=== PATIENT | male | born 1970 | race Caucasian/White ===

== ENCOUNTER 2016-08-28 10:26 | Observation (INO) | payer OTHER ==
[2016-08-28] MEDS ORDERED: methylPREDNISolone Sodium Succinate 125 MG/2 ML SDV IVPUSH ONE (10:52)
[2016-08-28] MEDS: Sodium Chloride 0.9% 1,000 ML IV ONE ×2 (11:08→15:13)
--- NOTE | 2016-08-28 11:08 | EDM.PDOC ---
<Hiren Fitzgerald - Last Filed: 08/28/16 12:38> ED HISTORY OF PRESENT ILLNESS - General Chief Complaint: Respiratory Problem Stated Complaint: ASHMA Time Seen by Provider: 08/28/16 10:53 - Related Data Allergies/ADRs: Allergies Allergy/AdvReac Type Severity Reaction Status Date / Time No Known Allergies Allergy Verified 08/28/16 10:44 Home Meds: Home Meds Albuterol [Ventolin HFA] 2 inh INH BID 08/28/16 [History] Albuterol/Ipratropium [DuoNeb 3.0-0.5 MG/3 ML] 1 ampule PO ASDIRECTED 08/28/16 [ History] Losartan/Hydrochlorothiazide [Losartan-HCTZ 50-12.5 MG] 1 tab PO DAILY 08/28/16 [History] Mometasone/Formoterol [Dulera 200-5 MCG] 2 inh PO BID 08/28/16 [History] Montelukast [Singulair] 1 tab PO DAILY 08/28/16 [History] Course - Vital Signs Last Recorded V/S: Last Vital Signs Temp 36.5 C 08/28/16 11:41 Pulse 97 08/28/16 13:35 Resp 16 08/28/16 11:41 BP 150/72 H 08/28/16 13:35 Pulse Ox 88 L 08/28/16 13:35 - Orders/Labs/Meds Orders: Active Orders 24 hr Category Date Time Status RT Aerosol Therapy [RC] ASDIRECTED Care 08/28/16 11:40 Active Magnesium Sulfate/Water [Magnesium Sulfate 2 GM in Med 08/28/16 12:48 Active Water 50 ML] 2 gm Premix Bag 1 bag IV ONETIME Medication Orders Magnesium Sulfate 2 gm/ Premix 50 mls @ 25 mls/hr IV ONETIME ONE Stop: 08/28/16 14:47 Last Admin: 08/28/16 13:01 Dose: 25 mls/hr Labs: Laboratory Tests 08/28/16 08/28/16 Range/Units 11:16 11:16 WBC 7.09 (4.0-11.0) K/uL RBC 4.68 (4.50-5.90) M/uL Hgb 14.6 (13.0-17.0) g/dL Hct 42.8 (38.0-50.0) % MCV 91.5 (80.0-98.0) fL MCH 31.2 (27.0-32.0) pg MCHC 34.1 (31.0-37.0) g/dL RDW Std Deviation 47.0 (28.0-62.0) fl RDW Coeff of Jesika 14 (11.0-15.0) % Plt Count 224 (150-400) K/uL MPV 9.60 (7.40-12.00) fL Neut % (Auto) 69.7 (48.0-80.0) % Lymph % (Auto) 12.7 L (16.0-40.0) % Grundy % (Auto) 3.8 (0.0-15.0) % Eos % (Auto) 12.7 H (0.0-7.0) % Baso % (Auto) 1.1 (0.0-1.5) % Neut # (Auto) 4.9 (1.4-5.7) K/uL Lymph # (Auto) 0.9 (0.6-2.4) K/uL Grundy # (Auto) 0.3 (0.0-0.8) K/uL Eos # (Auto) 0.9 H (0.0-0.7) K/uL Baso # (Auto) 0.1 (0.0-0.1) K/uL Nucleated RBC % 0.0 /100WBC Nucleated RBCs # 0 K/uL Sodium 142 (136-146) mmol/L Potassium 4.2 (3.5-5.1) mmol/L Chloride 113 H (98-110) mmol/L Carbon Dioxide 19 L (21-31) mmol/L BUN 22 (6.0-23.0) mg/dL Creatinine 1.1 (0.6-1.5) mg/dL Est Cr Clr Drug Dosing 88.42 mL/min Estimated GFR (MDRD) > 60.0 ml/min Glucose 104 (60-110) mg/dL Calcium 8.8 (8.8-10.8) mg/dL Total Bilirubin 0.9 (0.1-1.5) mg/dL AST 29 (5-40) IU/L ALT 66 H (8-54) IU/L Alkaline Phosphatase 83 (40-150) Total Protein 6.8 (6.0-8.0) g/dL Albumin 4.1 (3.5-5.0) g/dL Globulin 2.7 (2.0-3.5) g/dL Albumin/Globulin Ratio 1.5 (1.3-2.8) Meds: Medications Generic Name Dose Route Start Last Admin Trade Name Freq PRN Reason Stop Dose Admin Magnesium Sulfate 2 gm/ Premix 50 mls @ 25 mls/hr 08/28/16 12:48 08/28/16 13: 01 IV 08/28/16 14:47 25 mls/hr ONETIME ONE Administration Discontinued Medications Generic Name Dose Route Start Last Admin Trade Name Freq PRN Reason Stop Dose Admin Sodium Chloride 1,000 mls @ 999 mls/hr 08/28/16 10:52 08/28/16 11:08 Normal Saline IV 08/28/16 11:52 999 mls/hr STAT ONE Administration Methylprednisolone Sodium Succinate 125 mg 08/28/16 10:52 08/28/16 11:07 Solu-Medrol IVPUSH 08/28/16 10:53 125 mg ONETIME ONE Administration Racepinephrine 0.5 ml 08/28/16 11:40 08/28/16 11:46 S-2 2.25% NEB 08/28/16 11:41 0.5 ml ONETIME ONE Administration Departure - Departure Disposition: Home, Self-Care 01 Clinical Impression: Exacerbation of asthma Instructions: Asthma, Adult Referrals: PCP,None [Primary Care Provider] - Forms: ED Department Discharge Additional Instructions: The following information is given to patients seen in the emergency department who are being discharged to home. This information is to outline your options for follow-up care. We provide all patients seen in our emergency department with a follow-up referral. The need for follow-up, as well as the timing and circumstances, are variable depending upon the specifics of your emergency department visit. If you don't have a primary care physician on staff, we will provide you with a referral. We always advise you to contact your personal physician following an emergency department visit to inform them of the circumstance of the visit and for follow-up with them and/or the need for any referrals to a consulting specialist. The emergency department will also refer you to a specialist when appropriate. This referral assures that you have the opportunity for follow-up care with a specialist. All of these measure are taken in an effort to provide you with optimal care, which includes your follow-up. Under all circumstances we always encourage you to contact your private physician who remains a resource for coordinating your care. When calling for follow-up care, please make the office aware that this follow-up is from your recent emergency room visit. If for any reason you are refused follow-up, please contact the [facility] Emergency Department at and asked to speak to the emergency department charge nurse. Take your routine asthma medicine as directed Followup with your primary care provider one to 2 days There will be benefit for a pulmonology workup as well as an general manager land department Return to ED as needed as discussed - My Orders Last 24 Hours: My Active Orders 08/28/16 11:40 RT Aerosol Therapy [RC] ASDIRECTED - Assessment/Plan Last 24 Hours: My Active Orders 08/28/16 11:40 RT Aerosol Therapy [RC] ASDIRECTED <Hernan Terry - Last Filed: 08/28/16 13:59> ED HISTORY OF PRESENT ILLNESS - General Source of Information: Reports: Patient, Family History Limitations: Reports: No limitations - History of Present Illness INITIAL COMMENTS - FREE TEXT/NARRATIVE: History of present illness: [51-year-old male presenting with acute onset of shortness of breath. Patient has a long-term history of asthma with a reactive airway component and [facility]. Provider [facility] called and requested we evaluate and treat patient further due to their limited resources.] Review of systems: As per history of present illness and below otherwise all systems reviewed and negative. Past medical history: As per history of present illness and as reviewed below otherwise noncontributory. Surgical history: As per history of present illness and as reviewed below otherwise noncontributory. Social history: No reported history of drug or alcohol abuse. Family history: As per history of present illness and as reviewed below otherwise noncontributory. Physical exam: HEENT: Atraumatic, normocephalic, pupils reactive, negative for conjunctival pallor or scleral icterus, mucous membranes moist, throat clear, neck supple, nontender, trachea midline. Lungs: Clear to auscultation, breath sounds equal bilaterally, chest nontender. Heart: S1S2, regular, negative for clicks, rubs, or JVD. Abdomen: Soft, nondistended, nontender. Negative for masses or hepatosplenomegaly. Negative for costovertebral tenderness. Pelvis: Stable nontender. Genitourinary: Deferred. Rectal: Deferred. Extremities: Atraumatic, negative for cords or calf pain. Neurovascular unremarkable. Neuro: Awake, alert, oriented. Cranial nerves II through XII unremarkable. Cerebellum unremarkable. Motor and sensory unremarkable throughout. Exam nonfocal. Diagnostics: [Chest x-ray, CBC, CMP] Therapeutics: [Syncope, magnesium, IV fluid, some lateral] Impression: [Asthma exacerbation] Plan: [Continue on asthma meds] Definitive disposition and diagnosis as appropriate pending reevaluation and review of above. ED ROS GENERAL - Review of Systems Review Of Systems: See Below (History of present illness) ED EXAM, GENERAL - Physical Exam Exam: See Below (See history of present illness) Course - Vital Signs Last Recorded V/S: Last Vital Signs Temp 36.5 C 08/28/16 11:41 Pulse 97 08/28/16 13:35 Resp 16 08/28/16 11:41 BP 150/72 H 08/28/16 13:35 Pulse Ox 88 L 08/28/16 13:35 - Orders/Labs/Meds Labs: Laboratory Tests 08/28/16 08/28/16 Range/Units 11:16 11:16 WBC 7.09 (4.0-11.0) K/uL RBC 4.68 (4.50-5.90) M/uL Hgb 14.6 (13.0-17.0) g/dL Hct 42.8 (38.0-50.0) % MCV 91.5 (80.0-98.0) fL MCH 31.2 (27.0-32.0) pg MCHC 34.1 (31.0-37.0) g/dL RDW Std Deviation 47.0 (28.0-62.0) fl RDW Coeff of Jesika 14 (11.0-15.0) % Plt Count 224 (150-400) K/uL MPV 9.60 (7.40-12.00) fL Neut % (Auto) 69.7 (48.0-80.0) % Lymph % (Auto) 12.7 L (16.0-40.0) % Grundy % (Auto) 3.8 (0.0-15.0) % Eos % (Auto) 12.7 H (0.0-7.0) % Baso % (Auto) 1.1 (0.0-1.5) % Neut # (Auto) 4.9 (1.4-5.7) K/uL Lymph # (Auto) 0.9 (0.6-2.4) K/uL Grundy # (Auto) 0.3 (0.0-0.8) K/uL Eos # (Auto) 0.9 H (0.0-0.7) K/uL Baso # (Auto) 0.1 (0.0-0.1) K/uL Nucleated RBC % 0.0 /100WBC Nucleated RBCs # 0 K/uL Sodium 142 (136-146) mmol/L Potassium 4.2 (3.5-5.1) mmol/L Chloride 113 H (98-110) mmol/L Carbon Dioxide 19 L (21-31) mmol/L BUN 22 (6.0-23.0) mg/dL Creatinine 1.1 (0.6-1.5) mg/dL Est Cr Clr Drug Dosing 88.42 mL/min Estimated GFR (MDRD) > 60.0 ml/min Glucose 104 (60-110) mg/dL Calcium 8.8 (8.8-10.8) mg/dL Total Bilirubin 0.9 (0.1-1.5) mg/dL AST 29 (5-40) IU/L ALT 66 H (8-54) IU/L Alkaline Phosphatase 83 (40-150) Total Protein 6.8 (6.0-8.0) g/dL Albumin 4.1 (3.5-5.0) g/dL Globulin 2.7 (2.0-3.5) g/dL Albumin/Globulin Ratio 1.5 (1.3-2.8) Meds: Medications Generic Name Dose Route Start Last Admin Trade Name Freq PRN Reason Stop Dose Admin Magnesium Sulfate 2 gm/ Premix 50 mls @ 25 mls/hr 08/28/16 12:48 08/28/16 13: 01 IV 08/28/16 14:47 25 mls/hr ONETIME ONE Administration Discontinued Medications Generic Name Dose Route Start Last Admin Trade Name Freq PRN Reason Stop Dose Admin Sodium Chloride 1,000 mls @ 999 mls/hr 08/28/16 10:52 08/28/16 11:08 Normal Saline IV 08/28/16 11:52 999 mls/hr STAT ONE Administration Methylprednisolone Sodium Succinate 125 mg 08/28/16 10:52 08/28/16 11:07 Solu-Medrol IVPUSH 08/28/16 10:53 125 mg ONETIME ONE Administration Racepinephrine 0.5 ml 08/28/16 11:40 08/28/16 11:46 S-2 2.25% NEB 08/28/16 11:41 0.5 ml ONETIME ONE Administration Departure - Departure Time of Disposition: 13:56 Condition: good
[2016-08-28] MEDS ORDERED: Racepinephrine 2.25% 0.5 ML Neb Soln NEB ONE (11:40)
[2016-08-28 12:00] LABS: CHLORIDE,CL 113 mmol/L (98-110); SODIUM,NA 142 mmol/L (136-146)
[2016-08-28] MEDS ORDERED: Magnesium Sulfate/Water 2 GM in Premix Bag 1 BAG IV ONE (12:48)
--- NOTE | 2016-08-28 13:14 | CR ---
EXAMINATION: Two-view chest (PA and Lateral views). HISTORY: Shortness of breath. FINDINGS: The trachea is midline. The cardiomediastinal silhouette is within normal limits. No pulmonary infil trates, effusions or pneumothorax. Osseous structures appear unremarkable. IMPRESSION: No acute cardiopulmonary process.
[2016-08-28] MEDS ORDERED: Albuterol/Ipratropium 3.0-0.5 MG/3 ML Neb Soln NEB ONE (14:12)
[2016-08-28] MEDS ORDERED: Sodium Chloride 0.9% 250 ML IV SCH (15:00)
--- NOTE | 2016-08-28 16:06 | PCM.HP ---
H&P History of Present Illness - General Date of Service: 08/28/16 Admit Problem/Dx: Admission Diagnosis/Problem Admission Diagnosis/Problem Asthma without status asthmaticus Source of Information: Patient, Family ( Julia at bedside) History Limitations: Reports: No limitations - History of Present Illness Initial Comments - Free Text/Narative: This 46 year old male with pmh of asthma, environmental allergies, and HTN presented to the ED today with complaints of 4 day history of SOB, cough, and sinus congestion. It has progressively worsened and his , Julia, urged him to be evaluated. He denies fever, chills, chest pain or palpitations. No N/V or abdominal pain. He takes Singulair, Dulera, Albuterol inhaler PRN, and Flonase occasionally. He reports being in [place] has worsened his allergies significantly than home in the [facility]. His contract ends in October and is hoping to move back home. In the ED no leukocytosis noted, eosinophils elevated, 12.7. BMP WNL. CXR negative. He was noted to have mild hypoxia on RA, with wheezing throughout. He was treated with Duonebs, Solumedrol, and Magnesium IV. He will be admitted for asthma exacerbation and mild hypoxia. - Related Data Allergies/Adverse Reactions: Allergies Allergy/AdvReac Type Severity Reaction Status Date / Time No Known Allergies Allergy Verified 08/28/16 10:44 Home Medications: Home Meds Albuterol [Ventolin HFA] 2 inh INH BID 08/28/16 [History] Albuterol/Ipratropium [DuoNeb 3.0-0.5 MG/3 ML] 1 ampule PO ASDIRECTED 08/28/16 [ History] Losartan/Hydrochlorothiazide [Losartan-HCTZ 50-12.5 MG] 1 tab PO DAILY 08/28/16 [History] Mometasone/Formoterol [Dulera 200-5 MCG] 2 inh PO BID 08/28/16 [History] Montelukast [Singulair] 1 tab PO DAILY 08/28/16 [History] Past Medical History Cardiovascular History: Reports: High cholesterol, Hypertension. Denies: Afib, Blood clots/VTE/DVT, HI Respiratory History: Reports: Asthma. Denies: PE, Sleep apnea Gastrointestinal History: Reports: Chronic constipation, GERD. Denies: Gastritis, GI bleed Endocrine/Metabolic History: Reports: Obesity/BMI 30+. Denies: Diabetes, type II, Hypothyroidism - Infectious Disease History Infectious Disease History: Reports: Chicken pox - Past Surgical History Musculoskeletal Surgical History: Reports: Other (see below) Other Musculoskeletal Surgeries/Procedures:: Right arm bicep muscle reattachment Social & Family History - Family History Family Medical History: Noncontributory - Tobacco Use Smoking Status *Q: Never Smoker Tobacco Use Within Last Twelve Months: Smokeless Tobacco Packs/Tins Daily: 1 (1 tin per day) Second Hand Smoke Exposure: Yes - Tobacco Core Measures Tobacco Use/Smoking Within Last 30 Days: Yes Smoking Frequency Within Last 30 Days: Reports: None Smokeless Tobacco Use in Last 30 Days: Yes Smokeless Tobacco Use History: Chewing Tobacco - Caffeine Use Caffeine Use: Reports: Soda - Alcohol Use Alcohol Use Frequency: Socially - Recreational Drug Use Recreational Drug Use: No - Living Situation & Occupation Living situation: Reports: Occupation: employed H&P Review of Systems - Review of Systems: Review Of Systems: See Below General: Reports: no symptoms. Denies: fever, chills, weakness HEENT: Reports: sinus congestion, other (itchy ears) Pulmonary: Reports: Shortness of Breath, Wheezing, Pleuritic Chest Pain, Cough. Denies: Sputum Cardiovascular: Reports: no symptoms. Denies: chest pain, palpitations, edema Gastrointestinal: Reports: No symptoms, Constipation (chronic). Denies: Black stool, Bloody stool, Nausea, Vomiting Genitourinary: Reports: no symptoms. Denies: dysuria, frequency, burning, pain Musculoskeletal: Reports: no symptoms Skin: Reports: no symptoms Psychiatric: Reports: no symptoms Neurological: Reports: No Symptoms Hematologic/Lymphatic: Reports: no symptoms Immunologic: Reports: no symptoms Exam - Exam Exam: See Below - Vital Signs Vital Signs: Last Vital Signs Temp 98.2 F 08/28/16 14:15 Pulse 101 H 08/28/16 14:15 Resp 20 08/28/16 14:15 BP 145/92 H 08/28/16 14:15 Pulse Ox 92 L 08/28/16 14:15 Weight: 127.006 kg - Exam General: alert, oriented, cooperative HEENT: Conjunctiva clear, EACs clear, EOMI, Hearing intact, Mucosa moist & pink , Posterior pharynx clear. No: Nares patent (sinus congestion) Neck: supple, trachea midline, 2+ carotid pulse wo bruit Lungs: Decreased breath sounds, Rhonchi, Wheezing Cardiovascular: regular rate, regular rhythm, normal S1, normal S2 Abdomen: normal bowel sounds, soft. No: organomegaly Extremities: normal inspection, normal pulses Neuro Extensive - Mental Status: alert, oriented x3, normal mood/affect, normal cognition Psychiatric: alert, normal affect, normal mood - Patient Data Result Diagrams: 08/28/16 11:16 08/28/16 11:16 *Q Meaningful Use (ADM) - VTE *Q VTE Criteria *Q: - VTE Risk Assess *Q Each Risk Factor Represents 1 Point: Age 41 - 59 years Total Score 1 Point Risk Factors: 1 Each Risk Factor Represents 2 Points: None Total Score 2 Point Risk Factors: 0 Each Risk Factor Represents 3 Points: None Total Score 3 Point Risk Factors: 0 Each Risk Factor Represents 5 Points: None Total Score 5 Point Risk Factors: 0 Venous Thromboembolism Risk Factor Score *Q: 1 - Stroke *Q Stroke Criteria *Q: - AMI *Q AMI Criteria *Q: - Problem List (1) Exacerbation of asthma SNOMED Code(s): 462612048 ICD Code: J45.901 - UNSPECIFIED ASTHMA WITH (ACUTE) EXACERBATION Status: Acute Current Visit: Yes (2) Environmental and seasonal allergies SNOMED Code(s): 325109536, 214666854, 648596833 ICD Code: J30.89 - OTHER ALLERGIC RHINITIS Status: Acute Current Visit: Yes (3) HTN (hypertension) SNOMED Code(s): 79549571 ICD Code: I10 - ESSENTIAL (PRIMARY) HYPERTENSION Status: Chronic Current Visit: Yes Qualifiers: Hypertension type: essential hypertension Qualified Code(s): I10 - Essential (primary) hypertension Problem List Initiated/Reviewed/Updated: Yes Orders Last 24hrs: Medication Orders Sodium Chloride (Normal Saline) 250 mls @ 999 mls/hr IV STAT DOMINIQUE Assessment/Plan Comment:: This 46 year old male admitted with asthma exacerbation with mild hypoxia 1. Asthma exacerbation iwth mild hypoxia: Continue IV Solu-medrol IV 125 mg Q8hrs. Duonebs, oxygen as needed. Continue Singulair and Flonase. Will add Loratadine. 2. HTN: Continue Losartan/HCTZ VTE: SCDs Dispo: 1-2 days pending improvement.
[2016-08-28] MEDS ORDERED: Acetaminophen 325 MG Tab PO PRN (16:12)
[2016-08-28] MEDS ORDERED: Ondansetron 4 MG/2 ML SDV IVPUSH PRN (16:12)
[2016-08-28] MEDS ORDERED: Albuterol 0.083% 2.5 MG/3 ML Neb Soln NEB PRN (16:12)
[2016-08-28] MEDS: Loratadine 10 MG Tab PO SCH (17:07)
[2016-08-28] MEDS ORDERED: methylPREDNISolone Sodium Succinate 125 MG/2 ML SDV IVPUSH SCH ×2 (18:00→22:00)
[2016-08-28] MEDS: Albuterol/Ipratropium 3.0-0.5 MG/3 ML Neb Soln NEB SCH ×2 (18:09→20:59)
[2016-08-28] MEDS ORDERED: Hydrochlorothiazide/Losartan 12.5-50 mg Tab PO SCH (21:00)
[2016-08-28] MEDS ORDERED: LORazepam 1 MG Tab PO ONE (21:00)
[2016-08-28] MEDS ORDERED: DULERA PO SCH (21:00)
[2016-08-28] MEDS: Fluticasone Propionate Nasal Spray 16 GM Bottle NASBOTH SCH (21:01)
[2016-08-29] MEDS: Albuterol/Ipratropium 3.0-0.5 MG/3 ML Neb Soln NEB SCH ×3 (02:13→10:31)
[2016-08-29 05:38] LABS: CHLORIDE,CL 111 mmol/L (98-110); SODIUM,NA 140 mmol/L (136-146)
--- NOTE | 2016-08-29 07:50 | PCM.PN ---
- General Info Date of Service: 08/29/16 Admission Dx/Problem (Free Text): Admission Diagnosis/Problem Admission Diagnosis/Problem Asthma without status asthmaticus - Patient Data Vitals - most recent: Last Vital Signs Temp 97.4 F 08/29/16 04:00 Pulse 111 H 08/29/16 00:28 Resp 20 08/29/16 04:00 BP 141/84 H 08/29/16 04:00 Pulse Ox 90 L 08/29/16 04:00 Weight - most recent: 127.006 kg I&O - last 24 hours: Intake & Output 08/28/16 08/29/16 08/29/16 22:59 06:59 14:59 Intake Total 200 Output Total 3 Balance 197 Lab Results last 24 hrs: Laboratory Results - last 24 hr 08/29/16 Range/Units 04:49 Sodium 140 (136-146) mmol/L Potassium 4.7 (3.5-5.1) mmol/L Chloride 111 H (98-110) mmol/L Carbon Dioxide 18 L (21-31) mmol/L BUN 19 (6.0-23.0) mg/dL Creatinine 1.1 (0.6-1.5) mg/dL Est Cr Clr Drug Dosing 88.06 mL/min Estimated GFR (MDRD) > 60.0 ml/min Glucose 130 H (60-110) mg/dL Calcium 9.5 (8.8-10.8) mg/dL Med Orders - Current: Current Medications Acetaminophen (Tylenol) 650 mg PO Q4H PRN PRN Reason: Pain Albuterol (Proventil Neb Soln) 2.5 mg NEB Q2H PRN PRN Reason: Shortness Of Breath/wheezing Albuterol/Ipratropium (Duoneb 3.0-0.5 Mg/3 Ml) 3 ml NEB Q4HRRT [facility] Last Admin: 08/29/16 05:59 Dose: Not Given Fluticasone Propionate (Flonase) 0 gm NASBOTH BID [facility] Last Admin: 08/28/16 21:01 Dose: 1 spray HCTZ/Losartan Potassium (Hyzaar 50-12.5 Mg) 1 tab PO BEDTIME [facility] Last Admin: 08/28/16 21:01 Dose: 1 tab Sodium Chloride (Normal Saline) 250 mls @ 999 mls/hr IV STAT DOMINIQUE Loratadine (Claritin) 10 mg PO DAILY [facility] Last Admin: 08/28/16 17:07 Dose: 10 mg Methylprednisolone Sodium Succinate (Solu-Medrol) 60 mg IVPUSH Q12H [facility] Last Admin: 08/28/16 22:44 Dose: 60 mg Montelukast Sodium (Singulair) 10 mg PO DAILY [facility] Dulera 100 Mcg/ 5mcg (Own Med) 0 each PO BID [facility] Ondansetron HCl (Zofran) 4 mg IVPUSH Q4H PRN PRN Reason: Nausea Discontinued Medications Albuterol/Ipratropium (Duoneb 3.0-0.5 Mg/3 Ml) 3 ml NEB ONETIME ONE Stop: 08/28/16 14:13 Last Admin: 08/28/16 14:20 Dose: 3 ml Sodium Chloride (Normal Saline) 1,000 mls @ 999 mls/hr IV STAT ONE Stop: 08/28/16 11:52 Last Admin: 08/28/16 15:13 Dose: 999 mls/hr Magnesium Sulfate 2 gm/ Premix 50 mls @ 25 mls/hr IV ONETIME ONE Stop: 08/28/16 14:47 Last Admin: 08/28/16 13:01 Dose: 25 mls/hr Lorazepam (Ativan) 1 mg PO ONETIME ONE Stop: 08/28/16 21:01 Last Admin: 08/28/16 21:02 Dose: 1 mg Methylprednisolone Sodium Succinate (Solu-Medrol) 125 mg IVPUSH ONETIME ONE Stop: 08/28/16 10:53 Last Admin: 08/28/16 11:07 Dose: 125 mg Methylprednisolone Sodium Succinate (Solu-Medrol) 125 mg IVPUSH Q8H [facility] Dulera (Mometasone/ (Formoterol) 200-5mcg) 2 each PO BID [facility] Last Admin: 08/29/16 02:13 Dose: Not Given Racepinephrine (S-2 2.25%) 0.5 ml NEB ONETIME ONE Stop: 08/28/16 11:41 Last Admin: 08/28/16 11:46 Dose: 0.5 ml - Problem List & Annotations (1) Exacerbation of asthma SNOMED Code(s): 164971843 Code(s): J45.901 - UNSPECIFIED ASTHMA WITH (ACUTE) EXACERBATION Status: Acute Current Visit: Yes (2) Environmental and seasonal allergies SNOMED Code(s): 641283510, 492760997, 181255296 Code(s): J30.89 - OTHER ALLERGIC RHINITIS Status: Acute Current Visit: Yes (3) HTN (hypertension) SNOMED Code(s): 57951619 Code(s): I10 - ESSENTIAL (PRIMARY) HYPERTENSION Status: Chronic Current Visit: Yes Qualifiers: Hypertension type: essential hypertension Qualified Code(s): I10 - Essential (primary) hypertension - My Orders Last 24 Hours: My Active Orders 08/28/16 16:12 Intake and Output [RC] Q12H May Shower [RC] ASDIRECTED Oxygen Therapy [RC] PRN Up ad Naya [RC] ASDIRECTED Vital Signs [RC] Q4H Acetaminophen [Tylenol] 650 mg PO Q4H PRN Albuterol [Proventil Neb Soln] 2.5 mg NEB Q2H PRN Ondansetron [Zofran] 4 mg IVPUSH Q4H PRN Sequential Compression Device [OM.PC] Per Unit Routine Resuscitation Status Routine 08/28/16 16:13 Antiembolic Devices [RC] PER UNIT ROUTINE 08/28/16 16:14 RT Aerosol Therapy [RC] ASDIRECTED 08/28/16 16:15 Loratadine [Claritin] 10 mg PO DAILY 08/28/16 18:00 Albuterol/Ipratropium [DuoNeb 3.0-0.5 MG/3 ML] 3 ml NEB Q4HRRT 08/28/16 21:00 Fluticasone Propionate [Flonase] 0 gm NASBOTH BID Hydrochlorothiazide/Losartan [Hyzaar 50-12.5 MG] 1 tab PO BEDTIME 08/28/16 22:00 methylPREDNISolone Sod Succ [Solu-MEDROL] 60 mg IVPUSH Q12H 08/28/16 Dinner Regular Diet [DIET] 08/29/16 09:00 Montelukast [Singulair] 10 mg PO DAILY Non-Formulary Medication [NF Drug] 0 each PO BID - Plan Plan:: This 46 year old male admitted with asthma exacerbation with mild hypoxia 1. Asthma exacerbation iwth mild hypoxia: Continue IV Solu-medrol IV 125 mg Q8hrs. Duonebs, oxygen as needed. Continue Singulair and Flonase. Will add Loratadine. 2. HTN: Continue Losartan/HCTZ VTE: SCDs Dispo: 1-2 days pending improvement.
[2016-08-29 08:01] VITALS: BP 154/78
[2016-08-29] MEDS: Fluticasone Propionate Nasal Spray 16 GM Bottle NASBOTH SCH (08:34)
[2016-08-29] MEDS: Loratadine 10 MG Tab PO SCH (08:34)
--- NOTE | 2016-08-29 08:48 | PCM.DCSUM1 ---
Discharge Summary - Hospital Course Brief History: This 46 year old male with pmh of asthma, environmental allergies , and HTN presented to the ED 08/28/2016 with complaints of 4 day history of SOB, cough, and sinus congestion. It has progressively worsened and his , Julia, urged him to be evaluated, he was seen at local urgent care who referred to the ED for further evaluation. He denies fever, chills, chest pain or palpitations. No N/V or abdominal pain. He takes Singulair, Dulera, Albuterol inhaler PRN, and Flonase occasionally. [place] in [place] and is hoping to move back home. In the ED no leukocytosis noted, eosinophils elevated, 12.7. BMP WNL. CXR negative. He was noted to have mild hypoxia on RA, with wheezing throughout. He was treated with Duonebs, Solumedrol, and Magnesium IV. He will be admitted for asthma exacerbation and mild hypoxia. - Discharge Data Discharge Date: 08/29/16 Discharge Disposition: Home, Self-Care 01 Condition: Good - Discharge Diagnosis/Problem(s) (1) Neck strain SNOMED Code(s): 941146645 ICD Code: S16.1XXA - STRAIN OF MUSCLE, FASCIA AND TENDON AT NECK LEVEL, INIT Status: Acute Current Visit: No Qualifiers: Encounter type: initial encounter Qualified Code(s): S16.1XXA - Strain of muscle, fascia and tendon at neck level, initial encounter (2) HTN (hypertension) SNOMED Code(s): 72798450 Status: Chronic Current Visit: Yes (3) Exacerbation of asthma SNOMED Code(s): 158801111 Status: Acute Current Visit: Yes - Patient Instructions Diet: Regular Diet as Tolerated - Discharge Plan Prescriptions/Med Rec: predniSONE 20 mg PO WITHBREAKFAST #33 tablet Home Medications: Home Meds Albuterol [Ventolin 2 MG/5 ML] 02/01/16 [History] Aspirin 81 mg PO DAILY 02/01/16 [History] Mometasone/Formoterol [Dulera 200-5 MCG] 2 puff IH BIDRT 02/01/16 [History] Albuterol [Ventolin HFA] 05/06/16 [History] Albuterol [Ventolin HFA] 2 inh INH BID 08/28/16 [History] Albuterol/Ipratropium [DuoNeb 3.0-0.5 MG/3 ML] 1 ampule PO ASDIRECTED 08/28/16 [ History] Losartan/Hydrochlorothiazide [Losartan-HCTZ 50-12.5 MG] 1 tab PO DAILY 08/28/16 [History] Montelukast [Singulair] 1 tab PO DAILY 08/28/16 [History] Fluticasone Propionate [Flonase] 0 gm NASBOTH BID bottle 08/29/16 [Rx] Loratadine [Claritin] 10 mg PO DAILY #0 tablet 08/29/16 [Rx] predniSONE 20 mg PO WITHBREAKFAST #33 tablet 08/29/16 [Rx] Patient Handouts: Asthma, Adult, Prednisone tablets, Hypertension Referrals: Brock Gtz MD [Physician] - 09/05/16 10:00 am - Discharge Summary/Plan Comment DC Time >30 min.: No Discharge Summary/Plan Comment: Discharge diagnoses: Acute asthma exacerbation Seasonal allergies Omkar was treated with Solu-medrol 60 mg IV q12h for asthma exacerbation, as well as Loratadine, Flonase and Duonebs. This exacerbation is likely caused from seasonal allergies. Today he is off oxygen and sating 94% on RA with and without activity. He is feeling much better and is requesting discharge home. I will discharge him home today with continuing home inhalers, Dulera and albuterol nebulizers and inhaler PRN, SIngulair daily. I have encouraged him to use Flonase more regularly along with Loratadine. I will prescribed a long (2 weeks) steroid taper due to severity of exacerbation and mild hypoxia associated with it. He is to follow up with PCP in 1 week. He is to return to ED or clinic if any concerns should arise. - General Info Date of Service: 08/29/16 Admission Dx/Problem (Free Text: Admission Diagnosis/Problem Admission Diagnosis/Problem Asthma without status asthmaticus Subjective Update: Feeling much better today, Breathing has improving and is less SOB. Still feels like deep down he isn't opening up but feels 80% better compared to yesterday. reports similar feelings. He is removed off oygen this am, sating 94% on RA and ambulated with no decreased in oxygen. Requesting discharge this morning. Functional Status: Reports: pain controlled, tolerating diet, ambulating, urinating - Review of Systems General: Reports: No Symptoms. Denies: Fever HEENT: Reports: sinus congestion, other (ear itchiness has ). Denies: sore throat Pulmonary: Reports: shortness of breath (improved.), cough (dry cough intermittently). Denies: sputum Cardiovascular: Reports: No Symptoms. Denies: Chest Pain, Palpitations, Edema Gastrointestinal: Reports: No symptoms. Denies: Abdominal pain, Nausea, Vomiting Musculoskeletal: Reports: no symptoms Skin: Reports: no symptoms Neurological: Reports: No Symptoms Psychiatric: Reports: no symptoms - Patient Data Vitals - Most Recent: Last Vital Signs Temp 98.5 F 08/29/16 07:59 Pulse 111 H 08/29/16 00:28 Resp 20 08/29/16 07:59 BP 154/78 H 08/29/16 07:59 Pulse Ox 93 L 08/29/16 07:59 Weight - Most Recent: 127.006 kg I&O - Last 24 hours: Intake & Output 08/28/16 08/29/16 08/29/16 22:59 06:59 14:59 Intake Total 200 Output Total 3 Balance 197 Lab Results - Last 24 hrs: Laboratory Results - last 24 hr 08/29/16 Range/Units 04:49 Sodium 140 (136-146) mmol/L Potassium 4.7 (3.5-5.1) mmol/L Chloride 111 H (98-110) mmol/L Carbon Dioxide 18 L (21-31) mmol/L BUN 19 (6.0-23.0) mg/dL Creatinine 1.1 (0.6-1.5) mg/dL Est Cr Clr Drug Dosing 88.06 mL/min Estimated GFR (MDRD) > 60.0 ml/min Glucose 130 H (60-110) mg/dL Calcium 9.5 (8.8-10.8) mg/dL Med Orders - Current: Current Medications Acetaminophen (Tylenol) 650 mg PO Q4H PRN PRN Reason: Pain Albuterol (Proventil Neb Soln) 2.5 mg NEB Q2H PRN PRN Reason: Shortness Of Breath/wheezing Albuterol/Ipratropium (Duoneb 3.0-0.5 Mg/3 Ml) 3 ml NEB Q4HRRT [facility] Last Admin: 08/29/16 05:59 Dose: Not Given Fluticasone Propionate (Flonase) 0 gm NASBOTH BID [facility] Last Admin: 08/29/16 08:34 Dose: 1 spray HCTZ/Losartan Potassium (Hyzaar 50-12.5 Mg) 1 tab PO BEDTIME [facility] Last Admin: 08/28/16 21:01 Dose: 1 tab Sodium Chloride (Normal Saline) 250 mls @ 999 mls/hr IV STAT [facility] Loratadine (Claritin) 10 mg PO DAILY [facility] Last Admin: 08/29/16 08:34 Dose: 10 mg Methylprednisolone Sodium Succinate (Solu-Medrol) 80 mg IVPUSH Q12H [facility] Montelukast Sodium (Singulair) 10 mg PO DAILY [facility] Last Admin: 08/29/16 08:34 Dose: 10 mg Dulera 100 Mcg/ 5mcg (Own Med) 0 each PO BID [facility] Last Admin: 08/29/16 08:35 Dose: 2 each Ondansetron HCl (Zofran) 4 mg IVPUSH Q4H PRN PRN Reason: Nausea Discontinued Medications Albuterol/Ipratropium (Duoneb 3.0-0.5 Mg/3 Ml) 3 ml NEB ONETIME ONE Stop: 08/28/16 14:13 Last Admin: 08/28/16 14:20 Dose: 3 ml Sodium Chloride (Normal Saline) 1,000 mls @ 999 mls/hr IV STAT ONE Stop: 08/28/16 11:52 Last Admin: 08/28/16 15:13 Dose: 999 mls/hr Magnesium Sulfate 2 gm/ Premix 50 mls @ 25 mls/hr IV ONETIME ONE Stop: 08/28/16 14:47 Last Admin: 08/28/16 13:01 Dose: 25 mls/hr Lorazepam (Ativan) 1 mg PO ONETIME ONE Stop: 08/28/16 21:01 Last Admin: 08/28/16 21:02 Dose: 1 mg Methylprednisolone Sodium Succinate (Solu-Medrol) 125 mg IVPUSH ONETIME ONE Stop: 08/28/16 10:53 Last Admin: 08/28/16 11:07 Dose: 125 mg Methylprednisolone Sodium Succinate (Solu-Medrol) 125 mg IVPUSH Q8H [facility] Methylprednisolone Sodium Succinate (Solu-Medrol) 60 mg IVPUSH Q12H [facility] Last Admin: 08/28/16 22:44 Dose: 60 mg Dulera (Mometasone/ (Formoterol) 200-5mcg) 2 each PO BID [facility] Last Admin: 08/29/16 02:13 Dose: Not Given Racepinephrine (S-2 2.25%) 0.5 ml NEB ONETIME ONE Stop: 08/28/16 11:41 Last Admin: 08/28/16 11:46 Dose: 0.5 ml - Exam Quality Assessment: Reports: DVT prophylaxis. Denies: supplemental oxygen General: Reports: alert, oriented, cooperative HEENT: Reports: Pupils equal, Pupils reactive, EOMI, Mucous membr. moist/pink Neck: Reports: supple Lungs: Reports: Clear to auscultation, Normal respiratory effort, Decreased breath sounds (to bilateral bases). Denies: Wheezing Cardiovascular: Reports: Regular Rate, Regular Rhythm Abdomen: Reports: bowel sounds present, soft, no tenderness, no distension Extremities: Reports: no edema, normal pulses *Q Meaningful Use (DIS) - VTE *Q VTE Criteria *Q: - Stroke *Q Stroke Criteria *Q: - AMI *Q AMI Criteria *Q:
[2016-08-29] MEDS ORDERED: DULERA PO SCH (09:00)
[2016-08-29] MEDS ORDERED: Montelukast 10 MG Tab PO SCH (09:00)
[2016-08-29] MEDS ORDERED: methylPREDNISolone Sodium Succinate 125 MG/2 ML SDV IVPUSH SCH (10:00)
== END 2016-08-29 11:30 | disposition home or self-care (01) ==
LOC: EDBD 10:26 → MW.ED 10:26 → MW.MS 15:30 → MERGE 15:33 → MW.MS 15:33
PROVIDERS: ADMIT Internal Medicine; ATTEND Internal Medicine
DX: J45.901 Unspecified asthma with (acute) exacerbation (principal); Z79.82 Long term (current) use of aspirin; I10 Essential (primary) hypertension; E78.00 Pure hypercholesterolemia, unspecified; K21.9 Gastro-esophageal reflux disease without esophagitis; K59.09 Other constipation; F17.220 Nicotine dependence, chewing tobacco, uncomplicated
CPT/HCPCS: 36415; 71020; 80048; 80053; 84484; 85025; 93005; 94640; 94664; 96361; 96365; 96375; 96376; 99285; A9270; G0378; J2930; J3475; J7040; 99283

== ENCOUNTER 2016-12-13 14:38 | Emergency (ER) | payer OTHER ==
[2016-12-13 15:03] VITALS: BP 149/80
[2016-12-13] MEDS ORDERED: Ketorolac 60 MG/2 ML SDV IM ONE (15:03)
--- NOTE | 2016-12-13 15:07 | EDM.PDOC ---
ED HPI GENERAL MEDICAL PROBLEM - General Chief Complaint: General Stated Complaint: CAN'T WALK Time Seen by Provider: 12/13/16 14:41 Source of Information: Reports: Patient History Limitations: Reports: No Limitations - History of Present Illness INITIAL COMMENTS - FREE TEXT/NARRATIVE: History of present illness: []Patient was sitting at his desk for about 18 hours and started feeling pain in his right ankle. He denies any trauma, fevers but has chills. He denies any leg pain, shortness of breath or chest pain. Patient has a history of gout but states it doesn't feel like a typical gout attack. Review of systems: As per history of present illness and below otherwise all systems reviewed and negative. Past medical history: As per history of present illness and as reviewed below otherwise noncontributory. Surgical history: As per history of present illness and as reviewed below otherwise noncontributory. Social history: No reported history of drug or alcohol abuse. Family history: As per history of present illness and as reviewed below otherwise noncontributory. Physical exam: General: Well developed, well nourished in NAD HEENT: Atraumatic, normocephalic, pupils reactive, negative for conjunctival pallor or scleral icterus, mucous membranes moist, throat clear, neck supple, nontender, trachea midline. Lungs: Clear to auscultation, breath sounds equal bilaterally, chest nontender. Heart: S1S2, regular, negative for clicks, rubs, or JVD. Abdomen: Soft, nondistended, nontender. Negative for masses or hepatosplenomegaly. Negative for costovertebral tenderness. Pelvis: Stable nontender. Genitourinary: Deferred. Rectal: Deferred. Extremities: Atraumatic, negative for cords or calf pain. Neurovascular unremarkable. Neuro: Awake, alert, oriented. Cranial nerves II through XII unremarkable. Cerebellum unremarkable. Motor and sensory unremarkable throughout. Exam nonfocal. Diagnostics: []CBC is mildly elevated uric acid is negative ESR and CRP are also elevated. X- rays negative Therapeutics: []Rocephin given here in the ED and Toradol for pain Impression: []Cellulitis right foot and ankle Plan: []Keflex 4 times a day for 10 days tramadol for pain, follow-up with PMD in 1-2 days for recheck. Definitive disposition and diagnosis as appropriate pending reevaluation and review of above. right foot Pain Score (Numeric/FACES): 9 - Related Data Allergies Allergy/AdvReac Type Severity Reaction Status Date / Time No Known Allergies Allergy Verified 12/13/16 14:57 Home Meds: Home Meds Albuterol [Ventolin 2 MG/5 ML] 02/01/16 [History] Aspirin 81 mg PO DAILY 02/01/16 [History] Mometasone/Formoterol [Dulera 200-5 MCG] 2 puff IH BIDRT 02/01/16 [History] Albuterol [Ventolin HFA] 05/06/16 [History] Albuterol [Ventolin HFA] 2 inh INH BID 08/28/16 [History] Albuterol/Ipratropium [DuoNeb 3.0-0.5 MG/3 ML] 1 ampule PO ASDIRECTED 08/28/16 [ History] Montelukast [Singulair] 1 tab PO DAILY 08/28/16 [History] Fluticasone Propionate [Flonase] 0 gm NASBOTH BID bottle 08/29/16 [Rx] Loratadine [Claritin] 10 mg PO DAILY #0 tablet 08/29/16 [Rx] Cephalexin [Keflex] 500 mg PO Q6HR #40 cap 12/13/16 [Rx] Losartan [Cozaar] 100 mg PO DAILY 12/13/16 [History] traMADol [Ultram] 50 mg PO Q8H PRN #12 tablet 12/13/16 [Rx] Past Medical History HEENT History: Reports: Impaired Vision Other HEENT History: Patient reports farsightedness Cardiovascular History: Reports: High Cholesterol, Hypertension Respiratory History: Reports: Asthma. Denies: PE, Sleep Apnea Gastrointestinal History: Reports: Chronic Constipation, GERD, None Genitourinary History: Reports: None, Retention, Urinary Musculoskeletal History: Reports: None Neurological History: Reports: None Psychiatric History: Reports: None Endocrine/Metabolic History: Reports: None, Obesity/BMI 30+ Hematologic History: Reports: None Oncologic (Cancer) History: Reports: None - Infectious Disease History Infectious Disease History: Reports: Chicken Pox, None - Past Surgical History HEENT Surgical History: Reports: Naso-Sinus Surgery, Polypectomy Musculoskeletal Surgical History: Reports: None, Other (See Below) Social & Family History - Family History Family Medical History: Noncontributory Cardiac: Reports: Hypertension, CT Respiratory: Reports: Asthma Oncologic: Reports: Lung - Tobacco Use Smoking Status *Q: Never Smoker Years of Tobacco use: 25 Packs/Tins Daily: 1 (1 tin per day) Second Hand Smoke Exposure: Yes - Caffeine Use Caffeine Use: Reports: Soda Caffeine Use Comment: Occasional coffee drinker - Recreational Drug Use Recreational Drug Use: No - Living Situation & Occupation Living situation: Reports: Occupation: Employed ED ROS GENERAL - Review of Systems Review Of Systems: See Below (See history of present illness) ED EXAM, GENERAL - Physical Exam Exam: See Below (History of present illness) Course - Vital Signs Last Recorded V/S: Last Vital Signs Temp 36.6 C 12/13/16 15:00 Pulse 98 12/13/16 15:00 Resp 18 12/13/16 15:00 BP 149/80 H 12/13/16 15:00 Pulse Ox 97 12/13/16 15:00 - Orders/Labs/Meds Orders: Active Orders 24 hr Category Date Time Status Ankle Min 3V Rt [CR] Stat Exams 12/13/16 16:14 Taken Labs: Laboratory Tests 12/13/16 12/13/16 12/13/16 Range/Units 15:12 15:12 15:12 WBC 11.22 H (4.0-11.0) K/uL RBC 4.62 (4.50-5.90) M/uL Hgb 14.4 (13.0-17.0) g/dL Hct 41.9 (38.0-50.0) % MCV 90.7 (80.0-98.0) fL MCH 31.2 (27.0-32.0) pg MCHC 34.4 (31.0-37.0) g/dL RDW Std Deviation 44.7 (28.0-62.0) fl RDW Coeff of Jesika 14 (11.0-15.0) % Plt Count 305 (150-400) K/uL MPV 9.40 (7.40-12.00) fL Neut % (Auto) 71.4 (48.0-80.0) % Lymph % (Auto) 15.4 L (16.0-40.0) % Giles % (Auto) 8.3 (0.0-15.0) % Eos % (Auto) 4.5 (0.0-7.0) % Baso % (Auto) 0.4 (0.0-1.5) % Neut # (Auto) 8.0 H (1.4-5.7) K/uL Lymph # (Auto) 1.7 (0.6-2.4) K/uL Giles # (Auto) 0.9 H (0.0-0.8) K/uL Eos # (Auto) 0.5 (0.0-0.7) K/uL Baso # (Auto) 0.1 (0.0-0.1) K/uL Nucleated RBC % 0.0 /100WBC Nucleated RBCs # 0 K/uL ESR 30 H (0-14) mm/hr Uric Acid 6.4 (2.1-7.4) mg/dL C-Reactive Protein 7.51 H (0.0-0.5) mg/dL Meds: Medications Discontinued Medications Generic Name Dose Route Start Last Admin Trade Name Freq PRN Reason Stop Dose Admin Ceftriaxone Sodium 1,000 mg/ 4 mls @ 4 mls/sec 12/13/16 16:37 12/13/16 16:56 Lidocaine HCl IM 12/13/16 16:38 4 mls/sec ONETIME ONE Administration Ketorolac Tromethamine 60 mg 12/13/16 15:03 12/13/16 15:55 Toradol IM 12/13/16 15:04 60 mg ONETIME ONE Administration Departure - Departure Time of Disposition: 17:02 Disposition: Home, Self-Care 01 Condition: Good Clinical Impression: Cellulitis of right lower extremity - Discharge Information Prescriptions: Cephalexin [Keflex] 500 mg PO Q6HR #40 cap traMADol [Ultram] 50 mg PO Q8H PRN #12 tablet PRN Reason: Pain Forms: ED Department Discharge Additional Instructions: The following information is given to patients seen in the emergency department who are being discharged to home. This information is to outline your options for follow-up care. We provide all patients seen in our emergency department with a follow-up referral. The need for follow-up, as well as the timing and circumstances, are variable depending upon the specifics of your emergency department visit. If you don't have a primary care physician on staff, we will provide you with a referral. We always advise you to contact your personal physician following an emergency department visit to inform them of the circumstance of the visit and for follow-up with them and/or the need for any referrals to a consulting specialist. The emergency department will also refer you to a specialist when appropriate. This referral assures that you have the opportunity for follow-up care with a specialist. All of these measure are taken in an effort to provide you with optimal care, which includes your follow-up. Under all circumstances we always encourage you to contact your private physician who remains a resource for coordinating your care. When calling for follow-up care, please make the office aware that this follow-up is from your recent emergency room visit. If for any reason you are refused follow-up, please contact the [facility] Emergency Department at and asked to speak to the emergency department charge nurse. Keflex and tramadol, Tylenol, ibuprofen or Aleve for pain, warm soaks. Follow- up with your regular physician in one to 2 days. [facility] [address] [place] [id number] - My Orders Last 24 Hours: My Active Orders 12/13/16 16:14 Ankle Min 3V Rt [CR] Stat - Assessment/Plan Last 24 Hours: My Active Orders 12/13/16 16:14 Ankle Min 3V Rt [CR] Stat
[2016-12-13] MEDS ORDERED: cefTRIAXone 1,000 MG in Lidocaine 1% 4 ML IM ONE (16:37)
--- NOTE | 2016-12-14 09:53 | CR ---
EXAM DATE: 12/13/16 PATIENT'S AGE: 46 Patient: JANIYA TRAVIS Facility: [place], [place] Site . Site : [id number] Study: XRay Extremity ankle [id number]/19/2017 4:32:48 PM Ordering Physician: Constantino Lopez Final Report: HISTORY: Pain x2 days and swelling. No injury. FINDINGS: Three views of the right ankle demonstrates normal appearance to the soft tissues. The distal fibula, tibia, mortise and talar dome are intact. No fracture line or dislocation is seen. No radiopaque foreign body. IMPRESSION: No bony abnormality within the right ankle. Dictated by Kerry Ellis MD @ 12/13/2016 4:56:29 PM Dictated by: Kerry Ellis MD @ 12/13/2016 16:56:34 (Electronic Signature) Report Signed by Proxy. RIGO
== END 2016-12-13 17:10 | disposition home or self-care (01) ==
LOC: MW.ED 14:38
DX: L03.115 Cellulitis of right lower limb (principal); I10 Essential (primary) hypertension; E78.00 Pure hypercholesterolemia, unspecified; J45.909 Unspecified asthma, uncomplicated; K21.9 Gastro-esophageal reflux disease without esophagitis; E66.9 Obesity, unspecified; Z98.890 Other specified postprocedural states; Z79.82 Long term (current) use of aspirin; Z79.899 Other long term (current) drug therapy; Z68.39 Body mass index [BMI] 39.0-39.9, adult
CPT/HCPCS: 36415; 73610; 84550; 85025; 85652; 86140; 96372; 99283; J0696; J1885; 99284

== ENCOUNTER 2017-01-07 19:42 | Emergency (ER) | payer OTHER ==
[2017-01-07] MEDS ORDERED: Albuterol/Ipratropium 3.0-0.5 MG/3 ML Neb Soln NEB ONE (19:44)
[2017-01-07] MEDS ORDERED: methylPREDNISolone Sodium Succinate 125 MG/2 ML SDV IM ONE (19:46)
--- NOTE | 2017-01-07 19:50 | EDM.PDOC ---
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 Past medical history: As per history of present illness and as reviewed below otherwise noncontributory. Surgical history: As per history of present illness and as reviewed below otherwise noncontributory. Social history: No reported history of drug or alcohol abuse. Family history: As per history of present illness and as reviewed below otherwise noncontributory. Physical exam: HEENT: Atraumatic, normocephalic, pupils reactive, negative for conjunctival pallor or scleral icterus, mucous membranes moist, throat clear, neck supple, nontender, trachea midline. Lungs: Clear to auscultation, breath sounds equal bilaterally, chest nontender. Heart: S1S2, regular, negative for clicks, rubs, or JVD. Abdomen: Soft, nondistended, nontender. Negative for masses or hepatosplenomegaly. Negative for costovertebral tenderness. Pelvis: Stable nontender. Genitourinary: Deferred. Rectal: Deferred. Extremities: Atraumatic, negative for cords or calf pain. Neurovascular unremarkable. Neuro: Awake, alert, oriented. Cranial nerves II through XII unremarkable. Cerebellum unremarkable. Motor and sensory unremarkable throughout. Exam nonfocal. Diagnostics: []Chest 2 views Therapeutics: []DuoNeb Solu-Medrol 125 mg IM DuoNeb Z-Eliazar Medrol Dosepak Impression: []Asthma exacerbation Definitive disposition and diagnosis as appropriate pending reevaluation and review of above. no pain Pain Score (Numeric/FACES): 0 - Related Data Allergies Allergy/AdvReac Type Severity Reaction Status Date / Time No Known Allergies Allergy Verified 01/07/17 19:46 Home Meds: Home Meds Albuterol [Ventolin 2 MG/5 ML] 02/01/16 [History] Aspirin 81 mg PO DAILY 02/01/16 [History] Mometasone/Formoterol [Dulera 200-5 MCG] 2 puff IH BIDRT 02/01/16 [History] Albuterol [Ventolin HFA] 05/06/16 [History] Albuterol [Ventolin HFA] 2 inh INH Q4HR 08/28/16 [History] Albuterol/Ipratropium [DuoNeb 3.0-0.5 MG/3 ML] 1 ampule PO ASDIRECTED 08/28/16 [ History] Montelukast [Singulair] 1 tab PO DAILY 08/28/16 [History] Fluticasone Propionate [Flonase] 0 gm NASBOTH BID bottle 08/29/16 [Rx] Loratadine [Claritin] 10 mg PO DAILY #0 tablet 08/29/16 [Rx] Cephalexin [Keflex] 500 mg PO Q6HR #40 cap 12/13/16 [Rx] Losartan [Cozaar] 100 mg PO DAILY 12/13/16 [History] traMADol [Ultram] 50 mg PO Q8H PRN #12 tablet 12/13/16 [Rx] Past Medical History HEENT History: Reports: Impaired Vision Other HEENT History: Patient reports farsightedness Cardiovascular History: Reports: High Cholesterol, Hypertension Respiratory History: Reports: Asthma. Denies: PE, Sleep Apnea Gastrointestinal History: Reports: Chronic Constipation, GERD, None Genitourinary History: Reports: None, Retention, Urinary Musculoskeletal History: Reports: None Neurological History: Reports: None Psychiatric History: Reports: None Endocrine/Metabolic History: Reports: None, Obesity/BMI 30+ Hematologic History: Reports: None Oncologic (Cancer) History: Reports: None - Infectious Disease History Infectious Disease History: Reports: Chicken Pox, None - Past Surgical History HEENT Surgical History: Reports: Naso-Sinus Surgery, Polypectomy Musculoskeletal Surgical History: Reports: None, Other (See Below) Social & Family History - Family History Family Medical History: Noncontributory Cardiac: Reports: Hypertension, [place] Respiratory: Reports: Asthma Oncologic: Reports: Lung - Tobacco Use Smoking Status *Q: Never Smoker Years of Tobacco use: 25 Packs/Tins Daily: 1 (1 tin per day) Second Hand Smoke Exposure: Yes - Caffeine Use Caffeine Use: Reports: Soda Caffeine Use Comment: Occasional coffee drinker - Recreational Drug Use Recreational Drug Use: No - Living Situation & Occupation Living situation: Reports: Occupation: Employed ED ROS GENERAL - Review of Systems Review Of Systems: ROS reveals no pertinent complaints other than HPI. ED EXAM, GENERAL - Physical Exam Exam: See Below Course - Vital Signs Last Recorded V/S: Last Vital Signs Temp 36.4 C 01/07/17 19:47 Pulse 101 H 01/07/17 19:47 Resp 24 H 01/07/17 19:47 BP 175/94 H 01/07/17 20:04 Pulse Ox 92 L 01/07/17 19:47 - Orders/Labs/Meds Orders: Active Orders 24 hr Category Date Time Status RT Aerosol Therapy [RC] ASDIRECTED Care 01/07/17 19:45 Active Chest 2V [CR] Stat Exams 01/07/17 19:46 Taken Meds: Medications Discontinued Medications Generic Name Dose Route Start Last Admin Trade Name Marcela PRN Reason Stop Dose Admin Albuterol/Ipratropium 3 ml 01/07/17 19:44 01/07/17 19:50 Duoneb 3.0-0.5 Mg/3 Ml NEB 01/07/17 19:45 3 ml ONETIME ONE Administration Methylprednisolone Sodium Succinate 125 mg 01/07/17 19:46 01/07/17 19:50 Solu-Medrol IM 01/07/17 19:47 125 mg ONETIME ONE Administration Departure - Departure Time of Disposition: 20:35 Disposition: Home, Self-Care 01 Condition: Good Clinical Impression: Exacerbation of asthma - Discharge Information Forms: ED Department Discharge Additional Instructions: Medication as prescribed Return if symptoms persist or worsen Follow-up with primary care in 2 weeks, follow-up with specialty care this week as scheduled The following information is given to patients seen in the emergency department who are being discharged to home. This information is to outline your options for follow-up care. We provide all patients seen in our emergency department with a follow-up referral. The need for follow-up, as well as the timing and circumstances, are variable depending upon the specifics of your emergency department visit. If you don't have a primary care physician on staff, we will provide you with a referral. We always advise you to contact your personal physician following an emergency department visit to inform them of the circumstance of the visit and for follow-up with them and/or the need for any referrals to a consulting specialist. The emergency department will also refer you to a specialist when appropriate. This referral assures that you have the opportunity for follow-up care with a specialist. All of these measure are taken in an effort to provide you with optimal care, which includes your follow-up. Under all circumstances we always encourage you to contact your private physician who remains a resource for coordinating your care. When calling for follow-up care, please make the office aware that this follow-up is from your recent emergency room visit. If for any reason you are refused follow-up, please contact the [facility] emergency department at and asked to speak to the emergency department charge nurse. - My Orders Last 24 Hours: My Active Orders 01/07/17 19:45 RT Aerosol Therapy [RC] ASDIRECTED 01/07/17 19:46 Chest 2V [CR] Stat - Assessment/Plan Last 24 Hours: My Active Orders 01/07/17 19:45 RT Aerosol Therapy [RC] ASDIRECTED 01/07/17 19:46 Chest 2V [CR] Stat
[2017-01-07 21:02] VITALS: BP 182/111
--- NOTE | 2017-01-08 13:37 | CR ---
EXAM DATE: 01/07/17 PATIENT'S AGE: 46 Patient: JANIYA TRAVIS Facility: [place], [place] Site . Site : 1970 Study: XRay Chest [id number]/13/[id number] 8:18:31 PM Ordering Physician: Ashtyn Olivarez Final Report: INDICATION: pain, sob TECHNIQUE: Chest 2 views COMPARISON: August 28, 2016. FINDINGS: Cardiovascular and mediastinum: Heart size and vasculature are normal in caliber and appearance. Mediastinum is within normal limits. Lungs and pleural spaces: No focal consolidation. No sign of pleural effusion. No pneumothorax. Bones and soft tissues: No significant findings. IMPRESSION: No acute cardiopulmonary disease. Dictated by Ankur Andre MD @ 01/07/2017 8:59:50 PM Dictated by: Ankur Andre MD @ 01/07/2017 20:59:56 (Electronic Signature) Report Signed by Proxy. [facility]ITAL[facility]adir
== END 2017-01-07 20:53 | disposition home or self-care (01) ==
LOC: MW.ED 19:42
DX: J45.901 Unspecified asthma with (acute) exacerbation (principal); E78.00 Pure hypercholesterolemia, unspecified; I10 Essential (primary) hypertension; K21.9 Gastro-esophageal reflux disease without esophagitis; Z79.82 Long term (current) use of aspirin; Z79.899 Other long term (current) drug therapy; Z98.890 Other specified postprocedural states
CPT/HCPCS: 71020; 96372; 99285; J2930; 99283

== ENCOUNTER 2017-01-22 07:52 | Observation (INO) | payer OTHER, BC ==
[2017-01-22] MEDS ORDERED: Albuterol/Ipratropium 3.0-0.5 MG/3 ML Neb Soln NEB ONE ×2 (07:59→11:24)
[2017-01-22] MEDS ORDERED: Sodium Chloride 0.9% 1,000 ML IV SCH (08:00)
[2017-01-22] MEDS: methylPREDNISolone Sodium Succinate 125 MG/2 ML SDV IVPUSH ONE ×3 (08:26→09:11)
--- NOTE | 2017-01-22 08:41 | EDM.PDOC ---
ED HPI GENERAL MEDICAL PROBLEM - General Chief Complaint: Respiratory Problem Stated Complaint: HARD TIME BREATHING Time Seen by Provider: 01/22/17 07:58 - History of Present Illness INITIAL COMMENTS - FREE TEXT/NARRATIVE: HISTORY AND PHYSICAL: History of present illness: Patient 46-year-old male with medical history significant for asthma presents with concern of shortness of breath and chest congestion over last 24 hours she has used his nebulizer with no improvement he denies fever chills nausea vomiting or other complaints Review of systems: As per history of present illness and below otherwise all systems reviewed and negative. Past medical history: As per history of present illness and as reviewed below otherwise noncontributory. Surgical history: As per history of present illness and as reviewed below otherwise noncontributory. Social history: No reported history of drug or alcohol abuse. Family history: As per history of present illness and as reviewed below otherwise noncontributory. Physical exam: HEENT: Atraumatic, normocephalic, pupils reactive, negative for conjunctival pallor or scleral icterus, mucous membranes moist, throat clear, neck supple, nontender, trachea midline. Lungs: Coarse bilaterally with scattered inspiratory and expiratory wheezing noted no crackles no rhonchi, breath sounds equal bilaterally, chest nontender. Heart: S1S2, regular, negative for clicks, rubs, or JVD. Abdomen: Soft, nondistended, nontender. Negative for masses or hepatosplenomegaly. Negative for costovertebral tenderness. Pelvis: Stable nontender. Genitourinary: Deferred. Rectal: Deferred. Extremities: Atraumatic, negative for cords or calf pain. Neurovascular unremarkable. Neuro: Awake, alert, oriented. Cranial nerves II through XII unremarkable. Cerebellum unremarkable. Motor and sensory unremarkable throughout. Exam nonfocal. Diagnostics: CBC CMP chest x-ray EKG Therapeutics: Albuterol ipratropium nebulizer Solu-Medrol 125 mg IV Impression: #1 acute asthmatic exacerbation Definitive disposition and diagnosis as appropriate pending reevaluation and review of above. - Related Data Allergies Allergy/AdvReac Type Severity Reaction Status Date / Time No Known Allergies Allergy Verified 01/22/17 07:56 Home Meds: Home Meds Mometasone/Formoterol [Dulera 200-5 MCG] 2 puff IH BIDRT 02/01/16 [History] Albuterol [Ventolin HFA] 2 inh INH Q4HR 08/28/16 [History] Albuterol/Ipratropium [DuoNeb 3.0-0.5 MG/3 ML] 1 ampule PO ASDIRECTED 08/28/16 [ History] Montelukast [Singulair] 1 tab PO DAILY 08/28/16 [History] Fluticasone Propionate [Flonase] 0 gm NASBOTH BID bottle 08/29/16 [Rx] Loratadine [Claritin] 10 mg PO DAILY #0 tablet 08/29/16 [Rx] Cephalexin [Keflex] 500 mg PO Q6HR #40 cap 12/13/16 [Rx] Losartan [Cozaar] 100 mg PO DAILY 12/13/16 [History] traMADol [Ultram] 50 mg PO Q8H PRN #12 tablet 12/13/16 [Rx] Past Medical History HEENT History: Reports: Impaired Vision Other HEENT History: Patient reports farsightedness Cardiovascular History: Reports: High Cholesterol, Hypertension Respiratory History: Reports: Asthma Gastrointestinal History: Reports: Chronic Constipation, GERD, None Genitourinary History: Reports: None, Retention, Urinary Musculoskeletal History: Reports: None Neurological History: Reports: None Psychiatric History: Reports: None Endocrine/Metabolic History: Reports: None, Obesity/BMI 30+ Hematologic History: Reports: None Immunologic History: Reports: None Oncologic (Cancer) History: Reports: None Dermatologic History: Reports: None - Infectious Disease History Infectious Disease History: Reports: Chicken Pox - Past Surgical History HEENT Surgical History: Reports: Naso-Sinus Surgery, Polypectomy Musculoskeletal Surgical History: Reports: None, Other (See Below) Social & Family History - Family History Family Medical History: Noncontributory Cardiac: Reports: Hypertension, [place] Respiratory: Reports: Asthma Oncologic: Reports: Lung - Tobacco Use Smoking Status *Q: Never Smoker Years of Tobacco use: 25 Packs/Tins Daily: 1 (1 tin per day) Second Hand Smoke Exposure: Yes - Caffeine Use Caffeine Use: Reports: Tea Caffeine Use Comment: Occasional coffee drinker - Recreational Drug Use Recreational Drug Use: No - Living Situation & Occupation Living situation: Reports: Occupation: Employed ED ROS GENERAL - Review of Systems Review Of Systems: ROS reveals no pertinent complaints other than HPI. ED EXAM, GENERAL - Physical Exam Exam: See Below (See dictation) Course - Vital Signs Last Recorded V/S: Last Vital Signs Temp 36.0 C 01/22/17 07:54 Pulse 115 H 01/22/17 07:54 Resp 22 H 01/22/17 07:54 BP 169/92 H 01/22/17 07:54 Pulse Ox 92 L 01/22/17 07:54 - Orders/Labs/Meds Orders: Active Orders 24 hr Category Date Time Status EKG Documentation Completion [RC] STAT Care 01/22/17 07:58 Active RT Aerosol Therapy [RC] ASDIRECTED Care 01/22/17 07:59 Active Sodium Chloride 0.9% [Normal Saline] 1,000 ml Med 01/22/17 08:00 Active IV STAT Medication Orders Sodium Chloride (Normal Saline) 1,000 mls @ 125 mls/hr IV STAT DOMINIQUE Last Admin: 01/22/17 08:28 Dose: 125 mls/hr Labs: Laboratory Tests 01/22/17 01/22/17 01/22/17 Range/Units 08:22 08:22 08:22 WBC 7.09 (4.0-11.0) K/uL RBC 4.64 (4.50-5.90) M/uL Hgb 14.3 (13.0-17.0) g/dL Hct 41.4 (38.0-50.0) % MCV 89.2 (80.0-98.0) fL MCH 30.8 (27.0-32.0) pg MCHC 34.5 (31.0-37.0) g/dL RDW Std Deviation 42.8 (28.0-62.0) fl RDW Coeff of Jesika 13 (11.0-15.0) % Plt Count 294 (150-400) K/uL MPV 8.90 (7.40-12.00) fL Neut % (Auto) 58.8 (48.0-80.0) % Lymph % (Auto) 22.6 (16.0-40.0) % Edgar % (Auto) 7.9 (0.0-15.0) % Eos % (Auto) 10.3 H (0.0-7.0) % Baso % (Auto) 0.4 (0.0-1.5) % Neut # (Auto) 4.2 (1.4-5.7) K/uL Lymph # (Auto) 1.6 (0.6-2.4) K/uL Edgar # (Auto) 0.6 (0.0-0.8) K/uL Eos # (Auto) 0.7 (0.0-0.7) K/uL Baso # (Auto) 0.0 (0.0-0.1) K/uL Nucleated RBC % 0.0 /100WBC Nucleated RBCs # 0 K/uL Sodium 141 (136-146) mmol/L Potassium 4.0 (3.5-5.1) mmol/L Chloride 109 (98-110) mmol/L Carbon Dioxide 22 (21-31) mmol/L BUN 15 (6.0-23.0) mg/dL Creatinine 1.2 (0.6-1.5) mg/dL Est Cr Clr Drug Dosing 81.05 mL/min Estimated GFR (MDRD) > 60.0 ml/min Glucose 93 (60-110) mg/dL Calcium 10.1 (8.8-10.8) mg/dL Total Bilirubin 1.0 (0.1-1.5) mg/dL AST 44 H (5-40) IU/L ALT 68 H (8-54) IU/L Alkaline Phosphatase 126 (40-150) B-Natriuretic Peptide 27 (<100) PG/ML Total Protein 7.2 (6.0-8.0) g/dL Albumin 4.1 (3.5-5.0) g/dL Globulin 3.1 (2.0-3.5) g/dL Albumin/Globulin Ratio 1.3 (1.3-2.8) Urine Color Urine Appearance Urine pH (5.0-8.0) Ur Specific [place] (1.001-1.035) Urine Protein (NEGATIVE) mg/dL Urine Glucose (UA) (NEGATIVE) mg/dL Urine Ketones (NEGATIVE) mg/dL Urine Occult Blood (NEGATIVE) Urine Nitrite (NEGATIVE) Urine Bilirubin (NEGATIVE) Urine Urobilinogen (<2.0) EU/dL Ur Leukocyte Esterase (NEGATIVE) Urine RBC (0-2/HPF) Urine WBC (0-5/HPF) Ur Epithelial Cells (NONE-FEW) Urine Bacteria (NEGATIVE) 01/22/17 Range/Units 10:22 WBC (4.0-11.0) K/uL RBC (4.50-5.90) M/uL Hgb (13.0-17.0) g/dL Hct (38.0-50.0) % MCV (80.0-98.0) fL MCH (27.0-32.0) pg MCHC (31.0-37.0) g/dL RDW Std Deviation (28.0-62.0) fl RDW Coeff of Jesika (11.0-15.0) % Plt Count (150-400) K/uL MPV (7.40-12.00) fL Neut % (Auto) (48.0-80.0) % Lymph % (Auto) (16.0-40.0) % Edgar % (Auto) (0.0-15.0) % Eos % (Auto) (0.0-7.0) % Baso % (Auto) (0.0-1.5) % Neut # (Auto) (1.4-5.7) K/uL Lymph # (Auto) (0.6-2.4) K/uL Edgar # (Auto) (0.0-0.8) K/uL Eos # (Auto) (0.0-0.7) K/uL Baso # (Auto) (0.0-0.1) K/uL Nucleated RBC % /100WBC Nucleated RBCs # K/uL Sodium (136-146) mmol/L Potassium (3.5-5.1) mmol/L Chloride (98-110) mmol/L Carbon Dioxide (21-31) mmol/L BUN (6.0-23.0) mg/dL Creatinine (0.6-1.5) mg/dL Est Cr Clr Drug Dosing mL/min Estimated GFR (MDRD) ml/min Glucose (60-110) mg/dL Calcium (8.8-10.8) mg/dL Total Bilirubin (0.1-1.5) mg/dL AST (5-40) IU/L ALT (8-54) IU/L Alkaline Phosphatase (40-150) B-Natriuretic Peptide (<100) PG/ML Total Protein (6.0-8.0) g/dL Albumin (3.5-5.0) g/dL Globulin (2.0-3.5) g/dL Albumin/Globulin Ratio (1.3-2.8) Urine Color YELLOW Urine Appearance CLEAR Urine pH 5.5 (5.0-8.0) Ur Specific [place] 1.020 (1.001-1.035) Urine Protein NEGATIVE (NEGATIVE) mg/dL Urine Glucose (UA) NEGATIVE (NEGATIVE) mg/dL Urine Ketones NEGATIVE (NEGATIVE) mg/dL Urine Occult Blood NEGATIVE (NEGATIVE) Urine Nitrite NEGATIVE (NEGATIVE) Urine Bilirubin NEGATIVE (NEGATIVE) Urine Urobilinogen 0.2 (<2.0) EU/dL Ur Leukocyte Esterase NEGATIVE (NEGATIVE) Urine RBC NONE SEEN (0-2/HPF) Urine WBC 0-1 (0-5/HPF) Ur Epithelial Cells RARE (NONE-FEW) Urine Bacteria RARE (NEGATIVE) Meds: Medications Generic Name Dose Route Start Last Admin Trade Name Freq PRN Reason Stop Dose Admin Sodium Chloride 1,000 mls @ 125 mls/hr 01/22/17 08:00 01/22/17 08:28 Normal Saline IV 125 mls/hr STAT DOMINIQUE Administration Discontinued Medications Generic Name Dose Route Start Last Admin Trade Name Freq PRN Reason Stop Dose Admin Albuterol/Ipratropium 3 ml 01/22/17 07:59 01/22/17 08:07 Duoneb 3.0-0.5 Mg/3 Ml NEB 01/22/17 08:00 3 ml ONETIME ONE Administration Methylprednisolone Sodium Succinate 125 mg 01/22/17 07:59 01/22/17 09:11 Solu-Medrol IVPUSH 01/22/17 08:00 Not Given ONETIME ONE Departure - Departure Time of Disposition: 10:43 Disposition: Home, Self-Care 01 Condition: Good Clinical Impression: Acute asthma - Discharge Information Referrals: Brock Gtz MD [Primary Care Provider] - Forms: ED Department Discharge Additional Instructions: The following information is given to patients seen in the emergency department who are being discharged to home. This information is to outline your options for follow-up care. We provide all patients seen in our emergency department with a follow-up referral. The need for follow-up, as well as the timing and circumstances, are variable depending upon the specifics of your emergency department visit. If you don't have a primary care physician on staff, we will provide you with a referral. We always advise you to contact your personal physician following an emergency department visit to inform them of the circumstance of the visit and for follow-up with them and/or the need for any referrals to a consulting specialist. The emergency department will also refer you to a specialist when appropriate. This referral assures that you have the opportunity for followup care with a specialist. All of these measure are taken in an effort to provide you with optimal care, which includes your followup. Under all circumstances we always encourage you to contact your private physician who remains a resource for coordinating your care. When calling for followup care, please make the office aware that this follow-up is from your recent emergency room visit. If for any reason you are refused follow-up, please contact the [facility] emergency department at and asked to speak to the emergency department charge nurse. [facility] [address] [place] [id number] Medrol albuterol as prescribed follow-up primary medical doctor and/or clinic above is discussed return as needed as discussed - My Orders Last 24 Hours: My Active Orders 01/22/17 07:58 EKG Documentation Completion [RC] STAT 01/22/17 07:59 RT Aerosol Therapy [RC] ASDIRECTED 01/22/17 08:00 Sodium Chloride 0.9% [Normal Saline] 1,000 ml IV STAT - Assessment/Plan Last 24 Hours: My Active Orders 01/22/17 07:58 EKG Documentation Completion [RC] STAT 01/22/17 07:59 RT Aerosol Therapy [RC] ASDIRECTED 01/22/17 08:00 Sodium Chloride 0.9% [Normal Saline] 1,000 ml IV STAT
--- NOTE | 2017-01-22 08:43 | CR ---
EXAMINATION: Portable chest radiograph. HISTORY: Shortness of breath. FINDINGS: The trachea is midline. The cardiomediastinal silhouette is within normal limits. No pulmonary infilt rates, effusions or pneumothorax. Osseous structures appear unremarkable. IMPRESSION: No acute cardiopulmonary process.
[2017-01-22 09:21] LABS: CHLORIDE,CL 109 mmol/L (98-110); SODIUM,NA 141 mmol/L (136-146)
[2017-01-22] MEDS ORDERED: Albuterol/Ipratropium 3.0-0.5 MG/3 ML Neb Soln NEB PRN (14:44)
[2017-01-22] MEDS: Albuterol/Ipratropium 3.0-0.5 MG/3 ML Neb Soln NEB SCH ×2 (14:54→17:31)
[2017-01-22] MEDS: methylPREDNISolone Sodium Succinate 125 MG/2 ML SDV IVPUSH SCH ×2 (15:10→21:41)
--- NOTE | 2017-01-22 17:58 | PCM.HP ---
H&P History of Present Illness - History of Present Illness Initial Comments - Free Text/Narative: 46 yo with pmh of asthma who presents with one day history of shortness of breath, wheezing and cough. He denies any fevers, chills, or chest pain. - Related Data Allergies/Adverse Reactions: Allergies Allergy/AdvReac Type Severity Reaction Status Date / Time No Known Allergies Allergy Verified 01/22/17 07:56 Home Medications: Home Meds Mometasone/Formoterol [Dulera 200-5 MCG] 2 puff IH BIDRT 02/01/16 [History] Albuterol [Ventolin HFA] 2 inh INH Q4HR 08/28/16 [History] Albuterol/Ipratropium [DuoNeb 3.0-0.5 MG/3 ML] 1 ampule PO ASDIRECTED 08/28/16 [ History] Montelukast [Singulair] 1 tab PO DAILY 08/28/16 [History] Fluticasone Propionate [Flonase] 0 gm NASBOTH BID bottle 08/29/16 [Rx] Loratadine [Claritin] 10 mg PO DAILY #0 tablet 08/29/16 [Rx] Cephalexin [Keflex] 500 mg PO Q6HR #40 cap 12/13/16 [Rx] Losartan [Cozaar] 100 mg PO DAILY 12/13/16 [History] traMADol [Ultram] 50 mg PO Q8H PRN #12 tablet 12/13/16 [Rx] Past Medical History HEENT History: Reports: Impaired Vision Other HEENT History: Patient reports farsightedness Cardiovascular History: Reports: Hypertension Respiratory History: Reports: Asthma Gastrointestinal History: Reports: None Genitourinary History: Reports: None, Retention, Urinary Musculoskeletal History: Reports: None, Gout Neurological History: Reports: None Psychiatric History: Reports: None Endocrine/Metabolic History: Reports: None, Obesity/BMI 30+ Hematologic History: Reports: None Immunologic History: Reports: None Oncologic (Cancer) History: Reports: None Dermatologic History: Reports: None - Infectious Disease History Infectious Disease History: Reports: Chicken Pox - Past Surgical History HEENT Surgical History: Reports: Naso-Sinus Surgery, Polypectomy Musculoskeletal Surgical History: Reports: None, Other (See Below) Social & Family History - Family History Family Medical History: Noncontributory Cardiac: Reports: Hypertension, [place] Respiratory: Reports: Asthma, Other (See Below) Other Respiratory Family Hisory: Mother had lung CA. She was a heavy smoker. Oncologic: Reports: Lung - Tobacco Use Smoking Status *Q: Never Smoker Years of Tobacco use: 25 Packs/Tins Daily: 1 (1 tin per day) Second Hand Smoke Exposure: No - Caffeine Use Caffeine Use: Reports: Tea Caffeine Use Comment: Occasional coffee drinker - Alcohol Use Days Per Week of Alcohol Use: 0 Number of Drinks Per Day: 0 Total Drinks Per Week: 0 - Recreational Drug Use Recreational Drug Use: No - Living Situation & Occupation Living situation: Reports: Occupation: Employed H&P Review of Systems - Review of Systems: Review Of Systems: ROS reveals no pertinent complaints other than HPI. Exam - Exam Exam: See Below - Vital Signs Vital Signs: Last Vital Signs Temp 36.4 C 01/22/17 11:23 Pulse 92 01/22/17 11:45 Resp 22 H 01/22/17 11:45 BP 133/72 01/22/17 11:45 Pulse Ox 94 L 01/22/17 11:45 Weight: 127.459 kg - Exam General: Alert, Oriented, 4 HEENT: Mucosa Moist & [place] Neck: Supple Lungs: Wheezing Cardiovascular: Regular Rate, Regular Rhythm GI/Abdominal Exam: Normal Bowel Sounds, Soft, Non-Tender, No Organomegaly, No Distention, No Mass, Pelvis Stable Extremities: Pedal Edema (mild) Skin: Warm, Dry, Intact - Patient Data Result Diagrams: 01/22/17 08:22 01/22/17 08:22 *Q Meaningful Use (ADM) - VTE *Q VTE Criteria *Q: - Stroke *Q Stroke Criteria *Q: - AMI *Q AMI Criteria *Q: Problem List Initiated/Reviewed/Updated: Yes Orders Last 24hrs: Active Orders 24 hr Category Date Time Status Antiembolic Devices [RC] PER UNIT ROUTINE Care 01/22/17 17:55 Ordered Intake and Output [RC] QSHIFT Care 01/22/17 17:55 Ordered Oxygen Therapy [RC] PRN Care 01/22/17 17:55 Ordered RT Aerosol Therapy [RC] ASDIRECTED Care 01/22/17 11:24 Active RT Aerosol Therapy [RC] ASDIRECTED Care 01/22/17 14:45 Active Up ad [place]aya [RC] ASDIRECTED Care 01/22/17 17:55 Ordered VTE/DVT Education [RC] PER UNIT ROUTINE Care 01/22/17 17:55 Ordered Vital Signs [RC] Q4H Care 01/22/17 17:55 Ordered Regular Diet [DIET] Diet 01/22/17 Dinner Active BASIC METABOLIC PANEL,BMP [CHEM] AM Lab 01/23/17 05:11 Ordered CBC WITH AUTO DIFF [HEME] AM Lab 01/23/17 05:11 Ordered Albuterol/Ipratropium [DuoNeb 3.0-0.5 MG/3 ML] Med 01/22/17 14:44 Active 3 ml NEB Q2H PRN Albuterol/Ipratropium [DuoNeb 3.0-0.5 MG/3 ML] Med 01/22/17 14:45 Active 3 ml NEB Q6HRRT Enoxaparin [Lovenox] Med 01/23/17 09:00 Ordered 40 mg SUBCUT DAILY Loratadine [Claritin] Med 01/23/17 09:00 Active 10 mg PO DAILY Losartan [Cozaar] Med 01/23/17 09:00 Active 100 mg PO DAILY Montelukast [Singulair] Med 01/23/17 09:00 Active 10 mg PO DAILY Patient's Own Medication [Ptom] Med 01/22/17 21:00 Active 1 each INH BIDRT methylPREDNISolone Sod Succ [Solu-MEDROL] Med 01/22/17 15:00 Active 125 mg IVPUSH Q6H Sequential Compression Device [OM.PC] Per Unit Routine Oth 01/22/17 17:55 Ordered Resuscitation Status Routine Resus Stat 01/22/17 17:55 Ordered Medication Orders Albuterol/Ipratropium (Duoneb 3.0-0.5 Mg/3 Ml) 3 ml NEB Q6HRRT [facility] Last Admin: 01/22/17 17:31 Dose: 3 ml Admin: 01/22/17 14:54 Dose: 3 ml Albuterol/Ipratropium (Duoneb 3.0-0.5 Mg/3 Ml) 3 ml NEB Q2H PRN PRN Reason: Wheezing Sodium Chloride (Normal Saline) 1,000 mls @ 125 mls/hr IV STAT [facility] Last Admin: 01/22/17 08:28 Dose: 125 mls/hr Loratadine (Claritin) 10 mg PO DAILY [facility] Losartan Potassium (Cozaar) 100 mg PO DAILY [facility] Methylprednisolone Sodium Succinate (Solu-Medrol) 125 mg IVPUSH Q6H [facility] Last Admin: 01/22/17 15:10 Dose: 125 mg Montelukast Sodium (Singulair) 10 mg PO DAILY [facility] Patient Own Medication (Ptom) 1 each INH BIDRT [facility] Assessment/Plan Comment:: 46 yo male admitted with asthma exacerbation. We will treat with solumedrol and duonebs
[2017-01-22] MEDS: Patient's Own Medication 1 Each INH SCH (20:47)
[2017-01-22] MEDS ORDERED: Losartan 50 MG Tab PO SCH (21:00)
[2017-01-23] MEDS: Cephalexin 500 MG Cap PO SCH ×2 (00:10→05:55)
[2017-01-23] MEDS: Albuterol/Ipratropium 3.0-0.5 MG/3 ML Neb Soln NEB SCH ×2 (00:11→05:43)
[2017-01-23] MEDS: methylPREDNISolone Sodium Succinate 125 MG/2 ML SDV IVPUSH SCH (02:46)
[2017-01-23] MEDS: Patient's Own Medication 1 Each INH SCH (05:46)
[2017-01-23 06:23] VITALS: BP 148/92
[2017-01-23 06:24] LABS: CHLORIDE,CL 110 mmol/L (98-110); SODIUM,NA 141 mmol/L (136-146)
--- NOTE | 2017-01-23 06:45 | PCM.DCSUM1 ---
Discharge Summary - Discharge Data Discharge Date: 01/23/17 Discharge Disposition: Home, Self-Care 01 Condition: Good - Patient Summary/Data Hospital Course: Admission diagnosis Acute asthma exacerbation Hospital course: 46 yo with pmh of asthma who presented with one day history of shortness of breath, wheezing and cough. On admision wheezing was noted on lung exam but no labor breath. He was satting 92% on room air. WBC was 7,090 and CXR showed no acute cadiopulmonary process. He was treated with solumedrol and duonebs and monitored overnight. This morning he is requesting discharge. He was discharge home on oral prednison 40mg daily for five days. - Patient Instructions Diet: Regular Diet as Tolerated - Discharge Plan Prescriptions/Med Rec: Prednisone [IMW: predniSONE] 40 mg PO WITHBREAKFAST #10 tab Home Medications: Home Meds Mometasone/Formoterol [Dulera 200-5 MCG] 2 puff IH BIDRT 02/01/16 [History] Albuterol [Ventolin HFA] 2 inh INH Q4HR 08/28/16 [History] Albuterol/Ipratropium [DuoNeb 3.0-0.5 MG/3 ML] 1 ampule PO ASDIRECTED 08/28/16 [ History] Montelukast [Singulair] 1 tab PO DAILY 08/28/16 [History] Fluticasone Propionate [Flonase] 0 gm NASBOTH BID bottle 08/29/16 [Rx] Loratadine [Claritin] 10 mg PO DAILY #0 tablet 08/29/16 [Rx] Cephalexin [Keflex] 500 mg PO Q6HR #40 cap 12/13/16 [Rx] Losartan [Cozaar] 100 mg PO DAILY 12/13/16 [History] traMADol [Ultram] 50 mg PO Q8H PRN #12 tablet 12/13/16 [Rx] Prednisone [IMW: predniSONE] 40 mg PO WITHBREAKFAST #10 tab 01/23/17 [Rx] Referrals: Brock Gtz MD [Primary Care Provider] - - Patient Data Vitals - Most Recent: Last Vital Signs Temp 36.9 C 01/23/17 04:00 Pulse 101 H 01/23/17 04:00 Resp 18 01/23/17 04:00 BP 148/92 H 01/23/17 04:00 Pulse Ox 93 L 01/23/17 04:00 Weight - Most Recent: 127.459 kg I&O - Last 24 hours: Intake & Output 01/22/17 01/22/17 01/23/17 14:59 22:59 06:59 Intake Total 1000 500 700 Output Total 900 1450 Balance 1000 -400 -750 Lab Results - Last 24 hrs: Laboratory Results - last 24 hr 01/23/17 01/23/17 Range/Units 05:43 05:43 WBC 16.49 H (4.0-11.0) K/uL RBC 4.68 (4.50-5.90) M/uL Hgb 14.0 (13.0-17.0) g/dL Hct 41.3 (38.0-50.0) % MCV 88.2 (80.0-98.0) fL MCH 29.9 (27.0-32.0) pg MCHC 33.9 (31.0-37.0) g/dL RDW Std Deviation 41.8 (28.0-62.0) fl RDW Coeff of Jesika 13 (11.0-15.0) % Plt Count 373 (150-400) K/uL MPV 9.00 (7.40-12.00) fL Neut % (Auto) 94.4 H (48.0-80.0) % Lymph % (Auto) 4.4 L (16.0-40.0) % [place] % (Auto) 1.2 (0.0-15.0) % Eos % (Auto) 0.0 (0.0-7.0) % Baso % (Auto) 0.0 (0.0-1.5) % Neut # (Auto) 15.6 H (1.4-5.7) K/uL Lymph # (Auto) 0.7 (0.6-2.4) K/uL [place] # (Auto) 0.2 (0.0-0.8) K/uL Eos # (Auto) 0.0 (0.0-0.7) K/uL Baso # (Auto) 0.0 (0.0-0.1) K/uL Nucleated RBC % 0.0 /100WBC Nucleated RBCs # 0 K/uL Sodium 141 (136-146) mmol/L Potassium 4.0 (3.5-5.1) mmol/L Chloride 110 (98-110) mmol/L Carbon Dioxide 19 L (21-31) mmol/L BUN 19 (6.0-23.0) mg/dL Creatinine 1.1 (0.6-1.5) mg/dL Est Cr Clr Drug Dosing 85.72 mL/min Estimated GFR (MDRD) > 60.0 ml/min Glucose 148 H (60-110) mg/dL Calcium 10.2 (8.8-10.8) mg/dL Med Orders - Current: Current Medications Albuterol/Ipratropium (Duoneb 3.0-0.5 Mg/3 Ml) 3 ml NEB Q6HRRT [facility] Last Admin: 01/23/17 05:43 Dose: 3 ml Albuterol/Ipratropium (Duoneb 3.0-0.5 Mg/3 Ml) 3 ml NEB Q2H PRN PRN Reason: Wheezing Cephalexin (Keflex) 500 mg PO Q6H [facility] Last Admin: 01/23/17 05:55 Dose: 500 mg Enoxaparin Sodium (Lovenox) 40 mg SUBCUT DAILY [facility] Sodium Chloride (Normal Saline) 1,000 mls @ 125 mls/hr IV STAT [facility] Last Admin: 01/22/17 08:28 Dose: 125 mls/hr Loratadine (Claritin) 10 mg PO DAILY [facility] Losartan Potassium (Cozaar) 100 mg PO BEDTIME [facility] Last Admin: 01/22/17 22:20 Dose: 100 mg Methylprednisolone Sodium Succinate (Solu-Medrol) 125 mg IVPUSH Q6H [facility] Last Admin: 01/23/17 02:46 Dose: 125 mg Montelukast Sodium (Singulair) 10 mg PO DAILY [facility] Patient Own Medication (Ptom) 1 each INH BIDRT [facility] Last Admin: 01/23/17 05:46 Dose: 1 each Discontinued Medications Albuterol/Ipratropium (Duoneb 3.0-0.5 Mg/3 Ml) 3 ml NEB ONETIME ONE Stop: 01/22/17 08:00 Last Admin: 01/22/17 08:07 Dose: 3 ml Albuterol/Ipratropium (Duoneb 3.0-0.5 Mg/3 Ml) 3 ml NEB ONETIME ONE Stop: 01/22/17 11:25 Last Admin: 01/22/17 11:31 Dose: 3 ml Losartan Potassium (Cozaar) 100 mg PO DAILY [facility] Methylprednisolone Sodium Succinate (Solu-Medrol) 125 mg IVPUSH ONETIME ONE Stop: 01/22/17 08:00 Last Admin: 01/22/17 09:11 Dose: Not Given *Q Meaningful Use (DIS) - VTE *Q VTE Criteria *Q: - Stroke *Q Stroke Criteria *Q: - AMI *Q AMI Criteria *Q:
[2017-01-23] MEDS ORDERED: Montelukast 10 MG Tab PO SCH (09:00)
[2017-01-23] MEDS ORDERED: Losartan 50 MG Tab PO SCH (09:00)
[2017-01-23] MEDS ORDERED: Enoxaparin 40 MG/0.4 ML Syringe SUBCUT SCH (09:00)
[2017-01-23] MEDS ORDERED: Loratadine 10 MG Tab PO SCH (09:00)
== END 2017-01-23 07:31 | disposition home or self-care (01) ==
LOC: MW.ED 07:52 → MW.MS 11:21
PROVIDERS: ADMIT Internal Medicine; ATTEND Internal Medicine
DX: J45.901 Unspecified asthma with (acute) exacerbation (principal); I10 Essential (primary) hypertension; E66.9 Obesity, unspecified; Z68.30 Body mass index [BMI] 30.0-30.9, adult; Z98.890 Other specified postprocedural states; Z79.51 Long term (current) use of inhaled steroids; Z79.899 Other long term (current) drug therapy; Z79.2 Long term (current) use of antibiotics
CPT/HCPCS: 36415; 71010; 80048; 80053; 81001; 83880; 85025; 93005; 94640; 96361; 96374; 96376; 99285; A9270; G0378; J2930; J7040; 99283

== ENCOUNTER 2017-04-17 19:20 | Emergency (ER) | payer BC, OTHER ==
[2017-04-17] MEDS ORDERED: Albuterol/Ipratropium 3.0-0.5 MG/3 ML Neb Soln NEB ONE (19:30)
[2017-04-17] MEDS ORDERED: Dexamethasone 10 MG/ML SDV IVPUSH ONE (19:45)
[2017-04-17] MEDS ORDERED: Sodium Chloride 0.9% 10 ML Syringe FLUSH PRN (19:45)
[2017-04-17] MEDS ORDERED: Sodium Chloride 0.9% 2.5 ML Syringe FLUSH PRN (19:45)
--- NOTE | 2017-04-17 19:46 | EDM.PDOC ---
ED HPI GENERAL MEDICAL PROBLEM - General Chief Complaint: Respiratory Problem Stated Complaint: ASTHMA/TROUBLE BREATHING Time Seen by Provider: 04/17/17 19:46 Source of Information: Reports: Patient, Family History Limitations: Reports: No Limitations - History of Present Illness INITIAL COMMENTS - FREE TEXT/NARRATIVE: HISTORY AND PHYSICAL: []47-year-old male presenting with shortness of breath this has been present for the last week History of Present Illness: []Patient has history of asthma reactive airway Hypertension Peripheral edema Patient's states that he has been sick every 6 weeks since moving here from [place], [place]. Review of Systems: As per history of present illness and below otherwise all systems reviewed and negative. Past medical history: As per history of present illness and as reviewed below otherwise noncontributory. Surgical history: As per history of present illness and as reviewed below otherwise noncontributory. Social history: No reported history of drug or alcohol abuse. Family history: As per history of present illness and as reviewed below otherwise noncontributory. Physical exam: Alert and oriented male speaking in sentences of 4 words with breathiness. is in room and answers many questions for him. He was last in urgent care 6 weeks ago and treated for similar incident. He has a nebulizer machine at home for which he takes a DuoNeb. HEENT: Atraumatic, normocehpalic, pupils reactive, negative for conjunctival pallor or scleral icterus, mucous membranes moist, throat clear, neck supple, nontender, trachea midline. Wheezing present Lungs: Wheezing present bilaterally, chest non tender. Heart: S1S2, regular, negative for clicks, rubs, or JVD. Abdomen: Soft, nondistended, nontender. Negative for masses or hepatossplenmegaly. Negative for costovertebral tenderness. Pelvis: Stable nontender. Genitourinary: Deferred. Rectal: Deferred Extremities: Atraumatic, negative for cords or calf pain. Neurovascular unremarkable. Neuro: Awake, alert, oriented. Cranial nerves II through XII unremarkable. Cerebellum unremarkable. Motor and sensory unremarkable throughout. Exam nonfocal. Diagnostics: [CBC CMP and BMP chest x-ray EKG ] Therapeutics: []Dexamethasone IV DuoNeb Impression: [Wheezing reactive airway] Plan: []Discharged to home Prescription for dexamethasone given Follow-up with your primary care provider tomorrow Definitive disposition and diagnosis as appropriate pending reevaluation and review of above. Onset: Sudden Duration: Chronic Location: Reports: Chest Severity: Moderate - Related Data Allergies Allergy/AdvReac Type Severity Reaction Status Date / Time No Known Allergies Allergy Verified 04/17/17 19:33 Home Meds: Home Meds Mometasone/Formoterol [Dulera 200-5 MCG] 2 puff IH BIDRT 02/01/16 [History] Albuterol [Ventolin HFA] 2 inh INH Q4HR 08/28/16 [History] Albuterol/Ipratropium [DuoNeb 3.0-0.5 MG/3 ML] 1 ampule PO ASDIRECTED 08/28/16 [ History] Fluticasone Propionate [Flonase] 0 gm NASBOTH BID bottle 08/29/16 [Rx] Cephalexin [Keflex] 500 mg PO Q6HR #40 cap 12/13/16 [Rx] Losartan [Cozaar] 100 mg PO DAILY 12/13/16 [History] Dexamethasone 4 mg PO DAILY #5 tablet 04/17/17 [Rx] Past Medical History HEENT History: Reports: Impaired Vision Other HEENT History: Patient reports farsightedness Cardiovascular History: Reports: Hypertension Respiratory History: Reports: Asthma Gastrointestinal History: Reports: None Genitourinary History: Reports: None, Retention, Urinary Musculoskeletal History: Reports: None, Gout Neurological History: Reports: None Psychiatric History: Reports: None Endocrine/Metabolic History: Reports: None, Obesity/BMI 30+ Hematologic History: Reports: None Immunologic History: Reports: None Oncologic (Cancer) History: Reports: None Dermatologic History: Reports: None - Infectious Disease History Infectious Disease History: Reports: Chicken Pox - Past Surgical History HEENT Surgical History: Reports: Naso-Sinus Surgery, Polypectomy Musculoskeletal Surgical History: Reports: None, Other (See Below) Social & Family History - Family History Family Medical History: Noncontributory Cardiac: Reports: Hypertension, [place] Respiratory: Reports: Asthma, Other (See Below) Other Respiratory Family Hisory: Mother had lung CA. She was a heavy smoker. Oncologic: Reports: Lung - Tobacco Use Smoking Status *Q: Never Smoker Years of Tobacco use: 25 Packs/Tins Daily: 1 (1 tin per day) Second Hand Smoke Exposure: No - Caffeine Use Caffeine Use: Reports: Tea Caffeine Use Comment: Occasional coffee drinker - Alcohol Use Days Per Week of Alcohol Use: 0 Number of Drinks Per Day: 0 Total Drinks Per Week: 0 - Recreational Drug Use Recreational Drug Use: No - Living Situation & Occupation Living situation: Reports: Occupation: Employed ED ROS GENERAL - Review of Systems Review Of Systems: ROS reveals no pertinent complaints other than HPI. ED EXAM, GENERAL - Physical Exam Exam: See Below (See dictation) Course - Vital Signs Last Recorded V/S: Last Vital Signs Temp 36.7 C 04/17/17 19:25 Pulse 118 H 04/17/17 19:25 Resp 24 H 04/17/17 19:25 BP 164/100 H 04/17/17 19:25 Pulse Ox 92 L 04/17/17 19:25 - Orders/Labs/Meds Orders: Active Orders 24 hr Category Date Time Status EKG Documentation Completion [RC] STAT Care 04/17/17 19:45 Active RT Aerosol Therapy [RC] ASDIRECTED Care 04/17/17 19:30 Active Chest 2V [CR] Stat Exams 04/17/17 19:45 Taken Sodium Chloride 0.9% [Saline Flush] Med 04/17/17 19:45 Active 10 ml FLUSH ASDIRECTED PRN Sodium Chloride 0.9% [Saline Flush] Med 04/17/17 19:45 Active 2.5 ml FLUSH ASDIRECTED PRN Saline Lock Insert [OM.PC] Stat Oth 04/17/17 19:45 Ordered Medication Orders Sodium Chloride (Saline Flush) 10 ml FLUSH ASDIRECTED PRN PRN Reason: Keep Vein Open Last Admin: 04/17/17 20:01 Dose: 10 ml Sodium Chloride (Saline Flush) 2.5 ml FLUSH ASDIRECTED PRN PRN Reason: Keep Vein Open Last Admin: 04/17/17 20:01 Dose: 2.5 ml Labs: Laboratory Tests 04/17/17 04/17/17 Range/Units 20:02 20:02 WBC 10.33 (4.0-11.0) K/uL RBC 5.09 (4.50-5.90) M/uL Hgb 15.3 (13.0-17.0) g/dL Hct 44.9 (38.0-50.0) % MCV 88.2 (80.0-98.0) fL MCH 30.1 (27.0-32.0) pg MCHC 34.1 (31.0-37.0) g/dL RDW Std Deviation 45.3 (28.0-62.0) fl RDW Coeff of Jesika 14 (11.0-15.0) % Plt Count 315 (150-400) K/uL MPV 9.70 (7.40-12.00) fL Neut % (Auto) 58.5 (48.0-80.0) % Lymph % (Auto) 19.9 (16.0-40.0) % [place] % (Auto) 7.2 (0.0-15.0) % Eos % (Auto) 13.4 H (0.0-7.0) % Baso % (Auto) 1.0 (0.0-1.5) % Neut # (Auto) 6.1 H (1.4-5.7) K/uL Lymph # (Auto) 2.1 (0.6-2.4) K/uL [place] # (Auto) 0.7 (0.0-0.8) K/uL Eos # (Auto) 1.4 H (0.0-0.7) K/uL Baso # (Auto) 0.1 (0.0-0.1) K/uL Nucleated RBC % 0.0 /100WBC Nucleated RBCs # 0 K/uL Sodium 140 (136-146) mmol/L Potassium 4.1 (3.5-5.1) mmol/L Chloride 109 (98-110) mmol/L Carbon Dioxide 19 L (21-31) mmol/L BUN 19 (6.0-23.0) mg/dL Creatinine 1.2 (0.6-1.5) mg/dL Est Cr Clr Drug Dosing 80.18 mL/min Estimated GFR (MDRD) > 60.0 ml/min Glucose 98 (60-110) mg/dL Calcium 10.0 (8.8-10.8) mg/dL Total Bilirubin 0.8 (0.1-1.5) mg/dL AST 24 (5-40) IU/L ALT 40 (8-54) IU/L Alkaline Phosphatase 104 (40-150) Total Protein 7.5 (6.0-8.0) g/dL Albumin 4.3 (3.5-5.0) g/dL Globulin 3.2 (2.0-3.5) g/dL Albumin/Globulin Ratio 1.3 (1.3-2.8) Meds: Medications Generic Name Dose Route Start Last Admin Trade Name Freq PRN Reason Stop Dose Admin Sodium Chloride 10 ml 04/17/17 19:45 04/17/17 20:01 Saline Flush FLUSH 10 ml ASDIRECTED PRN Administration Keep Vein Open Sodium Chloride 2.5 ml 04/17/17 19:45 04/17/17 20:01 Saline Flush FLUSH 2.5 ml ASDIRECTED PRN Administration Keep Vein Open Discontinued Medications Generic Name Dose Route Start Last Admin Trade Name Freq PRN Reason Stop Dose Admin Albuterol/Ipratropium 3 ml 04/17/17 19:30 04/17/17 20:01 Duoneb 3.0-0.5 Mg/3 Ml NEB 04/17/17 19:31 3 ml ONETIME ONE Administration Dexamethasone 10 mg 04/17/17 19:45 04/17/17 20:01 Dexamethasone IVPUSH 04/17/17 19:46 10 mg ONETIME ONE Administration Departure - Departure Time of Disposition: 21:09 Disposition: Home, Self-Care 01 Condition: Good Clinical Impression: Exacerbation of asthma Qualifiers: Asthma severity: moderate Asthma persistence: unspecified Qualified Code(s): J45.901 - Unspecified asthma with (acute) exacerbation - Discharge Information Prescriptions: Dexamethasone 4 mg PO DAILY #5 tablet Referrals: Brock Gtz MD [Primary Care Provider] - Forms: ED Department Discharge Additional Instructions: The following information is given to patients seen in the emergency department who are being discharged to home. This information is to outline your options for follow-up care. We provide all patients seen in our emergency department with a follow-up referral. The need for follow-up, as well as the timing and circumstances, are variable depending upon the specifics of your emergency department visit. If you don't have a primary care physician on staff, we will provide you with a referral. We always advise you to contact your personal physician following an emergency department visit to inform them of the circumstance of the visit and for follow-up with them and/or the need for any referrals to a consulting specialist. The emergency department will also refer you to a specialist when appropriate. This referral assures that you have the opportunity for followup care with a specialist. All of these measure are taken in an effort to provide you with optimal care, which includes your followup. Under all circumstances we always encourage you to contact your private physician who remains a resource for coordinating your care. When calling for followup care, please make the office aware that this follow-up is from your recent emergency room visit. If for any reason you are refused follow-up, please contact the [facility] emergency department at and asked to speak to the emergency department charge nurse. Follow-up with your primary care provider tomorrow prescription and has been given for dexamethasone 4 mg daily 5 days - My Orders Last 24 Hours: My Active Orders 04/17/17 19:45 EKG Documentation Completion [RC] STAT Chest 2V [CR] Stat Sodium Chloride 0.9% [Saline Flush] 10 ml FLUSH ASDIRECTED PRN Sodium Chloride 0.9% [Saline Flush] 2.5 ml FLUSH ASDIRECTED PRN Saline Lock Insert [OM.PC] Stat - Assessment/Plan Last 24 Hours: My Active Orders 04/17/17 19:45 EKG Documentation Completion [RC] STAT Chest 2V [CR] Stat Sodium Chloride 0.9% [Saline Flush] 10 ml FLUSH ASDIRECTED PRN Sodium Chloride 0.9% [Saline Flush] 2.5 ml FLUSH ASDIRECTED PRN Saline Lock Insert [OM.PC] Stat
[2017-04-17 20:32] LABS: CHLORIDE,CL 109 mmol/L (98-110); SODIUM,NA 140 mmol/L (136-146)
[2017-04-18 00:06] VITALS: BP 156/90
--- NOTE | 2017-04-18 10:34 | CR ---
EXAM DATE: 04/17/17 PATIENT'S AGE: 47 Patient: JANIYA TRAVIS Facility: [place], [place] Site . Site : 1970 Study: XRay Chest [id number] 8:40:44 PM Ordering Physician: Doctor Brizuela Final Report: INDICATION: shortness of breath for 2 days, history of asthma TECHNIQUE: Chest radiograph 2 views COMPARISON: 01/22/17 FINDINGS: Cardiovascular and mediastinum: The cardiac silhouette is normal in appearance and size. Mediastinum is within normal limits. Lungs and pleural spaces: Both lungs are unremarkable in appearance. No sign of pleural effusion. No pneumothorax is seen. Bones and soft tissues: No significant findings. IMPRESSION: 1. No acute cardiopulmonary disease seen. Dictated by: Alex Lynch MD @ 04/17/2017 20:58:03 (Electronic Signature) Report Signed by Proxy. RIGO
== END 2017-04-17 21:25 | disposition home or self-care (01) ==
LOC: MW.ED 19:20
DX: J45.901 Unspecified asthma with (acute) exacerbation (principal); I10 Essential (primary) hypertension; Z79.899 Other long term (current) drug therapy
CPT/HCPCS: 71020; 80053; 85025; 93005; 96374; 99285; J1100

== ENCOUNTER 2017-05-22 19:07 | Inpatient (IN) | payer OTHER ==
[2017-05-22] MEDS ORDERED: Albuterol/Ipratropium 3.0-0.5 MG/3 ML Neb Soln NEB ONE (19:15)
--- NOTE | 2017-05-22 19:18 | EDM.PDOC ---
ED HPI GENERAL MEDICAL PROBLEM - General Chief Complaint: Respiratory Problem Stated Complaint: SOB Time Seen by Provider: 05/22/17 19:15 Source of Information: Reports: Patient History Limitations: Reports: No Limitations - History of Present Illness INITIAL COMMENTS - FREE TEXT/NARRATIVE: HISTORY AND PHYSICAL: History of present illness: Patient is a 47-year-old male who presents to the emergency room with complaints of cough 2 weeks. States as of recent he has had increased shortness of breath and decided to come to the emergency room. He does have a history of asthma she has a rescue inhaler, and has been using frequently. Complains of some left-sided rib pain when coughing. Denies any fever, chills, chest pain, abdominal pain, nausea, vomiting or diarrhea. Denies any history of tobacco use. Has not received the [id number] influenza vaccine Review of systems: As per history of present illness and below otherwise all systems reviewed and negative. Past medical history: As per history of present illness and as reviewed below otherwise noncontributory. Surgical history: As per history of present illness and as reviewed below otherwise noncontributory. Social history: No reported history of drug or alcohol abuse. Family history: As per history of present illness and as reviewed below otherwise noncontributory. Physical exam: Gen.: Well-developed and well-nourished 47-year-old male. Alert and oriented. Nontoxic appearing. HEENT: Atraumatic, normocephalic, pupils reactive, negative for conjunctival pallor or scleral icterus, mucous membranes moist, throat clear, neck supple, nontender, trachea midline. Lungs: Poor air exchange with inspiratory and expiratory wheezing to the posterior bases bilaterally, chest nontender. Dry nonproductive cough noted. Heart: S1S2, regular rate and rhythm without murmur Abdomen: Soft, obese, nondistended, nontender. Negative for masses or hepatosplenomegaly. Negative for costovertebral tenderness. Pelvis: Stable nontender. Genitourinary: Deferred. Rectal: Deferred. Extremities: Atraumatic, moves all extremities per self and has full range of motion without deficits or difficulty. Neurovascular unremarkable. Neuro: Awake, alert, oriented. Cranial nerves II through XII unremarkable. Cerebellum unremarkable. Motor and sensory unremarkable throughout. Exam nonfocal. Oxygen saturation is 91-92% on room air. Patient is agreeable for her routine lab work and x-ray. 2020- CBC, CMP are normal. Influenza A is positive. Patient's oxygen saturation remains 90% on room air, after DuoNeb. An ambulating O2 sat 90% on room air. Dr. Zuñiga was consulted on this case. We will admit this patient for observation for influenza A with hypoxemia. No antibiotics have been started at this time as the chest x-ray does not show any consolidation or bacterial pneumonia (Dr. Zuñiga is agreeable) Diagnostics: CBC, CMP, blood cultures, chest x-ray Therapeutics: DuoNeb, IV Medrol, IV fluid Impression: Influenza A with hypoxemia History of asthma Plan: 1. Observation admission Definitive disposition and diagnosis as appropriate pending reevaluation and review of above. Duration: Week(s): throat Pain Score (Numeric/FACES): 8 - Related Data Allergies Allergy/AdvReac Type Severity Reaction Status Date / Time No Known Allergies Allergy Verified 04/17/17 19:33 Home Meds: Home Meds Albuterol [Ventolin HFA] 2 inh INH Q4HR 08/28/16 [History] Albuterol/Ipratropium [DuoNeb 3.0-0.5 MG/3 ML] 1 ampule PO ASDIRECTED 08/28/16 [ History] Losartan [Cozaar] 100 mg PO DAILY 12/13/16 [History] Past Medical History HEENT History: Reports: Impaired Vision Other HEENT History: Patient reports farsightedness Cardiovascular History: Reports: Hypertension Respiratory History: Reports: Asthma Gastrointestinal History: Reports: None Genitourinary History: Reports: None, Retention, Urinary Musculoskeletal History: Reports: None, Gout Neurological History: Reports: None Psychiatric History: Reports: None Endocrine/Metabolic History: Reports: None, Obesity/BMI 30+ Hematologic History: Reports: None Immunologic History: Reports: None Oncologic (Cancer) History: Reports: None Dermatologic History: Reports: None - Infectious Disease History Infectious Disease History: Reports: Chicken Pox - Past Surgical History HEENT Surgical History: Reports: Naso-Sinus Surgery, Polypectomy Musculoskeletal Surgical History: Reports: None, Other (See Below) Social & Family History - Family History Family Medical History: Noncontributory Cardiac: Reports: Hypertension, [place] Respiratory: Reports: Asthma, Other (See Below) Other Respiratory Family Hisory: Mother had lung CA. She was a heavy smoker. Oncologic: Reports: Lung - Tobacco Use Smoking Status *Q: Current Every Day Smoker Years of Tobacco use: 20 Packs/Tins Daily: 1 Second Hand Smoke Exposure: No - Caffeine Use Caffeine Use: Reports: Tea Caffeine Use Comment: Occasional coffee drinker - Alcohol Use Days Per Week of Alcohol Use: 0 Number of Drinks Per Day: 0 Total Drinks Per Week: 0 - Recreational Drug Use Recreational Drug Use: No - Living Situation & Occupation Living situation: Reports: Occupation: Employed ED ROS GENERAL - Review of Systems Review Of Systems: ROS reveals no pertinent complaints other than HPI. ED EXAM, GENERAL - Physical Exam Exam: See Below (See dictation) Course - Vital Signs Last Recorded V/S: Last Vital Signs Temp 100.7 F H 05/22/17 19:11 Pulse 128 H 05/22/17 19:11 Resp 22 H 05/22/17 19:11 BP 186/93 H 05/22/17 19:11 Pulse Ox 90 L 05/22/17 19:21 - Orders/Labs/Meds Orders: Active Orders 24 hr Category Date Time Status RT Aerosol Therapy [RC] ASDIRECTED Care 05/22/17 19:15 Active Chest 2V [CR] Stat Exams 05/22/17 19:15 Ordered CULTURE BLOOD [BC] Stat Lab 05/22/17 19:40 Received CULTURE BLOOD [BC] Stat Lab 05/22/17 19:55 Received CULTURE STREP A CONFIRMATION [RM] Stat Lab 05/22/17 19:40 Results STREP SCRN A RAPID W CULT CONF [RM] Stat Lab 05/22/17 19:40 Results Sodium Chloride 0.9% [Normal Saline] 1,000 ml Med 05/22/17 20:19 Ordered IV STAT Blood Culture x2 Reflex Set [OM.PC] Stat Oth 05/22/17 19:16 Ordered Medication Orders Sodium Chloride (Normal Saline) 1,000 mls @ 999 mls/hr IV STAT ONE Stop: 05/22/17 21:19 Labs: Laboratory Tests 05/22/17 05/22/17 Range/Units 19:40 19:40 WBC 7.82 (4.0-11.0) K/uL RBC 4.37 L (4.50-5.90) M/uL Hgb 13.1 (13.0-17.0) g/dL Hct 38.8 (38.0-50.0) % MCV 88.8 (80.0-98.0) fL MCH 30.0 (27.0-32.0) pg MCHC 33.8 (31.0-37.0) g/dL RDW Std Deviation 43.9 (28.0-62.0) fl RDW Coeff of Jesika 14 (11.0-15.0) % Plt Count 262 (150-400) K/uL MPV 9.10 (7.40-12.00) fL Add Manual Diff YES Neutrophils % (Manual) 64 (48.0-80.0) % Band Neutrophils % 9 % Lymphocytes % (Manual) 21 (16.0-40.0) % Monocytes % (Manual) 3 (0.0-15.0) % Eosinophils % (Manual) 1 (0.0-7.0) % Basophils % (Manual) 2 H (0.0-1.5) % Nucleated RBC % 0.0 /100WBC Absolute Seg Neuts 5.0 (1.4-5.7) Band Neutrophils # 0.7 Lymphocytes # (Manual) 1.6 (0.6-2.4) Monocytes # (Manual) 0.2 (0.0-0.8) Eosinophils # (Manual) 0.1 (0.0-0.7) Basophils # (Manual) 0.2 H (0.0-0.1) Nucleated RBCs # 0 K/uL Sodium 141 (136-146) mmol/L Potassium 3.8 (3.5-5.1) mmol/L Chloride 109 (98-110) mmol/L Carbon Dioxide 20 L (21-31) mmol/L BUN 15 (6.0-23.0) mg/dL Creatinine 1.1 (0.6-1.5) mg/dL Est Cr Clr Drug Dosing 87.47 mL/min Estimated GFR (MDRD) > 60.0 ml/min Glucose 132 H (60-110) mg/dL Calcium 8.8 (8.8-10.8) mg/dL Total Bilirubin 0.6 (0.1-1.5) mg/dL AST 20 (5-40) IU/L ALT 49 (8-54) IU/L Alkaline Phosphatase 107 (40-150) Total Protein 6.9 (6.0-8.0) g/dL Albumin 3.9 (3.5-5.0) g/dL Globulin 3.0 (2.0-3.5) g/dL Albumin/Globulin Ratio 1.3 (1.3-2.8) Meds: Medications Generic Name Dose Route Start Last Admin Trade Name Marcela PRN Reason Stop Dose Admin Sodium Chloride 1,000 mls @ 999 mls/hr 05/22/17 20:19 Normal Saline IV 05/22/17 21:19 STAT ONE Discontinued Medications Generic Name Dose Route Start Last Admin Trade Name Marcela PRN Reason Stop Dose Admin Acetaminophen 650 mg 05/22/17 20:16 Tylenol PO 05/22/17 20:17 NOW ONE Albuterol/Ipratropium 3 ml 05/22/17 19:15 05/22/17 19:20 Duoneb 3.0-0.5 Mg/3 Ml NEB 05/22/17 19:16 3 ml ONETIME ONE Administration Methylprednisolone Sodium Succinate 125 mg 05/22/17 20:09 Solu-Medrol IVPUSH 05/22/17 20:10 ONETIME ONE Departure - Departure Time of Disposition: 20:26 Disposition: Home, Self-Care 01 Clinical Impression: Influenza A, Hypoxemia - Discharge Information Referrals: Brock Gtz MD [Primary Care Provider] - Forms: ED Department Discharge - My Orders Last 24 Hours: My Active Orders 05/22/17 19:15 RT Aerosol Therapy [RC] ASDIRECTED Chest 2V [CR] Stat 05/22/17 19:16 Blood Culture x2 Reflex Set [OM.PC] Stat 05/22/17 19:40 CULTURE BLOOD [BC] Stat CULTURE STREP A CONFIRMATION [RM] Stat STREP SCRN A RAPID W CULT CONF [RM] Stat 05/22/17 19:55 CULTURE BLOOD [BC] Stat 05/22/17 20:19 Sodium Chloride 0.9% [Normal Saline] 1,000 ml IV STAT - Assessment/Plan Last 24 Hours: My Active Orders 05/22/17 19:15 RT Aerosol Therapy [RC] ASDIRECTED Chest 2V [CR] Stat 05/22/17 19:16 Blood Culture x2 Reflex Set [OM.PC] Stat 05/22/17 19:40 CULTURE BLOOD [BC] Stat CULTURE STREP A CONFIRMATION [RM] Stat STREP SCRN A RAPID W CULT CONF [RM] Stat 05/22/17 19:55 CULTURE BLOOD [BC] Stat 05/22/17 20:19 Sodium Chloride 0.9% [Normal Saline] 1,000 ml IV STAT
[2017-05-22] MEDS ORDERED: methylPREDNISolone Sodium Succinate 125 MG/2 ML SDV IVPUSH ONE (20:09)
[2017-05-22 20:13] LABS: CHLORIDE,CL 109 mmol/L (98-110); SODIUM,NA 141 mmol/L (136-146)
[2017-05-22] MEDS ORDERED: Acetaminophen 325 MG Tab PO ONE (20:16)
[2017-05-22] MEDS ORDERED: Sodium Chloride 0.9% 1,000 ML IV ONE (20:19)
--- NOTE | 2017-05-22 20:46 | PCM.HP ---
H&P History of Present Illness - General Date of Service: 05/22/17 Admit Problem/Dx: Admission Diagnosis/Problem Admission Diagnosis/Problem Influenza due to influenza A virus Source of Information: Patient, Family History Limitations: Reports: No Limitations - History of Present Illness Initial Comments - Free Text/Narative: 47-year-old male presenting to the emergency department with chief complaint of shortness of breath and cough 2 weeks with past medical history of moderate asthma. Patient presented to the emergency department with his with chief complaint of increasing shortness of breath and cough 2 weeks. His states that he began to feel ill around and has not completely improved since then. He has gotten better then worse but over the last 2 weeks his breathing has become more impaired with associated cough and wheezing. Patient has a history of asthma for which he has a daily inhaler as well as a rescue inhaler. He also has a home nebulizer. He does have some left-sided rib pain associated with coughing. Patient denies any chest pain, palpitations, syncopal episodes, focal neurologic deficits, fever, chills, nausea, vomiting, or diarrhea. Patient did not receive the influenza vaccine this year. He denies history of smoking. In the emergency department CBC and CMP were unremarkable. Rapid strep was negative. Patient was positive for influenza A. Chest x-ray was unremarkable. Patient was admitted to observation for influenza A with dyspnea. throat Pain Score (Numeric/FACES): 8 - Related Data Allergies/Adverse Reactions: Allergies Allergy/AdvReac Type Severity Reaction Status Date / Time No Known Allergies Allergy Verified 04/17/17 19:33 Home Medications: Home Meds Albuterol [Ventolin HFA] 2 inh INH Q4HR 08/28/16 [History] Albuterol/Ipratropium [DuoNeb 3.0-0.5 MG/3 ML] 1 ampule PO ASDIRECTED 08/28/16 [ History] Losartan [Cozaar] 100 mg PO DAILY 12/13/16 [History] Past Medical History HEENT History: Reports: Impaired Vision Other HEENT History: Patient reports farsightedness Cardiovascular History: Reports: Hypertension Respiratory History: Reports: Asthma Gastrointestinal History: Reports: None Genitourinary History: Reports: None, Retention, Urinary Musculoskeletal History: Reports: None, Gout Neurological History: Reports: None Psychiatric History: Reports: None Endocrine/Metabolic History: Reports: None, Obesity/BMI 30+ Hematologic History: Reports: None Immunologic History: Reports: None Oncologic (Cancer) History: Reports: None Dermatologic History: Reports: None - Infectious Disease History Infectious Disease History: Reports: Chicken Pox - Past Surgical History HEENT Surgical History: Reports: Naso-Sinus Surgery, Polypectomy Musculoskeletal Surgical History: Reports: None, Other (See Below) Social & Family History - Family History Family Medical History: Noncontributory Cardiac: Reports: Hypertension, [place] Respiratory: Reports: Asthma, Other (See Below) Other Respiratory Family Hisory: Mother had lung CA. She was a heavy smoker. Oncologic: Reports: Lung - Tobacco Use Smoking Status *Q: Current Every Day Smoker Years of Tobacco use: 20 Packs/Tins Daily: 1 Second Hand Smoke Exposure: No - Caffeine Use Caffeine Use: Reports: Tea Caffeine Use Comment: Occasional coffee drinker - Alcohol Use Days Per Week of Alcohol Use: 0 Number of Drinks Per Day: 0 Total Drinks Per Week: 0 - Recreational Drug Use Recreational Drug Use: No - Living Situation & Occupation Living situation: Reports: Occupation: Employed H&P Review of Systems - Review of Systems: Review Of Systems: See Below General: Reports: Malaise. Denies: Fever, Chills, Weakness, Fatigue, Diaphoresis HEENT: Reports: Sore Throat. Denies: Dysphasia, Headaches Pulmonary: Reports: Shortness of Breath, Wheezing, Pleuritic Chest Pain, Cough. Denies: Sputum Cardiovascular: Denies: Chest Pain, Palpitations, Edema Gastrointestinal: Denies: Abdominal Pain, Black Stool, Bloody Stool, Nausea, Vomiting Genitourinary: Denies: Dysuria, Hematuria Musculoskeletal: Denies: Neck Pain, Leg Pain Skin: Denies: Cyanosis Psychiatric: Denies: Confusion Neurological: Denies: Confusion, Dizziness, Headache Exam - Exam Exam: See Below - Vital Signs Vital Signs: Last Vital Signs Temp 100.7 F H 05/22/17 19:11 Pulse 128 H 05/22/17 19:11 Resp 22 H 05/22/17 19:11 BP 186/93 H 05/22/17 19:11 Pulse Ox 90 L 05/22/17 19:21 Weight: 285 kg - Exam Quality Assessment: Supplemental Oxygen, DVT Prophylaxis General: Alert, Oriented, Cooperative HEENT: Conjunctiva Clear, EACs Clear, EOMI, Hearing Intact, Mucosa Moist & [place] , Nares Patent, Normal Nasal Septum, Posterior Pharynx Clear, PERRLA Neck: Supple, Trachea Midline, 2 Lungs: Normal Respiratory Effort, Decreased Breath Sounds, Wheezing Cardiovascular: Regular Rhythm, Normal S1, Normal S2, Tachycardia GI/Abdominal Exam: Normal Bowel Sounds, Soft, Non-Tender, No Organomegaly, No Distention Back Exam: Normal Inspection Extremities: Normal Inspection, Non-Tender, No Pedal Edema, Normal Capillary Refill Peripheral Pulses: 2+: Radial (L), Radial (R), Posterior Tibial (L), Posterior Tibial (R), Dorsalis Pedis (L), Dorsalis Pedis (R) Skin: Warm, Dry, Intact Neurological: Cranial Nerves Intact Neuro Extensive - Mental Status: Alert, Oriented x3, Normal Mood/Affect, Normal Cognition Neuro Extensive - Motor, Sensory, Reflexes: CN II-XII Intact Psychiatric: Alert, Normal Affect, Normal Mood - Patient Data Lab Results Last 24 hrs: Laboratory Results - last 24 hr 05/22/17 05/22/17 Range/Units 19:40 19:40 WBC 7.82 (4.0-11.0) K/uL RBC 4.37 L (4.50-5.90) M/uL Hgb 13.1 (13.0-17.0) g/dL Hct 38.8 (38.0-50.0) % MCV 88.8 (80.0-98.0) fL MCH 30.0 (27.0-32.0) pg MCHC 33.8 (31.0-37.0) g/dL RDW Std Deviation 43.9 (28.0-62.0) fl RDW Coeff of Jesika 14 (11.0-15.0) % Plt Count 262 (150-400) K/uL MPV 9.10 (7.40-12.00) fL Add Manual Diff YES Neutrophils % (Manual) 64 (48.0-80.0) % Band Neutrophils % 9 % Lymphocytes % (Manual) 21 (16.0-40.0) % Monocytes % (Manual) 3 (0.0-15.0) % Eosinophils % (Manual) 1 (0.0-7.0) % Basophils % (Manual) 2 H (0.0-1.5) % Nucleated RBC % 0.0 /100WBC Absolute Seg Neuts 5.0 (1.4-5.7) Band Neutrophils # 0.7 Lymphocytes # (Manual) 1.6 (0.6-2.4) Monocytes # (Manual) 0.2 (0.0-0.8) Eosinophils # (Manual) 0.1 (0.0-0.7) Basophils # (Manual) 0.2 H (0.0-0.1) Nucleated RBCs # 0 K/uL Sodium 141 (136-146) mmol/L Potassium 3.8 (3.5-5.1) mmol/L Chloride 109 (98-110) mmol/L Carbon Dioxide 20 L (21-31) mmol/L BUN 15 (6.0-23.0) mg/dL Creatinine 1.1 (0.6-1.5) mg/dL Est Cr Clr Drug Dosing 87.47 mL/min Estimated GFR (MDRD) > 60.0 ml/min Glucose 132 H (60-110) mg/dL Calcium 8.8 (8.8-10.8) mg/dL Total Bilirubin 0.6 (0.1-1.5) mg/dL AST 20 (5-40) IU/L ALT 49 (8-54) IU/L Alkaline Phosphatase 107 (40-150) Total Protein 6.9 (6.0-8.0) g/dL Albumin 3.9 (3.5-5.0) g/dL Globulin 3.0 (2.0-3.5) g/dL Albumin/Globulin Ratio 1.3 (1.3-2.8) Result Diagrams: 05/22/17 19:40 05/22/17 19:40 Adam Results Last 24 hrs: Microbiology 05/22/17 19:30 Influenza Type A Antigen Screen - Final Nasopharyngeal Swab Positive Influenza A Ag Influenza Type B Antigen Screen - Final NEGATIVE INFLUENZA B VIRUS AG 05/22/17 19:40 Group A Streptococcus Rapid Screen - Final Throat NEGATIVE STREP A SCREEN *Q Meaningful Use (ADM) - VTE *Q VTE Criteria *Q: - Stroke *Q Stroke Criteria *Q: - AMI *Q AMI Criteria *Q: - Problem List (1) Moderate persistent asthma SNOMED Code(s): 861815622 ICD Code: J45.40 - MODERATE PERSISTENT ASTHMA, UNCOMPLICATED Status: Chronic Priority: High Current Visit: Yes Qualifiers: Asthma complication type: uncomplicated Qualified Code(s): J45.40 - Moderate persistent asthma, uncomplicated (2) Influenza A SNOMED Code(s): 788797708 ICD Code: J10.1 - FLU DUE TO OTH IDENT INFLUENZA VIRUS W OTH RESP MANIFEST Status: Acute Priority: High Current Visit: Yes (3) HTN (hypertension) SNOMED Code(s): 05818223 Status: Chronic Priority: Low Current Visit: Yes Qualifiers: Hypertension type: essential hypertension Qualified Code(s): I10 - Essential (primary) hypertension Problem List Initiated/Reviewed/Updated: Yes Orders Last 24hrs: Active Orders 24 hr Category Date Time Status Admission Status [Patient Status] [ADT] Stat ADT 05/22/17 20:27 Active RT Aerosol Therapy [RC] ASDIRECTED Care 05/22/17 19:15 Active Chest 2V [CR] Stat Exams 05/22/17 19:15 Taken CULTURE BLOOD [BC] Stat Lab 05/22/17 19:40 Received CULTURE BLOOD [BC] Stat Lab 05/22/17 19:55 Received CULTURE STREP A CONFIRMATION [RM] Stat Lab 05/22/17 19:40 Results STREP SCRN A RAPID W CULT CONF [RM] Stat Lab 05/22/17 19:40 Results Sodium Chloride 0.9% [Normal Saline] 1,000 ml Med 05/22/17 20:19 Active IV STAT Blood Culture x2 Reflex Set [OM.PC] Stat Oth 05/22/17 19:16 Ordered Medication Orders Sodium Chloride (Normal Saline) 1,000 mls @ 999 mls/hr IV STAT ONE Stop: 05/22/17 21:19 Last Admin: 05/22/17 20:39 Dose: 999 mls/hr Assessment/Plan Comment:: 47-year-old male admitted influenza A with past medical history of moderate persistent asthma and hypertension. Influenza A: We'll treat with Tamiflu 75 mg by mouth daily 5 days Moderate persistent asthma: Currently exacerbated by influenza. Will treat with DuoNeb nebs and Solu-Medrol. Hypertension: Currently stable we'll resume home meds. VTE proph: Lovenox, SCD Dispo: 1-2 days
[2017-05-22] MEDS ORDERED: Acetaminophen 325 MG Tab PO PRN (21:14)
[2017-05-22] MEDS ORDERED: Ondansetron 4 MG Tab.DIS PO PRN (21:14)
[2017-05-22] MEDS: Oseltamivir 75 MG Cap PO SCH (21:59)
[2017-05-22] MEDS: Enoxaparin 40 MG/0.4 ML Syringe SUBCUT SCH (22:00)
[2017-05-22] MEDS: Albuterol/Ipratropium 3.0-0.5 MG/3 ML Neb Soln NEB SCH (23:22)
[2017-05-23 05:51] LABS: CHLORIDE,CL 107 mmol/L (98-110); SODIUM,NA 140 mmol/L (136-146)
[2017-05-23] MEDS: Albuterol/Ipratropium 3.0-0.5 MG/3 ML Neb Soln NEB SCH ×5 (06:48→22:00)
[2017-05-23] MEDS ORDERED: methylPREDNISolone Sodium Succinate 125 MG/2 ML SDV IVPUSH SCH (09:00)
[2017-05-23] MEDS: Oseltamivir 75 MG Cap PO SCH ×2 (09:21→20:39)
[2017-05-23] MEDS ORDERED: Albuterol 6.7 GM Inhaler INH PRN (09:41)
[2017-05-23] MEDS ORDERED: Ketorolac 30 MG/ML SDV IVPUSH ONE (09:45)
--- NOTE | 2017-05-23 10:00 | PCM.PN ---
- General Info Date of Service: 05/23/17 Admission Dx/Problem (Free Text): Admission Diagnosis/Problem Admission Diagnosis/Problem Influenza due to influenza A virus Subjective Update: Patient currently on 3L O2. Still complaining of sob, cough and pleuritic chest pain. Functional Status: Reports: Tolerating Diet, Ambulating, Urinating - Review of Systems General: Reports: Malaise HEENT: Reports: No Symptoms Pulmonary: Reports: Shortness of Breath, Pleuritic Chest Pain, Cough Cardiovascular: Reports: No Symptoms Gastrointestinal: Reports: No Symptoms Genitourinary: Reports: No Symptoms Musculoskeletal: Reports: No Symptoms Skin: Reports: No Symptoms Neurological: Reports: No Symptoms Psychiatric: Reports: No Symptoms - Patient Data Vitals - Most Recent: Last Vital Signs Temp 36.3 C 05/23/17 04:00 Pulse 108 H 05/23/17 04:00 Resp 22 H 05/23/17 04:00 BP 158/92 H 05/23/17 04:00 Pulse Ox 94 L 05/23/17 04:00 Weight - Most Recent: 285 kg I&O - Last 24 Hours: Intake & Output 05/22/17 05/23/17 05/23/17 22:59 06:59 14:59 Intake Total 700 Output Total 1000 Balance -300 Lab Results Last 24 Hours: Laboratory Results - last 24 hr 05/23/17 05/23/17 Range/Units 04:46 04:46 WBC 6.93 (4.0-11.0) K/uL RBC 4.64 (4.50-5.90) M/uL Hgb 13.8 (13.0-17.0) g/dL Hct 41.2 (38.0-50.0) % MCV 88.8 (80.0-98.0) fL MCH 29.7 (27.0-32.0) pg MCHC 33.5 (31.0-37.0) g/dL RDW Std Deviation 44.2 (28.0-62.0) fl RDW Coeff of Jesika 14 (11.0-15.0) % Plt Count 335 (150-400) K/uL MPV 9.30 (7.40-12.00) fL Neut % (Auto) 93.0 H (48.0-80.0) % Lymph % (Auto) 4.2 L (16.0-40.0) % [place] % (Auto) 2.6 (0.0-15.0) % Eos % (Auto) 0.1 (0.0-7.0) % Baso % (Auto) 0.1 (0.0-1.5) % Neut # (Auto) 6.4 H (1.4-5.7) K/uL Lymph # (Auto) 0.3 L (0.6-2.4) K/uL [place] # (Auto) 0.2 (0.0-0.8) K/uL Eos # (Auto) 0.0 (0.0-0.7) K/uL Baso # (Auto) 0.0 (0.0-0.1) K/uL Nucleated RBC % 0.0 /100WBC Nucleated RBCs # 0 K/uL Sodium 140 (136-146) mmol/L Potassium 4.4 (3.5-5.1) mmol/L Chloride 107 (98-110) mmol/L Carbon Dioxide 21 (21-31) mmol/L BUN 14 (6.0-23.0) mg/dL Creatinine 1.1 (0.6-1.5) mg/dL Est Cr Clr Drug Dosing 87.47 mL/min Estimated GFR (MDRD) > 60.0 ml/min Glucose 157 H (60-110) mg/dL Calcium 9.5 (8.8-10.8) mg/dL Med Orders - Current: Current Medications Acetaminophen (Tylenol) 650 mg PO Q4H PRN PRN Reason: Pain (Mild 1-3)/fever Last Admin: 05/23/17 06:54 Dose: 650 mg Albuterol (Proventil Hfa) 0 gm INH Q4H PRN PRN Reason: cough, sob Albuterol/Ipratropium (Duoneb 3.0-0.5 Mg/3 Ml) 3 ml NEB Q4HRRT [facility] Benzonatate (Tessalon Perles) 100 mg PO TID PRN PRN Reason: Cough Enoxaparin Sodium (Lovenox) 40 mg SUBCUT DAILY@1999 [facility] Last Admin: 05/22/17 22:00 Dose: 40 mg Ketorolac Tromethamine (Toradol) 30 mg IVPUSH ONETIME ONE Stop: 05/23/17 09:46 Methylprednisolone Sodium Succinate (Solu-Medrol) 125 mg IVPUSH Q6H [facility] Ondansetron HCl (Zofran Odt) 4 mg PO Q4H PRN PRN Reason: nausea, able to take PO Oseltamivir Phosphate (Tamiflu) 75 mg PO BID [facility] Discontinued Medications Acetaminophen (Tylenol) 650 mg PO NOW ONE Stop: 05/22/17 20:17 Last Admin: 05/22/17 20:41 Dose: Not Given Albuterol/Ipratropium (Duoneb 3.0-0.5 Mg/3 Ml) 3 ml NEB ONETIME ONE Stop: 05/22/17 19:16 Last Admin: 05/22/17 19:20 Dose: 3 ml Albuterol/Ipratropium (Duoneb 3.0-0.5 Mg/3 Ml) 3 ml NEB Q6HRRT [facility] Last Admin: 05/23/17 06:48 Dose: 3 ml Sodium Chloride (Normal Saline) 1,000 mls @ 999 mls/hr IV STAT ONE Stop: 05/22/17 21:19 Last Admin: 05/22/17 20:39 Dose: 999 mls/hr Methylprednisolone Sodium Succinate (Solu-Medrol) 125 mg IVPUSH ONETIME ONE Stop: 05/22/17 20:10 Last Admin: 05/22/17 20:39 Dose: 125 mg Methylprednisolone Sodium Succinate (Solu-Medrol) 125 mg IVPUSH BID [facility] Last Admin: 05/23/17 09:21 Dose: 125 mg Oseltamivir Phosphate (Tamiflu) 75 mg PO DAILY [facility] Last Admin: 05/23/17 09:21 Dose: 75 mg - Exam Quality Assessment: Supplemental Oxygen General: Alert, Oriented HEENT: Pupils Equal, Pupils Reactive Neck: Supple, No JVD Lungs: Decreased Breath Sounds, Wheezing Cardiovascular: Regular Rate, Tachycardia GI/Abdominal Exam: Normal Bowel Sounds, Soft, Non-Tender, No Distention Back Exam: Normal Inspection Extremities: Normal Inspection, No Pedal Edema Peripheral Pulses: 2+: Radial (L), Radial (R) Skin: Warm, Dry, Intact Neurological: No New Focal Deficit Psy/Mental Status: Alert, Normal Affect, Normal Mood - Problem List Review Problem List Initiated/Reviewed/Updated: Yes - My Orders Last 24 Hours: My Active Orders 05/23/17 09:41 Albuterol [Proventil HFA] See Dose Instructions INH Q4H PRN 05/23/17 09:42 RT Post Treatment Assessment [RC] Click to Edit RT Pre-Treatment Assessment [RC] Click to Edit 05/23/17 09:45 Benzonatate [Tessalon Perles] 100 mg PO TID PRN Ketorolac [Toradol] 30 mg IVPUSH ONETIME ONE 05/23/17 09:46 methylPREDNISolone Sod Succ [Solu-MEDROL] 125 mg IVPUSH Q6H 05/23/17 10:00 Albuterol/Ipratropium [DuoNeb 3.0-0.5 MG/3 ML] 3 ml NEB Q4HRRT 05/23/17 21:00 Oseltamivir [Tamiflu] 75 mg PO BID - Plan Plan:: 47-year-old male with history of HTN and moderate persistent asthma admitted for acute influenza A with acute asthma exacerbation and hypoxia #Influenza A -on Tamiflu 75 mg BID -hypoxia, diminished breath sounds with poor air movement, pleuritis plan: -continue Tamiflu -administer Ketorolac 30 mg IV single dose followed by Ibuprofen PRN for pleuritic pain -tessalon pearls prn for cough #Acute Asthma Exacerbation, secondary to Influenza -increase duonebs from q6h to q4h -increase Solumedrol 125 mg IV from BID to [id number] -as per patients request, resume home proventil PRN for sob and cough #Hypoxia -likely multifactorial, secondary to influenza and asthma -currently on 3L O2 plan: -wean O2 -as per above #Hypertension -resume home Losartan 100 mg QD VTE proph: Lovenox, SCD Dispo: 1-2 days pending improvement
[2017-05-23] MEDS: Benzonatate 100 MG Cap PO PRN ×2 (10:36→18:01)
--- NOTE | 2017-05-23 11:41 | CR ---
EXAM DATE: 05/22/17 PATIENT'S AGE: 47 Patient: JANIYA TRAVIS Facility: [place], [place] Site . Site : 1970 Study: XRay Chest [id number] 8:15:12 PM Ordering Physician: Doctor Brizuela Final Report: CHEST 2 VIEWS INDICATION: Cough. IMPRESSION: Normal heart size and vascular pattern. Lungs are clear. No pneumothorax or pleural abnormality. Dictated by Matt Lobo MD @ May 22 2017 9:46PM (Electronic Signature) Report Signed by Proxy. [facility]ITAL[facility]ad[facility]
[2017-05-23] MEDS ORDERED: Albuterol 8 GM Inhaler INH PRN (12:15)
[2017-05-23] MEDS: methylPREDNISolone Sodium Succinate 125 MG/2 ML SDV IVPUSH SCH ×2 (15:03→20:41)
[2017-05-23] MEDS: Ibuprofen 800 MG Tab PO PRN (18:01)
[2017-05-23] MEDS: Enoxaparin 40 MG/0.4 ML Syringe SUBCUT SCH (20:39)
[2017-05-23] MEDS ORDERED: Hydrochlorothiazide/Losartan 12.5-50 mg Tab PO SCH (21:00)
[2017-05-24] MEDS: Albuterol/Ipratropium 3.0-0.5 MG/3 ML Neb Soln NEB SCH ×3 (02:25→09:47)
[2017-05-24] MEDS: methylPREDNISolone Sodium Succinate 125 MG/2 ML SDV IVPUSH SCH ×2 (02:25→08:14)
[2017-05-24 06:13] LABS: CHLORIDE,CL 108 mmol/L (98-110); SODIUM,NA 142 mmol/L (136-146)
[2017-05-24] MEDS: Benzonatate 100 MG Cap PO PRN (08:14)
[2017-05-24] MEDS: Oseltamivir 75 MG Cap PO SCH (08:14)
[2017-05-24 08:21] VITALS: BP 138/75
[2017-05-24] MEDS: Ibuprofen 800 MG Tab PO PRN (08:27)
--- NOTE | 2017-05-24 11:03 | PCM.DCSUM1 ---
Discharge Summary - Hospital Course Free Text/Narrative:: 47 year old male was admitted for on 05/22 for Hypoxia, Acute asthma exacerbation and Influenza. He was treated with Tamiflu, Solumedrol and duonebs. His home inhalers were also continued. He improved as expected. He was discharged home on 05/24/17. f/u with his PCP was arranged. His who was at bedside during most of hospitalization was prescribed phophylactic tamiflu. Discharge Diagnosis/Plan #1. Acute Asthma Exacerbation, improved -discharged on Prednisone 40 mg QD for 5 days -patient states he is on Albuterol and Advair which he was instructed to continue -f/u with pcp in 2 weeks #2. Influenza, improved -discharged home on Tamiflu 75 mg BID for 4 more days to equal total 7 days (7 day duration chosen due to severity of symptoms) - given prescription for prophylactic tamiflu #3. Hypoxia, resolved -plan as per above - Discharge Data Discharge Date: 05/24/17 Discharge Disposition: Home, Self-Care 01 Condition: Good - Patient Instructions Diet: Usual Diet as Tolerated Activity: As Tolerated Activity, Other: home from work until 05/28/17 - Discharge Plan Prescriptions/Med Rec: Benzonatate [Tessalon Perles] 100 mg PO TID PRN #30 cap PRN Reason: Cough Oseltamivir Phosphate [IJD: Tamiflu] 75 mg PO BID #9 capsule Prednisone [IJD: predniSONE] 40 mg PO WITHBREAKFAST #10 tab Home Medications: Home Meds Albuterol [Ventolin HFA] 2 inh INH Q4HR PRN 08/28/16 [History] Albuterol/Ipratropium [DuoNeb 3.0-0.5 MG/3 ML] 1 ampule PO ASDIRECTED 08/28/16 [ History] Celecoxib 200 mg PO DAILY PRN 05/23/17 [History] Colchicine [Colcrys] 0.6 mg PO ASDIRECTED PRN 05/23/17 [History] Fluticasone/Vilanterol [Breo Ellipta 200-25 Mcg INH] 1 each IH DAILY 05/23/17 [ History] Indomethacin 50 mg PO TID PRN 05/23/17 [History] Losartan/Hydrochlorothiazide [Losartan-HCTZ 50-12.5 MG] 1 each PO BEDTIME [History] Mometasone/Formoterol [Dulera 200-5 MCG] 2 puff IH BID 05/23/17 [History] Umeclidinium Moose [Incruse Ellipta*] 62.5 mcg IH DAILY 05/23/17 [History] Benzonatate [Tessalon Perles] 100 mg PO TID PRN #30 cap 05/24/17 [Rx] Oseltamivir Phosphate [IJD: Tamiflu] 75 mg PO BID #9 capsule 05/24/17 [Rx] Prednisone [IJD: predniSONE] 40 mg PO WITHBREAKFAST #10 tab 05/24/17 [Rx] Patient Handouts: Influenza, Adult, [id number] Referrals: Brock Gtz MD [Primary Care Provider] - 06/01/17 1:00 pm - Discharge Summary/Plan Comment DC Time >30 min.: No - Review of Systems General: Reports: No Symptoms HEENT: Reports: No Symptoms Pulmonary: Reports: No Symptoms Cardiovascular: Reports: No Symptoms Gastrointestinal: Reports: No Symptoms Genitourinary: Reports: No Symptoms Musculoskeletal: Reports: No Symptoms Skin: Reports: No Symptoms Neurological: Reports: No Symptoms Psychiatric: Reports: No Symptoms - Patient Data Vitals - Most Recent: Last Vital Signs Temp 36.3 C 05/24/17 08:00 Pulse 112 H 05/24/17 08:00 Resp 20 05/24/17 08:00 BP 138/75 05/24/17 08:00 Pulse Ox 93 L 05/24/17 08:00 Weight - Most Recent: 125.1 kg I&O - Last 24 hours: Intake & Output 05/23/17 05/24/17 05/24/17 22:59 06:59 14:59 Intake Total 1100 1210 Output Total 1300 Balance 1100 -90 Lab Results - Last 24 hrs: Laboratory Results - last 24 hr 05/24/17 05/24/17 Range/Units 04:50 04:50 WBC 11.66 H (4.0-11.0) K/uL RBC 4.79 (4.50-5.90) M/uL Hgb 14.3 (13.0-17.0) g/dL Hct 42.8 (38.0-50.0) % MCV 89.4 (80.0-98.0) fL MCH 29.9 (27.0-32.0) pg MCHC 33.4 (31.0-37.0) g/dL RDW Std Deviation 44.8 (28.0-62.0) fl RDW Coeff of Jesika 14 (11.0-15.0) % Plt Count 358 (150-400) K/uL MPV 9.30 (7.40-12.00) fL Neut % (Auto) 91.5 H (48.0-80.0) % Lymph % (Auto) 4.2 L (16.0-40.0) % [place] % (Auto) 4.3 (0.0-15.0) % Eos % (Auto) 0.0 (0.0-7.0) % Baso % (Auto) 0.0 (0.0-1.5) % Neut # (Auto) 10.7 H (1.4-5.7) K/uL Lymph # (Auto) 0.5 L (0.6-2.4) K/uL [place] # (Auto) 0.5 (0.0-0.8) K/uL Eos # (Auto) 0.0 (0.0-0.7) K/uL Baso # (Auto) 0.0 (0.0-0.1) K/uL Nucleated RBC % 0.0 /100WBC Nucleated RBCs # 0 K/uL Sodium 142 (136-146) mmol/L Potassium 4.4 (3.5-5.1) mmol/L Chloride 108 (98-110) mmol/L Carbon Dioxide 20 L (21-31) mmol/L BUN 22 (6.0-23.0) mg/dL Creatinine 1.1 (0.6-1.5) mg/dL Est Cr Clr Drug Dosing 87.47 mL/min Estimated GFR (MDRD) > 60.0 ml/min Glucose 163 H (60-110) mg/dL Calcium 9.6 (8.8-10.8) mg/dL Med Orders - Current: Current Medications Acetaminophen (Tylenol) 650 mg PO Q4H PRN PRN Reason: Pain (Mild 1-3)/fever Last Admin: 05/23/17 06:54 Dose: 650 mg Albuterol (Ventolin Hfa) 0 gm INH Q4H PRN PRN Reason: cough, sob Last Admin: 05/23/17 12:40 Dose: 2 puff Albuterol/Ipratropium (Duoneb 3.0-0.5 Mg/3 Ml) 3 ml NEB Q4HRRT [facility] Last Admin: 05/24/17 09:47 Dose: 3 ml Benzonatate (Tessalon Perles) 100 mg PO TID PRN PRN Reason: Cough Last Admin: 05/24/17 08:14 Dose: 100 mg Enoxaparin Sodium (Lovenox) 40 mg SUBCUT DAILY@1999 [facility] Last Admin: 05/23/17 20:39 Dose: 40 mg HCTZ/Losartan Potassium (Hyzaar 50-12.5 Mg) 1 tab PO BEDTIME [facility] Last Admin: 05/23/17 20:39 Dose: 1 tab Ibuprofen (Motrin) 800 mg PO Q6H PRN PRN Reason: sob Last Admin: 05/24/17 08:27 Dose: 800 mg Methylprednisolone Sodium Succinate (Solu-Medrol) 125 mg IVPUSH Q6H [facility] Last Admin: 05/24/17 08:14 Dose: 125 mg Ondansetron HCl (Zofran Odt) 4 mg PO Q4H PRN PRN Reason: nausea, able to take PO Oseltamivir Phosphate (Tamiflu) 75 mg PO BID [facility] Last Admin: 05/24/17 08:14 Dose: 75 mg Discontinued Medications Acetaminophen (Tylenol) 650 mg PO NOW ONE Stop: 05/22/17 20:17 Last Admin: 05/22/17 20:41 Dose: Not Given Albuterol (Proventil Hfa) 0 gm INH Q4H PRN PRN Reason: cough, sob Albuterol/Ipratropium (Duoneb 3.0-0.5 Mg/3 Ml) 3 ml NEB ONETIME ONE Stop: 05/22/17 19:16 Last Admin: 05/22/17 19:20 Dose: 3 ml Albuterol/Ipratropium (Duoneb 3.0-0.5 Mg/3 Ml) 3 ml NEB Q6HRRT [facility] Last Admin: 05/23/17 06:48 Dose: 3 ml Sodium Chloride (Normal Saline) 1,000 mls @ 999 mls/hr IV STAT ONE Stop: 05/22/17 21:19 Last Admin: 05/22/17 20:39 Dose: 999 mls/hr Ketorolac Tromethamine (Toradol) 30 mg IVPUSH ONETIME ONE Stop: 05/23/17 09:46 Last Admin: 05/23/17 10:37 Dose: 30 mg Methylprednisolone Sodium Succinate (Solu-Medrol) 125 mg IVPUSH ONETIME ONE Stop: 05/22/17 20:10 Last Admin: 05/22/17 20:39 Dose: 125 mg Methylprednisolone Sodium Succinate (Solu-Medrol) 125 mg IVPUSH BID [facility] Last Admin: 05/23/17 09:21 Dose: 125 mg Oseltamivir Phosphate (Tamiflu) 75 mg PO DAILY [facility] Last Admin: 05/23/17 09:21 Dose: 75 mg - Exam General: Reports: Alert, Oriented HEENT: Reports: Pupils Equal, Pupils Reactive Neck: Reports: Supple, No JVD Lungs: Reports: Normal Respiratory Effort, Decreased Breath Sounds, Wheezing Cardiovascular: Reports: Regular Rate, Regular Rhythm GI/Abdominal Exam: Normal Bowel Sounds, Soft, Non-Tender Extremities: Normal Inspection, No Pedal Edema, Normal Capillary Refill Neurological: Reports: No New Focal Deficit *Q Meaningful Use (DIS) - VTE *Q VTE Criteria *Q: - Stroke *Q Stroke Criteria *Q: - AMI *Q AMI Criteria *Q:
== END 2017-05-24 11:30 | disposition home or self-care (01) | DRG 203 ==
LOC: MW.ED 19:07 → MW.MS 20:27 → OBSVTOIN 21:15 → MW.MS 05-23 03:00
PROVIDERS: ADMIT Family Medicine; ATTEND Family Medicine
DX: J45.901 Unspecified asthma with (acute) exacerbation (principal); R09.02 Hypoxemia; J09.X2 Influenza due to identified novel influenza A virus with other respiratory manifestations; I10 Essential (primary) hypertension; Z79.899 Other long term (current) drug therapy
CPT/HCPCS: 36415; 71020; 71020-26; 80048; 80053; 85025; 87040; 87081; 87804; 87880; 94640; 96374; 99284; 99285-25; A9270-GY; J1650; J1885; J2930; J7040

== ENCOUNTER 2017-07-07 21:12 | Observation (INO) | payer OTHER ==
[2017-07-07] MEDS ORDERED: Albuterol/Ipratropium 3.0-0.5 MG/3 ML Neb Soln ONE (21:14)
[2017-07-07] MEDS ORDERED: Sodium Chloride 0.9% 2.5 ML Syringe FLUSH PRN (21:14)
[2017-07-07] MEDS ORDERED: Sodium Chloride 0.9% 1,000 ML IV ONE (21:14)
[2017-07-07] MEDS ORDERED: Albuterol/Ipratropium 3.0-0.5 MG/3 ML Neb Soln NEB ONE ×2 (21:14→21:51)
[2017-07-07] MEDS ORDERED: Sodium Chloride 0.9% 10 ML Syringe FLUSH PRN (21:14)
[2017-07-07] MEDS ORDERED: methylPREDNISolone Sodium Succinate 125 MG/2 ML SDV IVPUSH ONE (21:14)
--- NOTE | 2017-07-07 21:18 | EDM.PDOC ---
ED HPI GENERAL MEDICAL PROBLEM - General Stated Complaint: UNKNOWN Time Seen by Provider: 07/07/17 21:13 - History of Present Illness INITIAL COMMENTS - FREE TEXT/NARRATIVE: HISTORY AND PHYSICAL: History of present illness: The patient is a 47-year-old male with a known history of asthma and hypertension who presents with a recurrent asthma attack. Patient says that about a week ago he started feeling like an asthma attack was going to happen and he was seen at urgent care on Sunday. At that time he was put on prednisone 20 mg once a day for 5 days and he has been using his nebulizer machine at home. He said he started to feel better but then today started feeling worse again. The patient does not smoke and he has had no fevers chills nausea vomiting or diarrhea and has no chest pain. He's been coughing a lot which has been dry and hacking with only a scant amount of phlegm. The patient said he has been using his nebulizer treatments every 2 hours. 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 Patient says that he felt like he was not making any progress with his treatments. He said that he finished the prednisone today and things seem to worsen. Patient tells nursing he did have a positive influenza test the beginning of May. Review of systems: As per history of present illness and below otherwise all systems reviewed and negative. Past medical history: As per history of present illness and as reviewed below otherwise noncontributory. Surgical history: As per history of present illness and as reviewed below otherwise noncontributory. Social history: No reported history of drug or alcohol abuse. Family history: As per history of present illness and as reviewed below otherwise noncontributory. Physical exam: General: Well-developed well-nourished overweight male who seems somewhat breathless in the room and with activity and vital signs are noted by me including an O2 sat on room air of 89%. HEENT: Atraumatic, normocephalic, negative for conjunctival pallor or scleral icterus, mucous membranes moist, throat clear, neck supple, nontender, trachea midline. Lungs: Severely diminished breath sounds throughout all lung rodriguez with expiratory wheezing and rhonchi, breath sounds equal bilaterally, chest nontender. Heart: S1S2, regular rhythm slightly tachycardic rate on my evaluation Abdomen: Soft, nondistended, nontender. NABS. Pelvis: Stable nontender. Genitourinary: Deferred. Rectal: Deferred. Extremities: Atraumatic, negative for cords or calf pain. Neurovascular unremarkable. No pedal edema or leg asymmetry Neuro: Awake, alert, oriented. Cranial nerves II through XII unremarkable. Cerebellum unremarkable. Motor and sensory unremarkable throughout. Exam nonfocal. Skin: No diaphoresis and turgor is normal Diagnostics: Chest x-ray CBC CMP lactic acid influenza swab EKG Therapeutics: IV O2 monitor IV fluids duo neb Solu-Medrol Toradol After the first duo neb the patient is requiring 8 L simple mask oxygen to keep the sat at 95% and he is still having some work of breathing and wheezing. Respiratory therapy is currently at bedside giving another DuoNeb and evaluating for BiPAP. The patient says he is supposed to wear C Pap at sleep times and he does not have the machine with him. We will continue to monitor his responses and proceed to BiPAP as indicated. After the second duo neb the patient is improving and we are weaning his oxygen but he is aware of all testing results and my recommendation for observation admission and he agrees. Impression: Acute asthma exacerbation with hypoxia Definitive disposition and diagnosis as appropriate pending reevaluation and review of above. - Related Data Allergies Allergy/AdvReac Type Severity Reaction Status Date / Time No Known Allergies Allergy Verified 07/07/17 21:18 Home Meds: Home Meds Albuterol [Ventolin HFA] 2 inh INH Q4HR PRN 08/28/16 [History] Albuterol/Ipratropium [DuoNeb 3.0-0.5 MG/3 ML] 1 ampule PO ASDIRECTED 08/28/16 [ History] Celecoxib 200 mg PO DAILY PRN 05/23/17 [History] Colchicine [Colcrys] 0.6 mg PO ASDIRECTED PRN 05/23/17 [History] Fluticasone/Vilanterol [Breo Ellipta 200-25 Mcg INH] 1 each IH DAILY 05/23/17 [ History] Indomethacin 50 mg PO TID PRN 05/23/17 [History] Losartan/Hydrochlorothiazide [Losartan-HCTZ 50-12.5 MG] 1 each PO BEDTIME [History] Mometasone/Formoterol [Dulera 200-5 MCG] 2 puff IH BID 05/23/17 [History] Umeclidinium [place] [Incruse Ellipta*] 62.5 mcg IH DAILY 05/23/17 [History] Benzonatate [Tessalon Perles] 100 mg PO TID PRN #30 cap 05/24/17 [Rx] Oseltamivir Phosphate [IJD: Tamiflu] 75 mg PO BID #9 capsule 05/24/17 [Rx] Prednisone [IJD: predniSONE] 40 mg PO WITHBREAKFAST #10 tab 05/24/17 [Rx] Past Medical History HEENT History: Reports: Impaired Vision Other HEENT History: Patient reports farsightedness Cardiovascular History: Reports: Hypertension Respiratory History: Reports: Asthma Gastrointestinal History: Reports: None Genitourinary History: Reports: None, Retention, Urinary Musculoskeletal History: Reports: None, Gout Neurological History: Reports: None Psychiatric History: Reports: None Endocrine/Metabolic History: Reports: None, Obesity/BMI 30+ Hematologic History: Reports: None Immunologic History: Reports: None Oncologic (Cancer) History: Reports: None Dermatologic History: Reports: None - Infectious Disease History Infectious Disease History: Reports: Chicken Pox - Past Surgical History HEENT Surgical History: Reports: Naso-Sinus Surgery, Polypectomy Musculoskeletal Surgical History: Reports: None, Other (See Below) Social & Family History - Family History Family Medical History: Noncontributory Cardiac: Reports: Hypertension, [place] Respiratory: Reports: Asthma, Other (See Below) Other Respiratory Family Hisory: Mother had lung CA. She was a heavy smoker. Oncologic: Reports: Lung - Tobacco Use Smoking Status *Q: Current Every Day Smoker Years of Tobacco use: 20 Packs/Tins Daily: 1 Second Hand Smoke Exposure: No - Caffeine Use Caffeine Use: Reports: Tea Caffeine Use Comment: Occasional coffee drinker - Alcohol Use Days Per Week of Alcohol Use: 0 Number of Drinks Per Day: 0 Total Drinks Per Week: 0 - Recreational Drug Use Recreational Drug Use: No - Living Situation & Occupation Living situation: Reports: Occupation: Employed ED ROS GENERAL - Review of Systems Review Of Systems: ROS reveals no pertinent complaints other than HPI. ED EXAM, GENERAL - Physical Exam Exam: See Below (See dictation) Course - Vital Signs Last Recorded V/S: Last Vital Signs Temp 36.4 C 07/07/17 21:18 Pulse 121 H 02/10/18 21:18 Resp 22 H 07/07/17 21:18 BP 198/111 H 07/07/17 21:18 Pulse Ox 89 L 07/07/17 21:18 - Orders/Labs/Meds Orders: Active Orders 24 hr Category Date Time Status Cardiac Monitoring [RC] . DIRECTED Care 07/07/17 21:13 Active EKG Documentation Completion [RC] STAT Care 07/07/17 21:13 Active Oxygen Therapy, ED [RC] ASDIRECTED Care 07/07/17 21:13 Active Pulse Oximetry [RC] ASDIRECTED Care 07/07/17 21:13 Active RT Aerosol Therapy [RC] ASDIRECTED Care 07/07/17 21:15 Active RT Aerosol Therapy [RC] ASDIRECTED Care 07/07/17 21:51 Active Chest 2V [CR] Stat Exams 07/07/17 21:14 Taken Sodium Chloride 0.9% [Normal Saline] 1,000 ml Med 07/07/17 21:14 Active IV STAT Sodium Chloride 0.9% [Saline Flush] Med 07/07/17 21:14 Active 10 ml FLUSH ASDIRECTED PRN Sodium Chloride 0.9% [Saline Flush] Med 07/07/17 21:14 Active 2.5 ml FLUSH ASDIRECTED PRN Saline Lock Insert [OM.PC] Stat Oth 07/07/17 21:13 Ordered Medication Orders Sodium Chloride (Normal Saline) 1,000 mls @ 999 mls/hr IV STAT ONE Stop: 07/07/17 22:14 Last Admin: 07/07/17 21:27 Dose: 999 mls/hr Sodium Chloride (Saline Flush) 10 ml FLUSH ASDIRECTED PRN PRN Reason: Keep Vein Open Sodium Chloride (Saline Flush) 2.5 ml FLUSH ASDIRECTED PRN PRN Reason: Keep Vein Open Labs: Laboratory Tests 07/07/17 07/07/17 07/07/17 Range/Units 21:20 21:20 21:20 WBC 11.42 H (4.0-11.0) K/uL RBC 4.87 (4.50-5.90) M/uL Hgb 15.1 (13.0-17.0) g/dL Hct 43.2 (38.0-50.0) % MCV 88.7 (80.0-98.0) fL MCH 31.0 (27.0-32.0) pg MCHC 35.0 (31.0-37.0) g/dL RDW Std Deviation 48.4 (28.0-62.0) fl RDW Coeff of Jesika 15 (11.0-15.0) % Plt Count 293 (150-400) K/uL MPV 9.30 (7.40-12.00) fL Neut % (Auto) 58.1 (48.0-80.0) % Lymph % (Auto) 16.1 (16.0-40.0) % [place] % (Auto) 6.8 (0.0-15.0) % Eos % (Auto) 18.1 H (0.0-7.0) % Baso % (Auto) 0.9 (0.0-1.5) % Neut # (Auto) 6.6 H (1.4-5.7) K/uL Lymph # (Auto) 1.8 (0.6-2.4) K/uL [place] # (Auto) 0.8 (0.0-0.8) K/uL Eos # (Auto) 2.1 H (0.0-0.7) K/uL Baso # (Auto) 0.1 (0.0-0.1) K/uL Nucleated RBC % 0.0 /100WBC Nucleated RBCs # 0 K/uL Lactate 1.0 (0.20-2.00) mmol/L Sodium 141 (136-146) mmol/L Potassium 3.4 L (3.5-5.1) mmol/L Chloride 108 (98-110) mmol/L Carbon Dioxide 22 (21-31) mmol/L BUN 16 (6.0-23.0) mg/dL Creatinine 1.1 (0.6-1.5) mg/dL Est Cr Clr Drug Dosing 87.47 mL/min Estimated GFR (MDRD) > 60.0 ml/min Glucose 90 (60-110) mg/dL Calcium 9.7 (8.8-10.8) mg/dL Total Bilirubin 1.7 H (0.1-1.5) mg/dL AST 35 (5-40) IU/L ALT 54 (8-54) IU/L Alkaline Phosphatase 99 (40-150) Total Protein 7.3 (6.0-8.0) g/dL Albumin 4.7 (3.5-5.0) g/dL Globulin 2.6 (2.0-3.5) g/dL Albumin/Globulin Ratio 1.8 (1.3-2.8) Meds: Medications Generic Name Dose Route Start Last Admin Trade Name Freq PRN Reason Stop Dose Admin Sodium Chloride 1,000 mls @ 999 mls/hr 07/07/17 21:14 07/07/17 21:27 Normal Saline IV 07/07/17 22:14 999 mls/hr STAT ONE Administration Sodium Chloride 10 ml 07/07/17 21:14 Saline Flush FLUSH ASDIRECTED PRN Keep Vein Open Sodium Chloride 2.5 ml 07/07/17 21:14 Saline Flush FLUSH ASDIRECTED PRN Keep Vein Open Discontinued Medications Generic Name Dose Route Start Last Admin Trade Name Freq PRN Reason Stop Dose Admin Albuterol/Ipratropium 3 ml 07/07/17 21:14 07/07/17 21:27 Duoneb 3.0-0.5 Mg/3 Ml NEB 07/07/17 21:15 3 ml ONETIME ONE Administration Albuterol/Ipratropium Confirm 07/07/17 21:14 07/07/17 21:27 Duoneb 3.0-0.5 Mg/3 Ml Administered 07/07/17 21:15 Not Given Dose 3 ml .ROUTE .STK-MED ONE Albuterol/Ipratropium 3 ml 07/07/17 21:51 07/07/17 21:56 Duoneb 3.0-0.5 Mg/3 Ml NEB 07/07/17 21:52 3 ml ONETIME ONE Administration Ketorolac Tromethamine 30 mg 07/07/17 21:57 07/07/17 22:02 Toradol IVPUSH 07/07/17 21:58 30 mg ONETIME ONE Administration Methylprednisolone Sodium Succinate 125 mg 07/07/17 21:14 07/07/17 21:27 Solu-Medrol IVPUSH 07/07/17 21:15 125 mg ONETIME ONE Administration Departure - Departure Time of Disposition: 22:09 Disposition: Refer to Observation Condition: Fair Clinical Impression: Hypoxia Acute asthma exacerbation Qualifiers: Asthma severity: moderate Asthma persistence: unspecified Qualified Code(s): J45.901 - Unspecified asthma with (acute) exacerbation - Discharge Information Referrals: PCP,None [Primary Care Provider] - - My Orders Last 24 Hours: My Active Orders 07/07/17 21:13 Cardiac Monitoring [RC] . DIRECTED EKG Documentation Completion [RC] STAT Oxygen Therapy, ED [RC] ASDIRECTED Pulse Oximetry [RC] ASDIRECTED Saline Lock Insert [OM.PC] Stat 07/07/17 21:14 Chest 2V [CR] Stat Sodium Chloride 0.9% [Normal Saline] 1,000 ml IV STAT Sodium Chloride 0.9% [Saline Flush] 10 ml FLUSH ASDIRECTED PRN Sodium Chloride 0.9% [Saline Flush] 2.5 ml FLUSH ASDIRECTED PRN 07/07/17 21:15 RT Aerosol Therapy [RC] ASDIRECTED 07/07/17 21:51 RT Aerosol Therapy [RC] ASDIRECTED - Assessment/Plan Last 24 Hours: My Active Orders 07/07/17 21:13 Cardiac Monitoring [RC] . DIRECTED EKG Documentation Completion [RC] STAT Oxygen Therapy, ED [RC] ASDIRECTED Pulse Oximetry [RC] ASDIRECTED Saline Lock Insert [OM.PC] Stat 07/07/17 21:14 Chest 2V [CR] Stat Sodium Chloride 0.9% [Normal Saline] 1,000 ml IV STAT Sodium Chloride 0.9% [Saline Flush] 10 ml FLUSH ASDIRECTED PRN Sodium Chloride 0.9% [Saline Flush] 2.5 ml FLUSH ASDIRECTED PRN 07/07/17 21:15 RT Aerosol Therapy [RC] ASDIRECTED 07/07/17 21:51 RT Aerosol Therapy [RC] ASDIRECTED
[2017-07-07 21:50] LABS: CHLORIDE,CL 108 mmol/L (98-110); SODIUM,NA 141 mmol/L (136-146)
[2017-07-07] MEDS ORDERED: Ketorolac 30 MG/ML SDV IVPUSH ONE (21:57)
--- NOTE | 2017-07-07 22:18 | PCM.HP ---
H&P History of Present Illness - General Date of Service: 07/07/17 Admit Problem/Dx: Admission Diagnosis/Problem Admission Diagnosis/Problem Acute asthma Source of Information: Patient History Limitations: Reports: No Limitations - History of Present Illness Initial Comments - Free Text/Narative: 47-year-old male presenting to the emergency department with chief complaint of one week of shortness of breath with past medical history of moderate persistent asthma and hypertension. Patient stated that approximately a week ago he started feeling like he was starting to have an asthma attack. He did go to an urgent care center on Sunday of this week where he was given prednisone 20 mg for 5 days. He states that he did take those medications and had been using his nebulizer at home. He did start feeling better with the steriods but once finished began to have symptoms again so presented to the emergency department for further evaluation. Patient is a nonsmoker and denies any fevers, chills, nausea, vomiting, diarrhea, chest pain, palpitations, syncopal events, or new focal neurologic deficits. 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 He does take a daily medication as well as his rescue inhaler. Patient was recently hospitalized here in April for influenza and asthma exacerbation. He did require 2 days of steroids and DuoNeb nebs for him to feel better. In the emergency department mild leukocytosis of 11.4 most likely secondary to steroids as patient afebrile and reporting no symptoms. Lactate and CMP were unremarkable. Influenza screen was negative. He was given duo nebs and 125 mg IV Solu-Medrol with improvement. Patient was admitted for hypoxia/asthma exacerbation. - Related Data Allergies/Adverse Reactions: Allergies Allergy/AdvReac Type Severity Reaction Status Date / Time No Known Allergies Allergy Verified 07/07/17 21:18 Home Medications: Home Meds Albuterol [Ventolin HFA] 2 inh INH Q4HR PRN 08/28/16 [History] Albuterol/Ipratropium [DuoNeb 3.0-0.5 MG/3 ML] 1 ampule PO ASDIRECTED 08/28/16 [ History] Fluticasone/Vilanterol [Breo Ellipta 200-25 Mcg INH] 1 each IH DAILY 05/23/17 [ History] Losartan/Hydrochlorothiazide [Losartan-HCTZ 50-12.5 MG] 1 each PO BEDTIME [History] Past Medical History HEENT History: Reports: Impaired Vision Other HEENT History: Patient reports farsightedness Cardiovascular History: Reports: Hypertension Respiratory History: Reports: Asthma Gastrointestinal History: Reports: None Genitourinary History: Reports: None, Retention, Urinary Musculoskeletal History: Reports: None, Gout Neurological History: Reports: None Psychiatric History: Reports: None Endocrine/Metabolic History: Reports: None, Obesity/BMI 30+ Hematologic History: Reports: None Immunologic History: Reports: None Oncologic (Cancer) History: Reports: None Dermatologic History: Reports: None - Infectious Disease History Infectious Disease History: Reports: Chicken Pox - Past Surgical History HEENT Surgical History: Reports: Naso-Sinus Surgery, Polypectomy Musculoskeletal Surgical History: Reports: None, Other (See Below) Social & Family History - Family History Family Medical History: Noncontributory Cardiac: Reports: Hypertension, [place] Respiratory: Reports: Asthma, Other (See Below) Other Respiratory Family Hisory: Mother had lung CA. She was a heavy smoker. Oncologic: Reports: Lung - Tobacco Use Smoking Status *Q: Current Every Day Smoker Years of Tobacco use: 20 Packs/Tins Daily: 1 Second Hand Smoke Exposure: No - Caffeine Use Caffeine Use: Reports: Tea Caffeine Use Comment: Occasional coffee drinker - Alcohol Use Days Per Week of Alcohol Use: 0 Number of Drinks Per Day: 0 Total Drinks Per Week: 0 - Recreational Drug Use Recreational Drug Use: No - Living Situation & Occupation Living situation: Reports: Occupation: Employed H&P Review of Systems - Review of Systems: Review Of Systems: See Below General: Denies: Fever, Chills, Weakness HEENT: Denies: Contact Lenses, Vertigo Pulmonary: Reports: Shortness of Breath, Wheezing. Denies: Pleuritic Chest Pain , Hemoptysis Cardiovascular: Denies: Chest Pain, Palpitations, Lightheadedness Gastrointestinal: Denies: Abdominal Pain, Anorexia, Diarrhea, Nausea, Vomiting Genitourinary: Denies: Dysuria, Hematuria Musculoskeletal: Denies: Neck Pain Skin: Denies: Cyanosis Psychiatric: Denies: Confusion, Depression Neurological: Denies: Confusion, Dizziness, Headache Hematologic/Lymphatic: Denies: Anemia Exam - Exam Exam: See Below - Vital Signs Vital Signs: Last Vital Signs Temp 97.6 F 07/07/17 21:18 Pulse 113 H 07/07/17 22:07 Resp 26 H 07/07/17 22:07 BP 198/111 H 07/07/17 21:18 Pulse Ox 94 L 07/07/17 22:07 Weight: 117.027 kg - Exam Quality Assessment: Supplemental Oxygen General: Alert, Oriented, Cooperative HEENT: Conjunctiva Clear, EACs Clear, EOMI, Hearing Intact, Mucosa Moist & [place] , Nares Patent, PERRLA Neck: Supple, Trachea Midline. No: JVD Lungs: Normal Respiratory Effort, Decreased Breath Sounds, Wheezing Cardiovascular: Regular Rate, Regular Rhythm, Normal S1, Normal S2 GI/Abdominal Exam: Normal Bowel Sounds, Soft, Non-Tender, No Organomegaly, No Distention, No Abnormal Bruit (Male) Exam: Deferred Rectal (Males) Exam: Deferred Back Exam: Normal Inspection, Full Range of Motion, NT Extremities: Normal Inspection, Normal Range of Motion, Non-Tender, No Pedal Edema, Normal Capillary Refill Peripheral Pulses: 2+: Radial (L), Radial (R), Posterior Tibial (L), Posterior Tibial (R), Dorsalis Pedis (L), Dorsalis Pedis (R) Skin: Warm, Dry, Intact Neurological: Cranial Nerves Intact Neuro Extensive - Mental Status: Alert, Oriented x3, Normal Mood/Affect, Normal Cognition Neuro Extensive - Motor, Sensory, Reflexes: CN II-XII Intact Psychiatric: Alert, Normal Affect, Normal Mood - Patient Data Lab Results Last 24 hrs: Laboratory Results - last 24 hr 07/07/17 07/07/17 07/07/17 Range/Units 21:20 21:20 21:20 WBC 11.42 H (4.0-11.0) K/uL RBC 4.87 (4.50-5.90) M/uL Hgb 15.1 (13.0-17.0) g/dL Hct 43.2 (38.0-50.0) % MCV 88.7 (80.0-98.0) fL MCH 31.0 (27.0-32.0) pg MCHC 35.0 (31.0-37.0) g/dL RDW Std Deviation 48.4 (28.0-62.0) fl RDW Coeff of Jesika 15 (11.0-15.0) % Plt Count 293 (150-400) K/uL MPV 9.30 (7.40-12.00) fL Neut % (Auto) 58.1 (48.0-80.0) % Lymph % (Auto) 16.1 (16.0-40.0) % [place] % (Auto) 6.8 (0.0-15.0) % Eos % (Auto) 18.1 H (0.0-7.0) % Baso % (Auto) 0.9 (0.0-1.5) % Neut # (Auto) 6.6 H (1.4-5.7) K/uL Lymph # (Auto) 1.8 (0.6-2.4) K/uL [place] # (Auto) 0.8 (0.0-0.8) K/uL Eos # (Auto) 2.1 H (0.0-0.7) K/uL Baso # (Auto) 0.1 (0.0-0.1) K/uL Nucleated RBC % 0.0 /100WBC Nucleated RBCs # 0 K/uL Lactate 1.0 (0.20-2.00) mmol/L Sodium 141 (136-146) mmol/L Potassium 3.4 L (3.5-5.1) mmol/L Chloride 108 (98-110) mmol/L Carbon Dioxide 22 (21-31) mmol/L BUN 16 (6.0-23.0) mg/dL Creatinine 1.1 (0.6-1.5) mg/dL Est Cr Clr Drug Dosing 87.47 mL/min Estimated GFR (MDRD) > 60.0 ml/min Glucose 90 (60-110) mg/dL Calcium 9.7 (8.8-10.8) mg/dL Total Bilirubin 1.7 H (0.1-1.5) mg/dL AST 35 (5-40) IU/L ALT 54 (8-54) IU/L Alkaline Phosphatase 99 (40-150) Total Protein 7.3 (6.0-8.0) g/dL Albumin 4.7 (3.5-5.0) g/dL Globulin 2.6 (2.0-3.5) g/dL Albumin/Globulin Ratio 1.8 (1.3-2.8) Result Diagrams: 07/08/17 05:05 07/08/17 05:05 Adam Results Last 24 hrs: Microbiology 07/07/17 21:29 Influenza Type A Antigen Screen - Final Nasopharyngeal Swab NEGATIVE INFLUENZA A VIRUS AG Influenza Type B Antigen Screen - Final NEGATIVE INFLUENZA B VIRUS AG *Q Meaningful Use (ADM) - VTE *Q VTE Criteria *Q: - Stroke *Q Stroke Criteria *Q: - AMI *Q AMI Criteria *Q: - Problem List (1) Acute asthma exacerbation SNOMED Code(s): 692433634 ICD Code: J45.901 - UNSPECIFIED ASTHMA WITH (ACUTE) EXACERBATION Status: Acute Priority: High Current Visit: Yes Qualifiers: Asthma severity: moderate Asthma persistence: unspecified Qualified Code( s): J45.901 - Unspecified asthma with (acute) exacerbation (2) Hypoxia SNOMED Code(s): 094820013 ICD Code: R09.02 - HYPOXEMIA Status: Acute Priority: High Current Visit : Yes (3) HTN (hypertension) SNOMED Code(s): 13627637 Status: Chronic Priority: Low Current Visit: Yes Qualifiers: Hypertension type: essential hypertension Qualified Code(s): I10 - Essential (primary) hypertension (4) Moderate persistent asthma SNOMED Code(s): 810287558 ICD Code: J45.40 - MODERATE PERSISTENT ASTHMA, UNCOMPLICATED Status: Chronic Priority: High Current Visit: Yes Qualifiers: Asthma complication type: uncomplicated Qualified Code(s): J45.40 - Moderate persistent asthma, uncomplicated Problem List Initiated/Reviewed/Updated: Yes Orders Last 24hrs: Active Orders 24 hr Category Date Time Status Patient Status [ADT] Stat ADT 07/07/17 22:11 Active Cardiac Monitoring [RC] . DIRECTED Care 07/07/17 21:13 Active EKG Documentation Completion [RC] STAT Care 07/07/17 21:13 Active Oxygen Therapy, ED [RC] ASDIRECTED Care 07/07/17 21:13 Active Pulse Oximetry [RC] ASDIRECTED Care 07/07/17 21:13 Active RT Aerosol Therapy [RC] ASDIRECTED Care 07/07/17 21:15 Active RT Aerosol Therapy [RC] ASDIRECTED Care 07/07/17 21:51 Active Chest 2V [CR] Stat Exams 07/07/17 21:14 Taken Sodium Chloride 0.9% [Saline Flush] Med 07/07/17 21:14 Active 10 ml FLUSH ASDIRECTED PRN Sodium Chloride 0.9% [Saline Flush] Med 07/07/17 21:14 Active 2.5 ml FLUSH ASDIRECTED PRN Saline Lock Insert [OM.PC] Stat Oth 07/07/17 21:13 Ordered Medication Orders Sodium Chloride (Saline Flush) 10 ml FLUSH ASDIRECTED PRN PRN Reason: Keep Vein Open Sodium Chloride (Saline Flush) 2.5 ml FLUSH ASDIRECTED PRN PRN Reason: Keep Vein Open Assessment/Plan Comment:: 47-year-old male admitted hypoxia secondary to acute asthma exacerbation with past medical history of moderate persistent asthma and hypertension. Hypoxia/acute asthma exacerbation: We'll treat with duo nebs and IV Solu- Medrol. Patient did require hospitalization for extended amount of time when he was diagnosed with influenza in April. We will watch him closely and when his respiratory status improves we will discharge him with a long dose taper of steroids. Hypertension: Currently controlled will restart home medications.
[2017-07-07] MEDS ORDERED: Albuterol/Ipratropium 3.0-0.5 MG/3 ML Neb Soln NEB PRN (22:43)
[2017-07-07] MEDS ORDERED: Morphine 2 MG/ML Syringe IVPUSH PRN (22:48)
[2017-07-07] MEDS ORDERED: Acetaminophen 325 MG Tab PO PRN (22:49)
[2017-07-08] MEDS: methylPREDNISolone Sodium Succinate 40 MG/1 ML SDV IVPUSH SCH ×2 (02:01→08:44)
[2017-07-08] MEDS ORDERED: Ondansetron 4 MG Tab.DIS PO PRN (05:55)
[2017-07-08] MEDS ORDERED: Morphine 2 MG/ML Syringe IVPUSH PRN (05:55)
[2017-07-08 06:05] LABS: CHLORIDE,CL 108 mmol/L (98-110); SODIUM,NA 141 mmol/L (136-146)
--- NOTE | 2017-07-08 08:40 | PCM.DCSUM1 ---
Discharge Summary - Hospital Course HPI Initial Comments: 47-year-old male admitted hypoxia secondary to acute asthma exacerbation with past medical history of moderate persistent asthma and hypertension. Brief History: Patient stated that approximately a week ago he started feeling like he was starting to have an asthma attack. He did go to an urgent care center on Sunday of this week where he was given prednisone 20 mg for 5 days. He stated that he did take those medications and had been using his nebulizer at home. He did start feeling better with the steriods but once finished began to have symptoms again so presented to the emergency department for further evaluation. Patient is a nonsmoker and denies any fevers, chills, nausea, vomiting, diarrhea, chest pain, palpitations, syncopal events, or new focal neurologic deficits. 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 He does take a daily medication as well as his rescue inhaler. Patient was recently hospitalized here in April for influenza and asthma exacerbation. He did require 2 days of steroids and DuoNeb nebs for him to feel better. - Discharge Data Discharge Date: 07/08/17 Discharge Disposition: Home, Self-Care 01 Condition: Good - Discharge Diagnosis/Problem(s) (1) Acute asthma exacerbation SNOMED Code(s): 166742208 ICD Code: J45.901 - UNSPECIFIED ASTHMA WITH (ACUTE) EXACERBATION Status: Resolved Priority: High Current Visit: Yes Qualifiers: Asthma severity: moderate Asthma persistence: unspecified Qualified Code( s): J45.901 - Unspecified asthma with (acute) exacerbation (2) Hypoxia SNOMED Code(s): 779957950 ICD Code: R09.02 - HYPOXEMIA Status: Resolved Priority: High Current Visit: Yes (3) HTN (hypertension) SNOMED Code(s): 12620193 Status: Chronic Priority: Low Current Visit: Yes Qualifiers: Hypertension type: essential hypertension Qualified Code(s): I10 - Essential (primary) hypertension (4) Moderate persistent asthma SNOMED Code(s): 065393675 ICD Code: J45.40 - MODERATE PERSISTENT ASTHMA, UNCOMPLICATED Status: Chronic Priority: High Current Visit: Yes Qualifiers: Asthma complication type: uncomplicated Qualified Code(s): J45.40 - Moderate persistent asthma, uncomplicated - Patient Instructions Diet: Heart Healthy Diet Activity: Rest and Relax Today Driving: Do Not Drive Showering/Bathing: September Shower Notify Provider of: Fever, Increased Pain, Nausea and/or Vomiting Other/Special Instructions: Follow-up with primary care physician. return to emergency department if new or worsening symptoms. - Discharge Plan Prescriptions/Med Rec: Prednisone [IJD: predniSONE] 20 mg PO WITHBREAKFAST #30 tab Home Medications: Home Meds Albuterol [Ventolin HFA] 2 inh INH Q4HR PRN 08/28/16 [History] Albuterol/Ipratropium [DuoNeb 3.0-0.5 MG/3 ML] 1 ampule PO ASDIRECTED 08/28/16 [ History] Fluticasone/Vilanterol [Breo Ellipta 200-25 Mcg INH] 1 each IH DAILY 05/23/17 [ History] Losartan/Hydrochlorothiazide [Losartan-HCTZ 50-12.5 MG] 1 each PO BEDTIME [History] Prednisone [IJD: predniSONE] 20 mg PO WITHBREAKFAST #30 tab 07/08/17 [Rx] Forms: ED Department Discharge Referrals: PCP,None [Primary Care Provider] - - Discharge Summary/Plan Comment DC Time >30 min.: No Discharge Summary/Plan Comment: 47-year-old male admitted hypoxia secondary to acute asthma exacerbation with past medical history of moderate persistent asthma and hypertension. Patient stated that approximately a week ago he started feeling like he was starting to have an asthma attack. He did go to an urgent care center on Sunday of this week where he was given prednisone 20 mg for 5 days. He stated that he did take those medications and had been using his nebulizer at home. He did start feeling better with the steriods but once finished began to have symptoms again so presented to the emergency department for further evaluation. Patient is a nonsmoker and denies any fevers, chills, nausea, vomiting, diarrhea, chest pain, palpitations, syncopal events, or new focal neurologic deficits. 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 He does take a daily medication as well as his rescue inhaler. Patient was recently hospitalized here in April for influenza and asthma exacerbation. He did require 2 days of steroids and DuoNeb nebs for him to feel better. In the emergency department mild leukocytosis of 11.4 most likely secondary to steroids as patient afebrile and reporting no symptoms. Lactate and CMP were unremarkable. Influenza screen was negative. He was given duo nebs and 125 mg IV Solu-Medrol with improvement. Patient was admitted for hypoxia/asthma exacerbation. Patient did well throughout his stay. He was treated with IV Solu-Medrol as well as DuoNeb's. On second day of admission he was satting 93% on room air. He was discharged in good condition with a prescription for a long dose prednisone taper. He was also scheduled for a follow-up with primary care physician. He was instructed to return to the emergency department if he had any new or worsening symptoms. Patient states that he is planning on returning to [place] for work as he feels that the cold weather is exacerbating his asthma. - General Info Date of Service: 07/08/17 Admission Dx/Problem (Free Text: Admission Diagnosis/Problem Admission Diagnosis/Problem Acute asthma Subjective Update: Doing much better this morning. States that he has not been using supplemental oxygen all morning long. Is wishing to go home if he is able. Denies any pain or shortness of breath. Functional Status: Reports: Pain Controlled, Tolerating Diet, Ambulating - Review of Systems General: Denies: Fever, Weakness, Fatigue HEENT: Denies: Dysphasia, Headaches, Sinus Congestion Pulmonary: Reports: Shortness of Breath. Denies: Cough, Sputum Cardiovascular: Denies: Chest Pain, Palpitations, Edema Gastrointestinal: Denies: Abdominal Pain, Nausea, Vomiting Genitourinary: Denies: Dysuria, Hematuria Musculoskeletal: Denies: Neck Pain, Leg Pain Skin: Denies: Cyanosis Neurological: Denies: Confusion, Dizziness, Headache Psychiatric: Denies: Confusion - Patient Data Vitals - Most Recent: Last Vital Signs Temp 97.8 F 07/08/17 04:00 Pulse 86 07/08/17 04:00 Resp 20 07/08/17 04:00 BP 151/89 H 07/08/17 04:00 Pulse Ox 95 07/08/17 04:00 Weight - Most Recent: 117.027 kg I&O - Last 24 hours: Intake & Output 07/07/17 07/08/17 07/08/17 22:59 06:59 14:59 Intake Total 900 Output Total 950 Balance -50 Lab Results - Last 24 hrs: Laboratory Results - last 24 hr 07/08/17 07/08/17 Range/Units 05:05 05:05 WBC 9.09 (4.0-11.0) K/uL RBC 4.76 (4.50-5.90) M/uL Hgb 14.5 (13.0-17.0) g/dL Hct 42.3 (38.0-50.0) % MCV 88.9 (80.0-98.0) fL MCH 30.5 (27.0-32.0) pg MCHC 34.3 (31.0-37.0) g/dL RDW Std Deviation 48.5 (28.0-62.0) fl RDW Coeff of Jesika 15 (11.0-15.0) % Plt Count 264 (150-400) K/uL MPV 9.40 (7.40-12.00) fL Neut % (Auto) 93.1 H (48.0-80.0) % Lymph % (Auto) 5.9 L (16.0-40.0) % [place] % (Auto) 0.6 (0.0-15.0) % Eos % (Auto) 0.2 (0.0-7.0) % Baso % (Auto) 0.2 (0.0-1.5) % Neut # (Auto) 8.5 H (1.4-5.7) K/uL Lymph # (Auto) 0.5 L (0.6-2.4) K/uL [place] # (Auto) 0.1 (0.0-0.8) K/uL Eos # (Auto) 0.0 (0.0-0.7) K/uL Baso # (Auto) 0.0 (0.0-0.1) K/uL Nucleated RBC % 0.0 /100WBC Nucleated RBCs # 0 K/uL Sodium 141 (136-146) mmol/L Potassium 4.0 (3.5-5.1) mmol/L Chloride 108 (98-110) mmol/L Carbon Dioxide 22 (21-31) mmol/L BUN 15 (6.0-23.0) mg/dL Creatinine 1.0 (0.6-1.5) mg/dL Est Cr Clr Drug Dosing 95.82 mL/min Estimated GFR (MDRD) > 60.0 ml/min Glucose 153 H (60-110) mg/dL Calcium 9.4 (8.8-10.8) mg/dL Med Orders - Current: Current Medications Acetaminophen (Tylenol) 650 mg PO Q6H PRN PRN Reason: Pain Albuterol/Ipratropium (Duoneb 3.0-0.5 Mg/3 Ml) 3 ml NEB Q4HRRT PRN PRN Reason: Wheezing Last Admin: 07/08/17 01:55 Dose: 3 ml Enoxaparin Sodium (Lovenox) 40 mg SUBCUT DAILY DOMINIQUE Methylprednisolone Sodium Succinate (Solu-Medrol) 60 mg IVPUSH Q6H DOMINIQUE Last Admin: 07/08/17 02:01 Dose: 60 mg Morphine Sulfate (Morphine) 2 mg IVPUSH Q2H PRN PRN Reason: Pain Morphine Sulfate (Morphine) 2 mg IVPUSH Q2H PRN PRN Reason: Pain (severe 7-10) Stop: 07/09/17 05:57 Ondansetron HCl (Zofran Odt) 4 mg PO Q4H PRN PRN Reason: nausea, able to take PO Sodium Chloride (Saline Flush) 10 ml FLUSH ASDIRECTED PRN PRN Reason: Keep Vein Open Sodium Chloride (Saline Flush) 2.5 ml FLUSH ASDIRECTED PRN PRN Reason: Keep Vein Open Discontinued Medications Albuterol/Ipratropium (Duoneb 3.0-0.5 Mg/3 Ml) 3 ml NEB ONETIME ONE Stop: 07/07/17 21:15 Last Admin: 07/07/17 21:27 Dose: 3 ml Albuterol/Ipratropium (Duoneb 3.0-0.5 Mg/3 Ml) Confirm Administered Dose 3 ml .ROUTE .STK-MED ONE Stop: 07/07/17 21:15 Last Admin: 07/07/17 21:27 Dose: Not Given Albuterol/Ipratropium (Duoneb 3.0-0.5 Mg/3 Ml) 3 ml NEB ONETIME ONE Stop: 07/07/17 21:52 Last Admin: 07/07/17 21:56 Dose: 3 ml Sodium Chloride (Normal Saline) 1,000 mls @ 999 mls/hr IV STAT ONE Stop: 07/07/17 22:14 Last Admin: 07/07/17 21:27 Dose: 999 mls/hr Ketorolac Tromethamine (Toradol) 30 mg IVPUSH ONETIME ONE Stop: 07/07/17 21:58 Last Admin: 07/07/17 22:02 Dose: 30 mg Methylprednisolone Sodium Succinate (Solu-Medrol) 125 mg IVPUSH ONETIME ONE Stop: 07/07/17 21:15 Last Admin: 07/07/17 21:27 Dose: 125 mg - Exam Quality Assessment: Reports: DVT Prophylaxis General: Reports: Alert, Oriented, Cooperative, No Acute Distress HEENT: Reports: Pupils Equal, Pupils Reactive, EOMI, Mucous Membr. Moist/[place] Neck: Reports: Supple Lungs: Reports: Clear to Auscultation, Normal Respiratory Effort Cardiovascular: Reports: Regular Rate, Regular Rhythm, No Murmurs GI/Abdominal Exam: Normal Bowel Sounds, Soft, Non-Tender, No Organomegaly, No Distention, No Abnormal Bruit (Male) Exam: Deferred Rectal (Males) Exam: Deferred Back Exam: Reports: Normal Inspection Extremities: Normal Inspection, Non-Tender, No Pedal Edema, Normal Capillary Refill Skin: Reports: Warm, Dry, Intact Neurological: Reports: No New Focal Deficit Psy/Mental Status: Reports: Alert, Normal Affect, Normal Mood *Q Meaningful Use (DIS) - VTE *Q VTE Criteria *Q: - Stroke *Q Stroke Criteria *Q: - AMI *Q AMI Criteria *Q:
[2017-07-08 08:51] VITALS: BP 153/95
[2017-07-08] MEDS ORDERED: Enoxaparin 40 MG/0.4 ML Syringe SUBCUT SCH (09:00)
--- NOTE | 2017-07-09 13:37 | CR ---
EXAM DATE: 07/07/17 PATIENT'S AGE: 47 Patient: JANIYA TRAVIS Facility: [place], [place] Site . Site : 1970 Study: XRay Chest [id number]/10/2018 9:49:50 PM Ordering Physician: Javier Bianchi Final Report: HISTORY: Shortness of breath. TECHNIQUE: Two views of the chest. COMPARISON: 05/22/2017. FINDINGS: Cardiac size and pulmonary vasculature are within normal limits. There is no acute lung infiltrate or pulmonary edema. No pneumothorax or pleural effusion. No acute bony abnormality. IMPRESSION: No acute disease. Dictated by Shaw Sotelo MD @ 07/07/2017 9:58:09 PM Dictated by: Shaw Sotelo MD @ 07/07/2017 21:58:13 (Electronic Signature) Report Signed by Proxy. [facility]
== END 2017-07-08 10:30 | disposition home or self-care (01) ==
LOC: MW.ED 21:12 → MW.MS 22:20
PROVIDERS: ADMIT Family Medicine; ATTEND Family Medicine
DX: J45.41 Moderate persistent asthma with (acute) exacerbation (principal); R09.02 Hypoxemia; I10 Essential (primary) hypertension; E66.9 Obesity, unspecified; F17.210 Nicotine dependence, cigarettes, uncomplicated; Z79.51 Long term (current) use of inhaled steroids; Z68.30 Body mass index [BMI] 30.0-30.9, adult
CPT/HCPCS: 36415; 71046; 80048; 80053; 83605; 85025; 87804; 93005; 96361; 96374; 96375; 99285; J1650; J1885; J2920; J2930; J7040; 96372; 96376; 99284; G0378

== ENCOUNTER 2017-08-18 15:44 | Emergency (ER) | payer OTHER ==
[2017-08-18] MEDS ORDERED: Albuterol/Ipratropium 3.0-0.5 MG/3 ML Neb Soln NEB ONE (16:09)
[2017-08-18] MEDS ORDERED: methylPREDNISolone Sodium Succinate 125 MG/2 ML SDV IVPUSH ONE (16:09)
[2017-08-18] MEDS ORDERED: Sodium Chloride 0.9% 2.5 ML Syringe FLUSH PRN (16:13)
[2017-08-18] MEDS ORDERED: Sodium Chloride 0.9% 10 ML Syringe FLUSH PRN (16:13)
[2017-08-18 17:04] LABS: CHLORIDE,CL 106 mmol/L (98-107); SODIUM,NA 140 mmol/L (136-148)
[2017-08-18 17:07] VITALS: BP 171/87
--- NOTE | 2017-08-18 17:11 | EDM.PDOC ---
ED HPI GENERAL MEDICAL PROBLEM - General Chief Complaint: Respiratory Problem Stated Complaint: ASTHMA ATTACK Time Seen by Provider: 08/18/17 15:48 - History of Present Illness INITIAL COMMENTS - FREE TEXT/NARRATIVE: HISTORY AND PHYSICAL: []47-year-old gentleman presenting with increasing asthma /coughing History of Present Illness: []This is been sick for the last 2 days using the nebulizer at home Review of Systems: As per history of present illness and below otherwise all systems reviewed and negative. Past medical history: As per history of present illness and as reviewed below otherwise noncontributory. Surgical history: As per history of present illness and as reviewed below otherwise noncontributory. Social history: No reported history of drug or alcohol abuse. Family history: As per history of present illness and as reviewed below otherwise noncontributory. Physical exam: Alert and oriented gentleman wheezing speaking in 4-5 word sentences. Skin is warm and dry HEENT: Atraumatic, normocehpalic, pupils reactive, negative for conjunctival pallor or scleral icterus, mucous membranes moist, throat clear, neck supple, nontender, trachea midline. Lungs: Clear to auscultation, breath sounds equal bilaterally, chest non tender. Heart: S1S2, regular, negative for clicks, rubs, or JVD. Abdomen: Soft, nondistended, nontender. Negative for masses or hepatossplenmegaly. Negative for costovertebral tenderness. Pelvis: Stable nontender. Genitourinary: Deferred. Rectal: Deferred Extremities: Atraumatic, negative for cords or calf pain. Neurovascular unremarkable. Neuro: Awake, alert, oriented. Cranial nerves II through XII unremarkable. Cerebellum unremarkable. Motor and sensory unremarkable throughout. Exam nonfocal. Diagnostics: [Chest x-ray CBC CMP flu] Therapeutics: [DuoNeb] Impression: []Exacerbation of his asthma Plan: []Discharge home Follow up with your primary care next week Return to ER as necessary and as discussed Definitive disposition and diagnosis as appropriate pending reevaluation and review of above. - Related Data Allergies Allergy/AdvReac Type Severity Reaction Status Date / Time No Known Allergies Allergy Verified 08/18/17 16:10 Home Meds: Home Meds Albuterol [Ventolin HFA] 2 inh INH Q4HR PRN 08/28/16 [History] Albuterol/Ipratropium [DuoNeb 3.0-0.5 MG/3 ML] 1 ampule PO ASDIRECTED 08/28/16 [ History] Fluticasone/Vilanterol [Breo Ellipta 200-25 Mcg INH] 1 each IH DAILY 05/23/17 [ History] Losartan/Hydrochlorothiazide [Losartan-HCTZ 50-12.5 MG] 1 each PO BEDTIME [History] methylPREDNISolone [Medrol] 4 mg PO ASDIRECTED #1 dosepk 08/18/17 [Rx] Past Medical History HEENT History: Reports: Impaired Vision Other HEENT History: Patient reports farsightedness Cardiovascular History: Reports: Hypertension Respiratory History: Reports: Asthma Gastrointestinal History: Reports: None Genitourinary History: Reports: None, Retention, Urinary Musculoskeletal History: Reports: None, Gout Neurological History: Reports: None Psychiatric History: Reports: None Endocrine/Metabolic History: Reports: None, Obesity/BMI 30+ Hematologic History: Reports: None Immunologic History: Reports: None Oncologic (Cancer) History: Reports: None Dermatologic History: Reports: None - Infectious Disease History Infectious Disease History: Reports: Chicken Pox - Past Surgical History HEENT Surgical History: Reports: Naso-Sinus Surgery, Polypectomy Musculoskeletal Surgical History: Reports: None, Other (See Below) Social & Family History - Family History Family Medical History: Noncontributory Cardiac: Reports: Hypertension, OR Respiratory: Reports: Asthma, Other (See Below) Other Respiratory Family Hisory: Mother had lung CA. She was a heavy smoker. Oncologic: Reports: Lung - Tobacco Use Smoking Status *Q: Never Smoker Years of Tobacco use: 20 Packs/Tins Daily: 1 Second Hand Smoke Exposure: No - Caffeine Use Caffeine Use: Reports: Coffee Caffeine Use Comment: Occasional coffee drinker - Alcohol Use Days Per Week of Alcohol Use: 0 Number of Drinks Per Day: 0 Total Drinks Per Week: 0 - Recreational Drug Use Recreational Drug Use: No - Living Situation & Occupation Living situation: Reports: Occupation: Employed ED ROS GENERAL - Review of Systems Review Of Systems: ROS reveals no pertinent complaints other than HPI. ED EXAM, GENERAL - Physical Exam Exam: See Below (see dictation) Course - Vital Signs Last Recorded V/S: Last Vital Signs Temp 36.9 C 08/18/17 16:03 Pulse 94 08/18/17 16:03 Resp 28 H 08/18/17 16:03 BP 189/91 H 08/18/17 16:03 Pulse Ox 94 L 08/18/17 16:03 - Orders/Labs/Meds Orders: Active Orders 24 hr Category Date Time Status RT Aerosol Therapy [RC] ASDIRECTED Care 08/18/17 16:09 Active Chest 2V [CR] Stat Exams 08/18/17 16:09 Taken Sodium Chloride 0.9% [Saline Flush] Med 08/18/17 16:13 Active 10 ml FLUSH ASDIRECTED PRN Sodium Chloride 0.9% [Saline Flush] Med 08/18/17 16:13 Active 2.5 ml FLUSH ASDIRECTED PRN Saline Lock Insert [OM.PC] Stat Oth 08/18/17 16:13 Ordered Medication Orders Sodium Chloride (Saline Flush) 10 ml FLUSH ASDIRECTED PRN PRN Reason: Keep Vein Open Sodium Chloride (Saline Flush) 2.5 ml FLUSH ASDIRECTED PRN PRN Reason: Keep Vein Open Labs: Laboratory Tests 08/18/17 08/18/17 Range/Units 16:23 16:23 WBC 8.34 (4.0-11.0) K/uL RBC 4.56 (4.50-5.90) M/uL Hgb 14.3 (13.0-17.0) g/dL Hct 40.4 (38.0-50.0) % MCV 88.6 (80.0-98.0) fL MCH 31.4 (27.0-32.0) pg MCHC 35.4 (31.0-37.0) g/dL RDW Std Deviation 45.9 (28.0-62.0) fl RDW Coeff of Jesika 14 (11.0-15.0) % Plt Count 279 (150-400) K/uL MPV 9.20 (7.40-12.00) fL Neut % (Auto) 59.8 (48.0-80.0) % Lymph % (Auto) 18.7 (16.0-40.0) % [place] % (Auto) 6.7 (0.0-15.0) % Eos % (Auto) 14.3 H (0.0-7.0) % Baso % (Auto) 0.5 (0.0-1.5) % Neut # (Auto) 5.0 (1.4-5.7) K/uL Lymph # (Auto) 1.6 (0.6-2.4) K/uL [place] # (Auto) 0.6 (0.0-0.8) K/uL Eos # (Auto) 1.2 H (0.0-0.7) K/uL Baso # (Auto) 0.0 (0.0-0.1) K/uL Nucleated RBC % 0.0 /100WBC Nucleated RBCs # 0 K/uL Sodium 140 (136-148) mmol/L Potassium 3.3 L (3.5-5.1) mmol/L Chloride 106 (98-107) mmol/L Carbon Dioxide 24.4 (21.0-32.0) mmol/L BUN 18 (7.0-18.0) mg/dL Creatinine 1.1 (0.8-1.3) mg/dL Est Cr Clr Drug Dosing TNP Estimated GFR (MDRD) > 60.0 ml/min Glucose 100 (74-106) mg/dL Calcium 9.0 (8.5-10.1) mg/dL Total Bilirubin 1.2 H (0.2-1.0) mg/dL AST 27 (15-37) IU/L ALT 47 (14-63) IU/L Alkaline Phosphatase 101 (46-116) U/L Total Protein 6.9 (6.4-8.2) g/dL Albumin 3.2 L (3.4-5.0) g/dL Globulin 3.7 H (2.0-3.5) g/dL Albumin/Globulin Ratio 0.9 L (1.3-2.8) Meds: Medications Generic Name Dose Route Start Last Admin Trade Name Freq PRN Reason Stop Dose Admin Sodium Chloride 10 ml 08/18/17 16:13 Saline Flush FLUSH ASDIRECTED PRN Keep Vein Open Sodium Chloride 2.5 ml 08/18/17 16:13 Saline Flush FLUSH ASDIRECTED PRN Keep Vein Open Discontinued Medications Generic Name Dose Route Start Last Admin Trade Name Freq PRN Reason Stop Dose Admin Albuterol/Ipratropium 3 ml 08/18/17 16:09 08/18/17 16:18 Duoneb 3.0-0.5 Mg/3 Ml NEB 08/18/17 16:10 3 ml ONETIME ONE Administration Methylprednisolone Sodium Succinate 125 mg 08/18/17 16:09 08/18/17 16:21 Solu-Medrol IVPUSH 08/18/17 16:10 125 mg ONETIME ONE Administration Departure - Departure Time of Disposition: 17:09 Disposition: Home, Self-Care 01 Condition: Good Clinical Impression: Exacerbation of asthma Qualifiers: Asthma severity: mild Asthma persistence: intermittent Qualified Code(s): J45.21 - Mild intermittent asthma with (acute) exacerbation - Discharge Information Prescriptions: methylPREDNISolone [Medrol] 4 mg PO ASDIRECTED #1 dosepk Instructions: Asthma, Adult Referrals: PCP,None [Primary Care Provider] - Additional Instructions: The following information is given to patients seen in the emergency department who are being discharged to home. This information is to outline your options for follow-up care. We provide all patients seen in our emergency department with a follow-up referral. The need for follow-up, as well as the timing and circumstances, are variable depending upon the specifics of your emergency department visit. If you don't have a primary care physician on staff, we will provide you with a referral. We always advise you to contact your personal physician following an emergency department visit to inform them of the circumstance of the visit and for follow-up with them and/or the need for any referrals to a consulting specialist. The emergency department will also refer you to a specialist when appropriate. This referral assures that you have the opportunity for followup care with a specialist. All of these measure are taken in an effort to provide you with optimal care, which includes your followup. Under all circumstances we always encourage you to contact your private physician who remains a resource for coordinating your care. When calling for followup care, please make the office aware that this follow-up is from your recent emergency room visit. If for any reason you are refused follow-up, please contact the [facility] emergency department at and asked to speak to the emergency department charge nurse. You had a respiratory treatment with ipratropium No pneumonia was noted on your x-ray Laboratory values were negative for infection and influenza Follow-up with your primary care provider next week for reevaluation Prescription for Medrol Dosepak was sent to your pharmacy chronically Return to the emergency room as needed as discussed and directed - My Orders Last 24 Hours: My Active Orders 08/18/17 16:09 RT Aerosol Therapy [RC] ASDIRECTED Chest 2V [CR] Stat 08/18/17 16:13 Sodium Chloride 0.9% [Saline Flush] 10 ml FLUSH ASDIRECTED PRN Sodium Chloride 0.9% [Saline Flush] 2.5 ml FLUSH ASDIRECTED PRN Saline Lock Insert [OM.PC] Stat - Assessment/Plan Last 24 Hours: My Active Orders 08/18/17 16:09 RT Aerosol Therapy [RC] ASDIRECTED Chest 2V [CR] Stat 08/18/17 16:13 Sodium Chloride 0.9% [Saline Flush] 10 ml FLUSH ASDIRECTED PRN Sodium Chloride 0.9% [Saline Flush] 2.5 ml FLUSH ASDIRECTED PRN Saline Lock Insert [OM.PC] Stat
--- NOTE | 2017-08-20 15:16 | CR ---
EXAM DATE: 08/18/17 PATIENT'S AGE: 47 Patient: JANIYA TRAVIS Facility: [place], [place] Site . Site : 1970 Study: XRay Chest [id number]/24/2018 4:54:04 PM Ordering Physician: Doctor Brizuela Final Report: INDICATION: Asthma, pain, shortness of breath. TECHNIQUE: Upright PA and lateral views. FINDINGS: The heart mediastinum and pulmonary vessels are within normal limits. Slightly increased perihilar density, nonspecific. No localized alveolar opacity. No focal alveolar infiltrate. There are no acute/regressive osseous lesions. IMPRESSION: No acute findings. Dictated by Olayinka Lopez MD @ Aug 18 2017 4:56PM (Electronic Signature) Report Signed by Proxy. [facility]
== END 2017-08-18 17:15 | disposition home or self-care (01) ==
LOC: MW.ED 15:44
DX: J45.21 Mild intermittent asthma with (acute) exacerbation (principal); E66.9 Obesity, unspecified
CPT/HCPCS: 36415; 71046; 80053; 85025; 87804; 94640; 96374; 99285; J2930; 99283